=== PATIENT | female | born 1955 | race Caucasian/White ===

== ENCOUNTER 2017-03-23 12:57 | Emergency (ER) | payer OTHER ==
[~2017-03-23] VITALS: Ht 154.9 cm; Wt 50.0 kg
[~2017-03-23 12:57] MED LIST: DNSIS60 SQ; HYDR-3419 PO; ONDA4TAB46 PO; SULI200T4 PO
[2017-03-23 13:01] VITALS: TEMP 36.8; Ht 154.9 cm; Wt 50.0 kg
[2017-03-23] MEDS ORDERED: ACETAMINOPHEN 500 MG TAB PO STA (13:35)
[2017-03-23] MEDS ORDERED: KETOROLAC TROMETHAMINE 30 MG/ML VIAL IV STA (13:35)
[2017-03-23] MEDS ORDERED: HYDROmorphone INJ 2 MG/ML SYR/VIAL IV STA (13:35)
[2017-03-23] MEDS ORDERED: ONDANSETRON INJ 2 MG/ML 2 ML VIAL IV STA (13:35)
[2017-03-23] MEDS ORDERED: DEXAMETHASONE INJ 10 MG in SYRINGE 0 ML IV STA (13:35)
[2017-03-23] MEDS ORDERED: HYDROmorphone INJ 1 MG/ML SYR ONE (13:55)
[2017-03-23] MEDS ORDERED: DEXAMETHASONE **PF** INJ 10 MG/ML VIAL ONE (13:58)
[2017-03-23] MEDS ORDERED: PRED-301 PO (14:09)
[2017-03-23] MEDS ORDERED: NABU500T3 PO (14:09)
[2017-03-23] MEDS ORDERED: TRAM-10 PO (14:10)
[2017-03-23] MEDS ORDERED: OXYCODONE HCL IR 5 MG TAB (IMMEDIATE RELEASE) PO STA (16:15)
[2017-03-23] MEDS ORDERED: OXYC1TAB3 PO (16:38)
[2017-03-23] MEDS ORDERED: METH4PAK PO (16:38)
--- NOTE | 2017-03-23 16:39 | EMERGENCY ROOM VISIT NOTE ---
History Report prepared by Chloé: Ashwin Helm Under the Supervision of: Dr. David Frank M.D. First contact with patient: 13:19 Chief Complaint: LEG PAIN,LEG INJURY Stated Complaint: EXTREME PAIN IN BOTH LEGS History of Present Illness The patient is a 62 year old white female with a past medical history of RA, and osteoporosis who presents to the ED with a cc of constant bilateral leg pain beginning yesterday. Positive leg numbness and tingling. Rates her pain as a 10/10 in severity. She attributes her symptoms to arthritis of her lumbar spine. She chronically has pain, numbness and tingling below the knees for the past month. Nothing has improved her symptoms. She is on Prednisone for her RA. No recent trauma or falls. No IV drug use. Difficulty with urination this morning which she attributes to taking Tramadol. Negative incontinence, other urinary symptoms, or weakness. Source of History: patient Onset: Yesterday Position: leg (bilateral) Symptom Intensity: 10/10 Timing: constant Modifying Factors (Relieving): other (none) Associated Symptoms: + numbness (bilateral leg), No weakness Note: Additional symptoms: bilateral leg tingling. Negative incontinence. Review of Systems See HPI for pertinent positives and negatives. A total of ten systems were reviewed and were otherwise negative. Past Medical & Surgical Medical Problems: (1) Aseptic loosening of prosthetic knee (2) Cervical stenosis of spinal canal (3) Osteoporosis (4) Rheumatoid arthritis Family History No pertinent family history stated. Social History Smoking Status: Never Smoker Drug Use: none Current/Historical Medications Scheduled Denosumab (Prolia), 1 DOSE SQ DIRECTED Methylprednisolone (Medrol Dosepak), 1 PKT PO DAILY Nabumetone (Relafen), 1 DOSE PO BID Prednisone (Prednisone), 5 MG PO BID Scheduled PRN Oxycodone Immediate Rel Tab (Roxicodone Ir), 5 MG PO Q6H PRN for Pain Tramadol (Ultram), 50 MG PO QID PRN for Pain Allergies Coded Allergies: Chlorhexidine (Verified Allergy, Intermediate, REDNESS/ITCHING, 03/23/17) Adhesives (Verified Allergy, Unknown, ALLERGIC TO TAPE, HOWEVER PAPER TAPE IS OK, 03/23/17) Uncoded Allergies: VICRYL (Allergy, Unknown, "SUTURES DON'T DISSOLVE", 07/15/13) Physical Exam Vital Signs Date Time Temp Pulse Resp B/P (MAP) Pulse Ox O2 Delivery O2 Flow Rate FiO2 03/23/17 17:43 106 20 136/74 96 03/23/17 16:21 99 16 97 Room Air 03/23/17 15:22 102 16 131/82 99 Room Air 03/23/17 14:22 111 16 98 Room Air 03/23/17 13:35 115 03/23/17 13:29 111 22 144/88 100 Room Air 03/23/17 13:01 36.8 120 18 99 Room Air Physical Exam GENERAL: Awake, alert, well-appearing, NAD HENT: Normocephalic, atraumatic. EYES: Normal conjunctiva. Sclera non-icteric. NECK: Supple. No nuchal rigidity. FROM. RESPIRATORY: CTAB, no rhonchi, wheezing, crackles CARDIAC: RRR, no MRG ABDOMEN: Soft, NTND, BS+ MSK: No chest wall TTP, no LE edema. Kines-tape in place. No reproducible midline or paraspinal TTP. Negative straight leg raise bilaterally. No pain with internal or external rotation of the hip. Good extension and flexion of the hip, knee, and ankle. No saddle anesthesia. NEURO: GCS 15, CN 2-12 intact, moves all 4s on command SKIN: No rash or jaundice noted. Medical Decision & Procedures Medications Administered Medications (Trade) Dose Ordered Sig/Golden Route Start Time Stop Time Status Last Admin Dose Admin Ondansetron HCl (Zofran Inj) 4 mg NOW STAT IV 03/23/17 13:35 03/23/17 13:40 DC 03/23/17 14:11 4 MG Acetaminophen (Tylenol Tab) 1,000 mg NOW STAT PO 03/23/17 13:35 03/23/17 13:40 DC 03/23/17 14:13 1,000 MG Ketorolac Tromethamine (Toradol Inj) 30 mg NOW STAT IV 03/23/17 13:35 03/23/17 13:40 DC 03/23/17 14:12 30 MG Hydromorphone HCl (Dilaudid Inj) 1 mg STK-MED ONCE .ROUTE 03/23/17 13:55 03/23/17 13:56 DC 03/23/17 14:11 1 MG Dexamethasone Sodium Phosphate (Dexamethasone Inj Pf) 10 mg STK-MED ONCE .ROUTE 03/23/17 13:58 03/23/17 13:59 DC 03/23/17 14:12 10 MG Oxycodone HCl (Roxicodone Immediate Rel Tab) 5 mg NOW STAT PO 03/23/17 16:15 03/23/17 16:16 DC 03/23/17 16:23 5 MG ED Course 1329: The patient was evaluated in room A12B. A complete history and physical exam was performed. 1625: I reevaluated the patient. Discussed results and discharge instructions: she verbalized understanding and agreement. The patient is ready for discharge. Medical Decision The patient is a 62 year old white female with a past medical history of RA, and osteoporosis who presents to the ED with a cc of constant bilateral leg pain beginning yesterday. Differential diagnosis: Etiologies such as musculoskeletal, disc herniation, fracture, aortic disease, metastatic disease, cord compression, discitis, infection, renal colic, gastrointestinal, acute exacerbation of chronic back pain, sciatica, cauda equina, as well as others were entertained. Patient was seen and evaluated at the bedside. Patient does have a prior history of rheumatoid arthritis as well as some spinal degenerative disease. Patient did have a recent MRI was seen by Dr. Valero who is following her. Patient was complaining of some pain. Patient does take DMARDs but no other immunosuppressants. Patient denies any bowel or bladder incontinence, saddle anesthesia, unexplained weight loss, history of cancer, IV drug abuse, or fever. Patient did complain of some bilateral lower extremity numbness in her feet which she said is chronic in nature. Patient does have some difficulty with flexion and extension at the ankle secondary to her RA. On exam the patient is able to flex and extend at the hip the knee and the ankles without issue. Patient does have feeling in her SP, DP, and tibialis sensory areas in her lower extremities. Given that the patient doesn't have any new or red flag type symptoms no imaging was obtained. The patient did receive pain medication. I did discuss case with Dr. Valero was on-call he agreed to have her follow-up. I did talk with case management who arranged for follow-up tomorrow. Patient was given a Medrol Dosepak as well as some narcotic medication. Patient was told that she should take her steroids as well as Tylenol and that if she still had pain she could try the tramadol. If she still continued to have discomfort she could take the narcotic. Patient was advised that narcotic medication can be sedating and cause respiratory depression and that they are habit forming. Patient understood. Patient was deemed suitable for outpatient follow-up and treatment at this time. Patient was given strict follow-up, discharge, and return precautions. All questions were answered. Patient was deemed suitable for outpatient follow-up at this time. Patient agreed with the plan of care and was safely discharged home. The chart was completed utilizing OpenText Speech voice recognition software. Grammatical errors, random word insertions, pronoun errors, and incomplete sentences are an occasional consequence of this system due to software limitations, ambient noise, and hardware issues. Any formal questions or concerns about the content, text, or information contained within the body of this dictation should be directly addressed to the physician for clarification. Medication Reconcilliation Current Medication List: was personally reviewed by me Blood Pressure Screening Patient's blood pressure: Elevated blood pressure Blood pressure disposition: Elevated BP felt to be situational Consults Time Called: 1550 Consulting Physician: Dr. Valero - Orthopedics Returned Call: 1554 Discussed the patient's case. Dr. Valero does not feel that any intervention is warranted, and recommends pain control. Impression Primary Impression: Back pain Scribe Attestation The scribe's documentation has been prepared under my direction and personally reviewed by me in its entirety. I confirm that the note above accurately reflects all work, treatment, procedures, and medical decision making performed by me. Departure Information Dispostion Home / Self-Care Prescriptions Oxycodone Immediate Rel Tab (ROXICODONE IR) 5 Mg Tab 5 MG PO Q6H Y for Pain, #12 TAB Prov: David Frank M.D. 03/23/17 Methylprednisolone (MEDROL DOSEPAK) 4 Mg Dallin 1 PKT PO DAILY, #1 PKT Prov: David Frank M.D. 03/23/17 Referrals Doron Veloz D.OMichelle (PCP) Patient Instructions Back Pain - [facility], Back Pain Relieve, Leg Low Back Pain Poss Causes, My [facility] Additional Instructions Please return to the emergency department if you have worsening or recurrent symptoms not amenable to at-home treatment. Please call for a follow-up appointment with her primary care physician. Please take your medications as prescribed. If you have other concerns and/or complaints please feel free to also call your primary care physician's office or return the ED for further evaluation, management, and treatment. Please take your steroids preferably in the morning with food. Do not take NSAIDs while taking this medication. You may consider taking a Pepcid or Zantac to help with the possible upset stomach. Please keep her follow-up appointment tomorrow in Dr. Valero's office. You received narcotic or benzodiazepene medication while in the emergency room today. This is an addictive medication that may cause drowziness as well as constipation. Do not drive, operate heavy machinery, or drink alcohol under the influence of this medication. You may take tylenol 1000 mg every 6 hours as needed for pain. As we discussed please take your medications in a stepwise fashion. He may take the steroids as well as Tylenol. If he still have discomfort he may take the tramadol. If you are still having discomfort you then may take the narcotic. Please only use the narcotics as needed. They are habit forming and cause sedation and/or a respiratory depression. Take your medications as prescribed. You have been examined and treated today on an emergency basis only. This is not a substitute for, or an effort to provide, complete comprehensive medical care. It is impossible to recognize and treat all injuries or illnesses in a single emergency department visit. It is therefore important that you follow up closely with [facility], your PCP, and/or your specialist(s). Call as soon as possible for an appointment. Thank you for your time and consideration. I look forward to speaking with you again soon. Please don't hesitate to call us if you have any questions. Problem Qualifiers Primary Impression: Back pain Back pain location: low back pain Chronicity: chronic Back pain laterality : unspecified Sciatica presence: unspecified whether sciatica present Qualified Codes: M54.5 - Low back pain; G89.29 - Other chronic pain
[2017-03-23 17:43] VITALS: BP 136/74; PULSE 106; O2SAT 96
== END 2017-03-23 17:43 | disposition home or self-care (01) ==
LOC: C.EDB 12:58 → C.EDA 17:43
DX: M54.5 Low back pain (principal); G89.29 Other chronic pain; R20.0 Anesthesia of skin; R20.2 Paresthesia of skin; M06.9 Rheumatoid arthritis, unspecified; M81.0 Age-related osteoporosis without current pathological fracture; M47.816 Spondylosis without myelopathy or radiculopathy, lumbar region; M48.02 Spinal stenosis, cervical region

== ENCOUNTER 2019-02-05 02:19 | Inpatient (IN) ==
[2019-02-05] MEDS ORDERED: ALUMINUM/MAGNESIUM SUSP 30 ML UDC PO STA (02:43)
[2019-02-05] MEDS ORDERED: FAMOTIDINE 20MG/5ML IV PUSH IV STA (02:43)
[2019-02-05] MEDS ORDERED: fentaNYL citrate 100 MCG/2 ML VIAL IV STA (02:50)
[2019-02-05] MEDS ORDERED: ASPIRIN CHEW 324 MG PO STA (02:50)
[2019-02-05 02:56] LABS: Basophils # (auto) 0.05 K/uL (0-0.2); Basophils % (auto) 0.4 %; Eosinophils # (auto) 0.22 K/uL (0-0.5); Eosinophils % (auto) 1.7 %; Hematocrit (blood only) 43.2 % (37-47); Hemoglobin 15.1 g/dL (12.0-16.0); Immature Granulocytes # (auto) 0.02 K/uL (0.00-0.02); Immature Granulocytes % (auto) 0.2 %; Lymphocytes % (auto) 28.9 %; Mean Corpuscular Hemoglobin 32.5 pg (25-34); Mean Corpuscular Volume 93.1 fL (80-100); Mean Platelet Volume 8.4 fL (7.4-10.4); Monocytes # (auto) 0.96 K/uL (0.11-0.59); Monocytes % (auto) 7.5 %; Neutrophils # (auto) 7.84 K/uL (1.4-6.5); Neutrophils % (auto) 61.3 %; Platelet Count 286 K/uL (130-400); RDW Coefficient of Variation 13.2 % (11.5-14.5); RDW Standard Deviation 44.8 fL (36.4-46.3); Red Blood Count 4.64 M/uL (4.2-5.4); White Blood Count 12.79 K/uL (4.8-10.8)
[2019-02-05] MEDS ORDERED: fentaNYL citrate 100 MCG/2 ML VIAL ONE (03:07)
[2019-02-05] MEDS ORDERED: NiCARDipine HCL INJ 2.5 MG/ML 10 ML AMP ONE (03:07)
[2019-02-05] MEDS: SODIUM CHLORIDE 0.9% 500 ML IV SCH ×3 (03:07→11:27)
[2019-02-05] MEDS ORDERED: HEPARIN (PORCINE) 1000 UNIT/ML 10 ML (CATH LAB USE ONLY) ONE (03:07)
[2019-02-05] MEDS ORDERED: MIDAZOLAM HCL 1 MG/ML 2ML VIAL ONE ×2 (03:08→04:08)
[2019-02-05] MEDS ORDERED: NITROGLYCERIN/D5W 100MCG/ML 20ML SYR ONE (03:08)
[2019-02-05 03:19] LABS: D Dimer 2060 ug/L FEU (0-500)
[2019-02-05 03:22] LABS: Albumin Level 4.3 gm/dl (3.4-5.0); BUN Creatinine Ratio 18.3 (10-20); Calcium 9.4 mg/dl (8.5-10.1); Creatinine Clr Calc Pharmacy 57.9 ml/min; Est GFR (African American) 96.6; Est GFR (Non-African American) 83.3; Potassium 3.2 mmol/L (3.5-5.1)
--- NOTE | 2019-02-05 03:30 | Pre Anesthesia Assessment ---
Date of Service February 05, 2019 Pre Sedation Assessment Vital Signs Temp Pulse Pulse Resp BP Pulse Ox 02/05/19 03:10 92 H 20 148/90 H 97 02/05/19 02:48 84 20 118/70 96 02/05/19 02:22 97.3 F L 81 18 99 Cardiovascular RRR, no murmur, no edema Respiratory normal respiratory effort, lungs clear to auscultation Pre-Sedation Airway Assessment Smoking Status: Never smoker Hx Sleep Apnea: No Hx Difficult Intubation: No Short, Thick Neck: No Thyromental Distance: > or= 3.5 Finger Breadths Oral Cavity: + WNL Mallampati Class: III ASA: ASA3 Procedure Planning Contraindications for Sedation: none Current Medications Reviewed: Yes Notes The planned sedation has been discussed with the patient. Informed Consent was obtained. I have identified the patient, determined the appropriateness of sedation and have assessed the patient immediately prior to the procedure. All medicine(s) and interventions are by my order.
--- NOTE | 2019-02-05 03:34 | Cardiology Consultation ---
Date of Consultation February 05, 2019 Assessment & Plan (1) ACS (acute coronary syndrome): Presentation concerning for acute MO and recommend proceeding with emergent cardiac catheterization and likely primary PCI. No apparent contraindications to procedure. Discussed risks, benefits, alternatives of procedure with patient and they are willing to proceed. Further recommendations pending findings of coronary angiography. History of Present Illness History of Present Illness 63-year-old woman here with acute chest pain and ECG concerning for acute MO. Patient seen emergently in the ED after heart alert activated post ECG on arrival. Reports no significant cardiac history other than a prior echo for murmur and palpitations. Her medical history is remarkable for rheumatoid arthritis, cervical stenosis with chronic pain and lower extremity neuropathy. She also has osteoporosis/osteoarthritis and is post total knee replacement. Reports remote DVT potentially in setting of surgery. Chest pain began approximately 30 minutes after dinner last night. Describes as substernal chest pressure with associated belching. Pain radiating up into the neck. Denies similar symptoms in the past. Pain at its worst 8 out of 10, now 4 out of 10 following pain meds in the ED. Hemodynamically stable. EKG showed subtle inferior ST elevations and lateral ST depressions. Allergies Allergy/AdvReac Type Severity Reaction Status Date / Time chlorhexidine Allergy Intermediate REDNESS/ITC Verified 02/05/19 02:55 ARBEN adhesive Allergy Unknown ALLERGIC Verified 02/05/19 02:55 TO TAPE, HOWEVER PAPER TAPE IS OK VICRYL Allergy Unknown "SUTURES Uncoded 02/05/19 02:55 DON'T DISSOLVE" Home Medications Home Medications Medication Instructions Recorded Confirmed Type adalimumab [Humira Pen] 0 mg SUBCUT .COMPLEX 02/05/19 02/05/19 History denosumab [Prolia] 0 mg SUBCUT USEASDIRECTD 02/05/19 02/05/19 History gabapentin 600 mg PO TID 02/05/19 02/05/19 History nabumetone 500 mg PO BID 02/05/19 02/05/19 History Patient History Medical History (Updated 02/05/19 @ 04:21 by Page Mendoza) Aseptic loosening of prosthetic knee (Resolved 07/19/13) Cervical stenosis of spinal canal (Chronic 04/11/14) Osteoporosis (Chronic) Rheumatoid arthritis (Chronic) Surgical History No pertinent past surgical history Social History Feels Safe at Home: Yes Smoking Status: Never smoker Review of Systems Review of Systems: not obtained in the setting of emergent situation Physical Exam Physical Exam: General: Comfortable, no acute distress HEENT: Sclerae anicteric, mucous membranes moist Lungs: Clear to auscultation bilaterally Cardiac: Regular rate and rhythm, no murmurs. Abdomen: Soft, nontender, nondistended, positive bowel sounds. Extremities: Warm, well perfused, no edema. 2+ radial pulses. Joint deformities consistent with rheumatoid arthritis Skin: No rashes or lesions. Neuro: Nonfocal Psych: Alert orient x3, normal affect and mood Results & Data Vital Signs (Past 12 Hours) Vital Signs Temp Pulse Pulse Resp BP Pulse Ox 02/05/19 03:10 92 H 20 148/90 H 97 02/05/19 02:48 84 20 118/70 96 02/05/19 02:22 97.3 F L 81 18 99 PG Care Time/CCT Total # of Minutes Spent Total Time Spent with Patient: Total time spent is greater than 50% in coordination of care (as documented) at patient's floor/unit and/or counseling patient:
[2019-02-05 03:44] LABS: Albumin Globulin Ratio 0.9 (0.9-2); Bilirubin,Total 0.4 mg/dl (0.2-1); Globulin 4.7 gm/dl (2.5-4.0); Troponin I 0.08 ng/ml (0-0.045)
[2019-02-05] MEDS ORDERED: ATROPINE SULFATE 0.1 MG/ML 10ML SYR IV ONE (04:01)
[2019-02-05] MEDS ORDERED: DOPamine 400MG / 250ML D5W (CATH LAB USE ONLY) ONE (04:02)
[2019-02-05] MEDS ORDERED: TICAGRELOR 90 MG TAB PO ONE (04:28)
[2019-02-05] MEDS ORDERED: ICU PROTOCOL FOR HYPERGLYCEMIA PRN (04:37)
[2019-02-05] MEDS ORDERED: ONDANSETRON INJ 2 MG/ML 2 ML VIAL IV PRN (04:42)
[2019-02-05] MEDS ORDERED: NSS + 20MEQ KCL 20 MEQ/1,000 ML BAG IV SCH (04:45)
--- NOTE | 2019-02-05 04:46 | Post Anesthesia Assessment ---
Date of Service February 05, 2019 Post Sedation Assessment Vital Signs Temp Pulse Pulse Resp BP Pulse Ox 02/05/19 03:10 92 H 20 148/90 H 97 02/05/19 02:48 84 20 118/70 96 02/05/19 02:22 97.3 F L 81 18 99 Recovery Score Activity: Moves 4 extremities Respiration: Deep Breath/Cough Circulation: +/-20% PreAnes Value Consciousness: Fully Awake Oxygen Saturation: O2 needed for >90% Discharge Sedation Level of Care: Fast Track Phase II Post Sedation Plan On clinical assessment, the patient appears to have tolerated the sedation without complications. Patient is recovering as anticipated. Patient will continue to be monitored by nursing and may be discharged when sedation discharge criteria are met per below protocol. Upon Completions of procedure up to 15 minutes continue every 5 minute vital signs and the P.A.R. score; then discharge to a Phase I or Fast Track to Phase II per the following guidelines: * Discharge Patient to appropriate Phase II area if PAR is 8 or greater or return to pre- procedure baseline. The post - procedure orders will be as directed. * If PAR score is less than 8 or not return to pre-procedure baseline then patient will follow Phase I monitoring till PAR is reached for Phase II. The Phase I may be done in procedure room or may call to secure a Phase I area. * If naloxone or flumazenil are used for reversal, hold in Phase I for continued monitoring from when last reversal dose was given for a minimum of 60 minutes or longer pending the nurse and/or physician discretion of patient condition before discharge to Phase II. Please call the Sedation Physician to re-evaluate and complete post-note for discharge to Phase II area. Do NOT discharge from procedure sedation or Phase 1 until post- sedation evaluation note is complete by procedure /sedation MD Sedation Discharge Instructions to be given to the patient at discharge to home.
--- NOTE | 2019-02-05 04:49 | Cardiac Catheterization ---
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 Cardiac Status Clinical evaluation leading to the procedure CAD Presenation: STEMI Anginal Classification: CCS IV Heart Failure: No Cardiogenic Shock within 24 Hours: No Cardiac Arrest within 24 Hours: No Imaging Studies Past 6 Months: No Stress Studies Past 6 Months: No Diagnostic Physicians Name: Erik Wall MD Status: Emergency Closure Device Percutaneous Entry Location: Radial Closure Device: Radial Band Recommendations: PCI without planned CABG PCI Indication: Immediate PCI for STEMI First Noted: First EKG Lesion Segment Name: Mid RCA Culprit Artery: Yes Stenosis Prior to Rx (%): 100 Chronic Total Occlusion: No IVUS: No FFR: No Pre-Procedure BRITTNEY Flow: 0 Previously Treated Lesion: No Lesion Complexity: High/C Lesion Length (mm): 30 Thrombus Present: Yes Bifurcation Lesion: No Guidewire Across Lesion: Stenosis Post-Procedure (%): 0 Post-Procedure BRITTNEY Flow: 3 Devices(s) Deployed: Yes Yes Intraprocedure Events Significant Disection: No Perforation: No Cardiac Cath Procedure Full Procedure Date February 05, 2019 Pre-Procedure Diagnosis Pre-Procedure Diagnosis: STEMI AUC Score AUC Score: 9 Post-Procedure Diagnosis Post-Procedure Diagnosis: Severe CAD, Unsuccessful PCI and Elevated Intracardiac Pressures Procedure(s) Performed Procedure(s) Performed: Coronary Angiography, Left Heart Cath, Drug Eluting Stent and Ultrasound Guided Vascular Access Tin Flipper Erik Wall MD Podiatric Medicine Doctor(s) Sheryl Estimated Blood Loss Estimated Blood Loss: 15 Medication(s) Medication(s): Atropine, Fentanyl, Heparin, Nicardipine, Nitroglycerin and Versed Medication(s): Ticagrelor Summary of Findings Indication: STEMI/Heart Alert Access: 6 Fr right radial artery under ultrasound guidance Catheters: [place], JR4 guide Findings: LM -Short, medium caliber, luminal irregularities LAD -small to medium caliber, calcified, 60 to 70% mid segment disease, 60% latemid diffuse disease. 2 small diagonals with moderate diffuse disease Circumflex -medium caliber, 80% mid stenosis, 40% latemid stenosis, 50% distal stenosis at takeoff of OM 2. 50 to 60% proximal stenosis of medium caliber, terminal, bifurcating left PLB. RCAlarge caliber, dominant, 100% acute mid occlusion LVEDP -15 -- PCI -- Antithrombotic therapy: Heparin, ticagrelor Procedure: RCA cannulated with JR4 guide Bobtailer 50 wire passed across lesion into distal vessel Mid RCA lesion predilated with 2.5 compliant balloon Post balloon dilation bradycardic to 20s and hypotensive requiring atropine and IV fluids. Dilated lesion stented with 3.5 x 28 mm Xience Palmira Stent post-dilated with 3.5 noncompliant balloon IC vasodilators administered for spasm Residual disease just proximal to stent covered with a second overlapping ELSY (4.0 x 8 mm Xience Palmira). Post procedure BRITTNEY 3 flow, stents well expanded with minimal residual stenosis and no apparent cardiac complications. Arterial Closure: TR band Summary: 1. Acute 100% mid RCA occlusion 2. Severe multi--vessel non-culprit coronary artery disease -80% mid circumflex 60 to 70% mid LAD 3. Normal intracardiac filling pressure 4. Transient bradycardia/hypotension with reperfusion which responded to atropine/IV fluids. 5. Successful PCI of mid RCA occlusion with 2 overlapping drug-eluting stents (4.0 x 8, 3.5 x 28 Xience Palmira). 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 Trend troponins until peak, Check Echo Uptitrate beta-kayla/TRIPP as BP allows High-dose statin Consult cardiac Rehab Plan on staged PCI of circumflex possibly later this hospitalization. Hemodynamics Rest Ao:: 208/106/151 Final Ao: 168/92/120 LV: 219/15 Recommendations Recommendations: PCI without planned CABG Specimens Specimens: None Radiation Exposure (mGy) 1419 Contrast (mls) 120 Fluids (cc crystalloids) Fluids (cc crystalloids): 600 Drains Drains: None Anesthesia Moderate Procedural Complication(s) None Disposition ICU I attest to the content of the Intraoperative Record and any orders documented therein. Any exceptions are noted below. [facility] Card Cath Procedure Codes Cardiac Catheterization Procedure 1: Cardiovascular Cath Procedures: 41141 Coronaries Therapeutic Services & Ancillary Proc Procedure 1: Cardiovascular Tx and Anc Procedures: 50848 Ultrasonic Guidance Vascular Access Moderate Sedation Procedure 1: Sedation/Anesthesia: 13933 Mod Sedation by the same physician;Init15 Min Child Age 5 & Up Procedure 2: Sedation/Anesthesia: 50241 Mod Sedation by the same physician; Ea [id number] Minutes Stenting Procedure 1: Cardiovascular Stent Procedures: 77270 Perc transluminal revascularization of acute sub/total occl, aMI PG Care Time/CCT Total # of Minutes Spent Total Time Spent with Patient: Total time spent is greater than 50% in coordination of care (as documented) at patient's floor/unit and/or counseling patient:
[2019-02-05] MEDS: LISINOPRIL 5 MG TAB PO SCH (05:27)
[2019-02-05 05:40] LABS: Chol HDL Ratio 5; Cholesterol 320 mg/dl (0-200); HDL Cholesterol 67 mg/dl; LDL Cholesterol Calculated 223 mg/dl; Triglycerides 152 mg/dl (0-150); VLDL Cholesterol 30 mg/dl
--- NOTE | 2019-02-05 06:13 | Critical Care Consultation ---
Date of Consultation February 05, 2019 Assessment & Plan (1) Admitted to intensive care unit: Reason Critically Ill: 63-year-old female with acute ST segment elevation myocardial infarction status post PTCA with ELSY x2 to the RCA. NEURO - * CAM ICU: NEGATIVE * Pain: Goal to discern between cardiac an non-cardiac causes. * Nitro vs. Morphine PRN. CARDIAC/VASCULAR - * STEMI s/p PTCA w/ DESx2 to the RCA: * Intraprocedural bradycardia w/ ballooning. Monitor closely for any dysrhythmias. * ASCVD per typical. * AM Echo. * Cardiology consultation appreciated. * Plans for reassessing nonculprit Circumflex 80% stenosis in the near future. * EKG (Initial): NSR@80bpm, ST Elevations inferiorly/laterally, QTc 452ms. * EKG (post cath): NSR@99bpm, resolved ST elevations. QTc 495ms. * Monitor on telemetry. RESPIRATORY - * No h/o pulmonary disease. * Saturating well on RA. GI/NUTRITION - * No concerns at this time. * AHA diet. RENAL/LYTES - * Hypokalemia: * Replace as needed. * IVF: NSS@125mL/hr for a total of 500mL. Will be fully PO soon. - * No concerns at this time. ENDO - * No h/o DM or Thyroid Dz * BSGs per unit protocol. ISS --> gtt per unit policy. HEME - * Stable H&H ID - * No concerns for infectious contribution at this time. LINES/IV ACCESS - * PIVs x1 * TR Band to the RIGHT wrist. DVT PROPHYLAXIS - * Hold initally s/p Brilinta/Heparin dosing intraprocedurally. * DAPT to follow. * SCDs I have personally spent 35 minutes of critical care time in the direct management of this patient. This is a life/limb threatening event. This includes time spent evaluating patient, direct bedside care, chart review, placing orders, interpretation of diagnostic studies, discussion with consultants, patient, and family members, as well as other required patient management activities. This time is exclusive of all separately billable procedures, and teaching time and separate from and in addition to any other critical care service time. Thank you for allowing us to participate in the care of this patient. Please refer to my attending physician's documentation for any further recommendations. (2) S/P drug eluting coronary stent placement: (3) S/P PTCA (percutaneous transluminal coronary angioplasty): (4) Chest pain: (5) ST elevation (STEMI) myocardial infarction: (6) ACS (acute coronary syndrome): (7) Rheumatoid arthritis: (8) Osteoporosis: Supervising Physician Co-Signing Physician Notes Patient seen and examined. EMR reviewed. Discussed with ICU nurse and patient at bedside. Discussed with MELVIN extensively. Impression 63-year-old female with severe rheumatoid arthritis admitted with nikolski coronary syndrome status post cardiac catheterization with stent to the RCA. She has multifocal disease and plan is for staged PCI during this hospitalization. She was loaded on dual antiplatelet therapy after her stent was placed and is being monitored in the ICU. She is pain-free. She has been hemodynamically stable. Recommendations: 1. ACS: Continue management per cardiology. Continue dual antiplatelet agent. Beta-kayla and TRIPP inhibitor as tolerated. Follow-up echocardiogram. Serial troponins per cardiology. 2. Rheumatoid arthritis: On Humira and Prolia as an outpatient. Continue her Neurontin and nabumetone. 3. Leukocytosis: Suspect reactive due to acute coronary syndrome. Afebrile. No indication for antibiotics currently. Continue to follow. 4. Mild hyponatremia and hypokalemia. Electrolyte replacement protocols. 5. Hyperlipidemia: Statin therapy. Will observe in the ICU overnight tonight. If she does well she can likely transfer to the floor with the hospitalist tomorrow. She was advised to contact us if she experiences any chest pain or shortness of breath. History of Present Illness Attending Physician: Oz Ruth MD History of Present Illness Patient is a 63-year-old female with a significant past medical history of severe rheumatoid arthritis, osteoporosis, cervical spinal stenosis, and peripheral neuropathy who presented to the emergency department this evening with several hours of central chest pain with radiation to the neck. She initially thought her symptoms were consistent with gastric reflux, however she had continued persistence which prompted concerns. She was brought to the emergency department by private vehicle with her . Upon presentation, the patient was noted to have inferior and lateral ST segment elevation changes. The patient was hypertensive. She received fentanyl, aspirin, Pepcid, and Maalox with complete resolve symptoms. Her alert was called in the patient successfully underwent PTCA with ELSY x2 to the RCA. She was found to have a 90% occlusion in the RCA as well as 80% occlusion of the circumflex and 60% occlusion of the LAD. Per interventionalist, the patient will hopefully be scheduled in the next few days to undergo PTCA with stenting of the circumflex. Upon arrival in the ICU, the patient is awake, alert, and oriented. She reports absolutely no chest pain at this time. She offers no other complaints other than that she suggests that all blood pressures to be performed manually. Allergies Allergy/AdvReac Type Severity Reaction Status Date / Time chlorhexidine Allergy Intermediate REDNESS/ITC Verified 02/05/19 02:55 ARBEN adhesive Allergy Unknown ALLERGIC Verified 02/05/19 02:55 TO TAPE, HOWEVER PAPER TAPE IS OK VICRYL Allergy Unknown "SUTURES Uncoded 02/05/19 02:55 DON'T DISSOLVE" Home Medications Home Medications Medication Instructions Recorded Confirmed Type adalimumab [Humira Pen] 0 mg SUBCUT .COMPLEX 02/05/19 02/05/19 History denosumab [Prolia] 0 mg SUBCUT USEASDIRECTD 02/05/19 02/05/19 History gabapentin 600 mg PO TID 02/05/19 02/05/19 History nabumetone 500 mg PO BID 02/05/19 02/05/19 History Patient History Medical History Aseptic loosening of prosthetic knee (Resolved 07/19/13) Cervical stenosis of spinal canal (Chronic 04/11/14) Osteoporosis (Chronic) Rheumatoid arthritis (Chronic) Surgical History No pertinent past surgical history Social History Communication Ability: Effective Beliefs That Will Affect Care: None Current Living Situation: Spouse Other Information That Helps Us Care for You: No Feels Safe at Home: Yes Safety Concerns: Feels Safe At This Time Smoking Status: Never smoker Hx Alcohol Use: No Hx Substance Use: No Review of Systems Review of Systems: A complete 10 point review of systems was reviewed with the patient with pertinent positives and negatives as per history of present illness. All else were negative. Physical Exam Physical Exam: VITAL SIGNS - Vital signs and nursing notes were reviewed. GENERAL - 63-year-old female appearing her stated age who is in no acute distress. Communicates well with provider and answers questions appropriately. HEAD - NC/AT. EYES - PERRL with EOMI bilaterally. Sclera anicteric. Palpebral conjunctiva pink and moist with no injection noted. EARS - No deformities of external structures noted on gross examination bilaterally. NOSE - Midline and without cyanosis. MOUTH/OROPHARYNX - Without perioral cyanosis. Buccal mucosa pink and moist and without leukoplakia. Tongue midline with equal elevation of palate bilaterally. Good dentition noted. NECK - Neck with FROM. Supple to palpation. LUNGS - Chest wall symmetric without accessory muscle use, intercostals ret ractions, or central cyanosis. Normal vesicular breath sounds CTA B/L. No wheezes, rales, or rhonchi appreciated. CARDIAC - RRR with S1/S2. No murmur, rubs, or gallops appreciated. No reproducible tenderness to palpation appreciated over the anterior chest wall. ABDOMEN - Abdominal contour flat without pulsations or visible masses. BS normoactive all four quadrants. No tenderness, palpable masses, hepatosplenomegaly, or ascites noted. EXTREMITIES - Contractures of the bilateral hands. No clubbing or peripheral cyanosis. No pretibial edema present. +3/5 radial and dorsalis pedis pulses palpated throughout. +5/5 strength noted in UE/LE bilaterally. NEUROLOGIC - Cranial nerves II through XII grossly intact. Sensory intact to light touch throughout. PSYCH - A&Ox3 and cooperates fully with examiner. Pt is very pleasant and interacts well with examiner. Results & Data Vital Signs (Past 12 Hours) Vital Signs Temp Pulse Pulse Resp BP BP Pulse Ox 02/05/19 05:56 36.2 C L 86 20 130/80 96 02/05/19 05:45 88 20 112/80 97 02/05/19 05:30 92 H 18 110/60 98 02/05/19 05:15 94 H 20 102/79 95 02/05/19 05:00 94 H 20 101/80 95 02/05/19 03:10 92 H 20 148/90 H 97 02/05/19 02:48 84 20 118/70 96 02/05/19 02:22 36.3 C L 81 18 99 Coding Level of Care Code 68240 Inpt Consult Level 4 Diagnoses Admitted to intensive care unit Z78.9 S/P drug eluting coronary stent placement Z95.5 S/P PTCA (percutaneous transluminal coronary angioplasty) Z98.61 Chest pain R07.9 Chest pain type: unspecified ST elevation (STEMI) myocardial infarction I21.3 Involved coronary artery: unspecified coronary artery ACS (acute coronary syndrome) I24.9 Rheumatoid arthritis M06.9 Osteoporosis M81.0 (1) ST elevation (STEMI) myocardial infarction Involved coronary artery: unspecified coronary artery Qualified Code(s): I21.3 - ST elevation (STEMI) myocardial infarction of unspecified site (2) Chest pain Chest pain type: unspecified Qualified Code(s): R07.9 - Chest pain, unspecified
--- NOTE | 2019-02-05 06:36 | Emergency Department Note ---
Entered by Page Mendoza acting as a scribe for History of Present Illness General Chief complaint: Arrhythmia/Palpitations Stated complaint: GAS PAIN,SHOULDER ARM PAIN,PAL Time Seen by Provider: 02/05/19 02:27 Source: patient History of Present Illness Onset (ago): day(s) 1 Location: abdomen Radiation: neck Pain Consistency: + constant Maximum Pain Intensity: 7 Current Pain Intensity: 7 Quality: + crushing Relieved By: + none Exacerbated By: + none Associated symptoms: + denies other symptoms (denies recent changes in bowel movements), + diaphoresis, + nausea/vomiting and + other (abdominal pain); no fever/chills and no shortness of breath Treatments prior to arrival: other (Gas X) The patient is a 63 year old female who presents to the Emergency Room with complaints of abdominal pain that started today. She reports gas pain in her upper stomach, as well as under her right chest and arm. The pain also radiates up to her neck and jaw. She notes that she has a history of neck surgery and blood pressure issues. She notes that she had a little more garlic in her dinner which does usually cause her to have heartburn/indigestion, but other than that she has not had any dietary changes. The patient took 4 Gas X pills, which helped her burp and did relieve some of her symptoms, but the burping has since stopped and she still has pain/pressure. She reports that she vomited prior to arrival in an attempt to relieve some of the pressure in her stomach and chest. She complains of diaphoresis, and currently denies shortness of breath. She denies recent changes in bowel movements, recent fever or cold, and history of heart problems. She notes that her father was a smoker and suffered from emphysema and stroke. Her mother from a heart attack. She notes that she has had an echo done before and did have a slight murmur, but other than that nothing is out of the ordinary. Patient does not routinely follow with cardiology. Home Medications Home Medications Medication Instructions Recorded Confirmed Type adalimumab [Humira Pen] 0 mg SUBCUT .COMPLEX 02/05/19 02/05/19 History denosumab [Prolia] 0 mg SUBCUT USEASDIRECTD 02/05/19 02/05/19 History gabapentin 600 mg PO TID 02/05/19 02/05/19 History nabumetone 500 mg PO BID 02/05/19 02/05/19 History Allergies Allergy/AdvReac Type Severity Reaction Status Date / Time chlorhexidine Allergy Intermediate REDNESS/ITC Verified 02/05/19 02:55 ARBEN adhesive Allergy Unknown ALLERGIC Verified 02/05/19 02:55 TO TAPE, HOWEVER PAPER TAPE IS OK VICRYL Allergy Unknown "SUTURES Uncoded 02/05/19 02:55 DON'T DISSOLVE" Past Med/Surg History Medical History 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 and A total of 10 systems reviewed and were otherwise negative Physical Exam Vital Signs Vital Signs - 24 hr 02/05/19 02:22 02/05/19 02:48 02/05/19 03:10 Temperature 36.3 C L Temperature Source Oral Pulse Rate 81 Pulse Rate [Bilateral Apical] 84 92 H Respiratory Rate 18 20 20 Respiratory Effort / Characteristics Non-Labored Spontaneous Respiratory Depth Normal Blood Pressure [Right Arm] 118/70 148/90 H Blood Pressure Mean [Right Arm] 86 109 Pulse Oximetry 99 96 97 Oxygen Delivery Method Room Air Room Air Room Air Sepsis Recent Fever Within 48 Hours No Sepsis Action Taken by Nursing No Action Required GENERAL: alert, well appearing, well nourished, no distress, non-toxic EYE EXAM: normal conjunctiva, PERRL and EOM's grossly intact OROPHARYNX: no exudate, no erythema, lips, buccal mucosa, and tongue normal. Dry mucous membranes. NECK: supple, no nuchal rigidity, no adenopathy, non-tender LUNGS: Clear to auscultation. Normal chest wall mechanics, no w/r/r CHEST: No reproducible chest wall tenderness. HEART: no murmurs, S1 normal and S2 normal ABDOMEN: abdomen soft, non-tender, normo-active bowel sounds, no masses, no rebound or guarding. BACK: Back is symmetrical on inspection and there is no deformity, no midline tenderness, no CVA tenderness. SKIN: no rashes and no bruising UPPER EXTREMITIES: chronic changes noted to hands and wrist inconsistent with RA. FROM, nml pulses b/l. LOWER EXTREMITIES: No pitting edema. FROM, nml pulses b/l. NEURO EXAM: Normal sensorium, cranial nerves II-XII grossly intact, normal speech, no gross weakness of arms, no gross weakness of legs. Course Course 0230: The patient was evaluated in room A10. A complete history and physical exam was performed. 0245: Repeat EKG on the patient was found to be concerning, and a heart alert was announced overhead. 0259: I rechecked on the patient and updated her. I discussed the case with Dr. Ruth, [facility] hospitalist, who agreed to take over care of the patient. She is agreeable and will be further evaluated. 0312: Dr. Wall is at bedside evaluating the patient. Administered Medications Sodium Chloride (Nss) 500 mls @ 125 mls/hr IV .Q4H EL Stop: 03/07/19 02:44 Last Infusion: 02/05/19 06:10 Dose: 0 mls/hr Documented by: [id number] Admin: 02/05/19 05:23 Dose: Not Given Documented by: [id number] Admin: 02/05/19 03:07 Dose: 125 mls/hr Documented by: [id number] Potassium Chloride/Sodium Chloride (Normal Saline W/20 Meq Kcl) 20 meq in 1,000 mls @ 100 mls/hr IV .Q10H EL Stop: 02/05/19 09:44 Last Admin: 02/05/19 05:27 Dose: 100 mls/hr Documented by: [id number] Lisinopril (Zestril) 5 mg PO QAM EL Stop: 03/07/19 04:44 Last Admin: 02/05/19 05:27 Dose: 5 mg Documented by: [id number] Discontinued Medications Al Hydrox/Mg Hydrox/Simethicone (Maalox) 30 ml PO NOW STA Stop: 02/05/19 02:44 Last Admin: 02/05/19 02:55 Dose: 30 ml Documented by: [id number] Aspirin (Aspirin) 324 mg PO NOW STA Stop: 02/05/19 02:51 Last Admin: 02/05/19 02:55 Dose: 324 mg Documented by: [id number] Atropine Sulfate (Atropine Sulfate) Confirm Administered Dose 1 mg IV .STK-MED ONE Stop: 02/05/19 04:02 Last Admin: 02/05/19 04:55 Dose: 1 mg Documented by: [id number] Dopamine HCl/Dextrose (Dopamine / D5w (Beater Engineer Helper Use Only)) Confirm Administered Dose 400 mg .ROUTE .STK-MED ONE Stop: 02/05/19 04:03 Last Admin: 02/05/19 04:55 Dose: Not Given Documented by: [id number] Famotidine (Pepcid 20mg Iv Push) 20 mg IV ONE STA Stop: 02/05/19 02:44 Last Admin: 02/05/19 02:55 Dose: 20 mg Documented by: [id number] Fentanyl Citrate (Fentanyl Citrate) 25 mcg IV NOW STA Stop: 02/05/19 02:51 Last Admin: 02/05/19 02:55 Dose: 25 mcg Documented by: [id number] Fentanyl Citrate (Fentanyl Citrate) Confirm Administered Dose 100 mcg .ROUTE .STK-MED ONE Stop: 02/05/19 03:08 Last Increment: 02/05/19 04:54 Dose: 75 mcg Documented by: [id number] Heparin Sodium (Porcine) (Heparin Iv Bolus (Beater Engineer Helper Use Only)) Confirm Administered Dose 10,000 units .ROUTE .STK-MED ONE Stop: 02/05/19 03:08 Last Admin: 02/05/19 04:54 Dose: 8,000 units Documented by: [id number] Heparin Sodium/Sodium Chloride (Heparin/Nss 1000 Unit/500ml Flush Bag) Confirm A dministered Dose 3,000 units IV .STK-MED ONE Stop: 02/05/19 03:09 Last Admin: 02/05/19 04:54 Dose: 3,000 units Documented by: [id number] Midazolam HCl (Versed) Confirm Administered Dose 2 mg .ROUTE .STK-MED ONE Stop: 02/05/19 03:09 Last Admin: 02/05/19 04:55 Dose: 2 mg Documented by: [id number] Midazolam HCl (Versed) Confirm Administered Dose 2 mg .ROUTE .STK-MED ONE Stop: 02/05/19 04:09 Last Increment: 02/05/19 04:55 Dose: 1 mg Documented by: [id number] Nicardipine HCl (Cardene) Confirm Administered Dose 25 mg .ROUTE .STK-MED ONE Stop: 02/05/19 03:08 Last Admin: 02/05/19 04:54 Dose: 25 mg Documented by: [id number] Nitroglycerin/Dextrose (Nitroglycerin/D5w 100 Mcg/Ml 20ml Syringe) Confirm Administered Dose 2,000 mcg .ROUTE .STK-MED ONE Stop: 02/05/19 03:09 Last Admin: 02/05/19 04:54 Dose: 2,000 mcg Documented by: [id number] Ticagrelor (Brilinta) Confirm Administered Dose 180 mg PO .STK-MED ONE Stop: 02/05/19 04:29 Last Admin: 02/05/19 04:55 Dose: 180 mg Documented by: [id number] Medical Decision Making Differential Diagnosis Differential diagnosis includes: cardiac ischemia, aortic dissection, pulmonary embolism, pneumonia, pneumothorax, musculoskeletal, infections, pericarditis, myocarditis, esophageal rupture, gastrointestinal, as well as others were entertained. Medical Records Attestation: I reviewed the patient's medical records. Home Medications Current Medication List: was personally reviewed by me Laboratory Data Attestation: I reviewed the patient's lab results. Result diagrams: 02/05/19 02:44 02/05/19 02:44 Lab Results 02/05/19 02/05/19 02/05/19 Range/Units 02:44 02:44 02:44 WBC 12.79 H (4.8-10.8) K/uL RBC 4.64 (4.2-5.4) M/uL Hgb 15.1 (12.0-16.0) g/dL Hct 43.2 (37-47) % MCV 93.1 (80-100) fL MCH 32.5 (25-34) pg MCHC 35.0 (32-36) g/dL RDW Std Deviation 44.8 (36.4-46.3) fL RDW Coeff of Jo 13.2 (11.5-14.5) % Plt Count 286 (130-400) K/uL MPV 8.4 (7.4-10.4) fL Immature Gran % (Auto) 0.2 % Neut % (Auto) 61.3 % Lymph % (Auto) 28.9 % [place] % (Auto) 7.5 % Eos % (Auto) 1.7 % Baso % (Auto) 0.4 % Immature Gran # (Auto) 0.02 (0.00-0.02) K/uL Neut # (Auto) 7.84 H (1.4-6.5) K/uL Lymph # (Auto) 3.70 H (1.2-3.4) K/uL [place] # (Auto) 0.96 H (0.11-0.59) K/uL Eos # (Auto) 0.22 (0-0.5) K/uL Baso # (Auto) 0.05 (0-0.2) K/uL D-Dimer 2060 H* (0-500) ug/L FEU Sodium 135 L (136-145) mmol/L Potassium 3.2 L (3.5-5.1) mmol/L Chloride 101 (98-107) mmol/L Carbon Dioxide 25 (21-32) mmol/L Anion Gap 9.0 (3-11) BUN 14 (7-18) mg/dl Creatinine 0.77 (0.6-1.2) mg/dl Est Cr Clr Drug Dosing 57.9 ml/min Est GFR ( Amer) 96.6 Est GFR (Non-Af Amer) 83.3 BUN/Creatinine Ratio 18.3 (10-20) Glucose 145 H (70-99) mg/dl Calcium 9.4 (8.5-10.1) mg/dl Total Bilirubin 0.4 (0.2-1) mg/dl AST 21 (15-37) U/L ALT 26 (12-78) U/L Alkaline Phosphatase 153 H (45-117) U/L Troponin I 0.080 H* (0-0.045) ng/ml NT-Pro-B Natriuret Pep 269 (0-900) pg/ml Total Protein 9.0 H (6.4-8.2) gm/dl Albumin 4.3 (3.4-5.0) gm/dl Globulin 4.7 H (2.5-4.0) gm/dl Albumin/Globulin Ratio 0.9 (0.9-2) Triglycerides (0-150) mg/dl Cholesterol (0-200) mg/dl LDL Cholesterol, Calc mg/dl VLDL Cholesterol, Calc mg/dl HDL Cholesterol mg/dl Cholesterol/HDL Ratio Lipase 84 (73-393) U/L Ethyl Alcohol mg/dL (0-3) mg/dl 02/05/19 02/05/19 Range/Units 02:44 02:57 WBC (4.8-10.8) K/uL RBC (4.2-5.4) M/uL Hgb (12.0-16.0) g/dL Hct (37-47) % MCV (80-100) fL MCH (25-34) pg MCHC (32-36) g/dL RDW Std Deviation (36.4-46.3) fL RDW Coeff of Jo (11.5-14.5) % Plt Count (130-400) K/uL MPV (7.4-10.4) fL Immature Gran % (Auto) % Neut % (Auto) % Lymph % (Auto) % [place] % (Auto) % Eos % (Auto) % Baso % (Auto) % Immature Gran # (Auto) (0.00-0.02) K/uL Neut # (Auto) (1.4-6.5) K/uL Lymph # (Auto) (1.2-3.4) K/uL [place] # (Auto) (0.11-0.59) K/uL Eos # (Auto) (0-0.5) K/uL Baso # (Auto) (0-0.2) K/uL D-Dimer (0-500) ug/L FEU Sodium (136-145) mmol/L Potassium (3.5-5.1) mmol/L Chloride (98-107) mmol/L Carbon Dioxide (21-32) mmol/L Anion Gap (3-11) BUN (7-18) mg/dl Creatinine (0.6-1.2) mg/dl Est Cr Clr Drug Dosing ml/min Est GFR ( Amer) Est GFR (Non-Af Amer) BUN/Creatinine Ratio (10-20) Glucose (70-99) mg/dl Calcium (8.5-10.1) mg/dl Total Bilirubin (0.2-1) mg/dl AST (15-37) U/L ALT (12-78) U/L Alkaline Phosphatase (45-117) U/L Troponin I (0-0.045) ng/ml NT-Pro-B Natriuret Pep (0-900) pg/ml Total Protein (6.4-8.2) gm/dl Albumin (3.4-5.0) gm/dl Globulin (2.5-4.0) gm/dl Albumin/Globulin Ratio (0.9-2) Triglycerides 152 H (0-150) mg/dl Cholesterol 320 H (0-200) mg/dl LDL Cholesterol, Calc 223 mg/dl VLDL Cholesterol, Calc 30 mg/dl HDL Cholesterol 67 mg/dl Cholesterol/HDL Ratio 5 Lipase (73-393) U/L Ethyl Alcohol mg/dL < 3.0 (0-3) mg/dl Imaging Data Attestation: I personally reviewed and interpreted this imaging study as follows: My Impression: 1V CHEST X-ray - read by me No cardiomegaly. No effusions. No wide mediastinum. No focal consolidation. Chronic deformity noted to left shoulder. Hardware noted at right shoulder. read at 03:15 on 02/05/19 ECG Data Attestation: I personally reviewed and interpreted this ECG as follows: Indication: + palpitations Rate (beats per minute): 80 Rhythm: + sinus rhythm ECG Intervals/blocks: + Normal QRS and + Normal QT ECG [place]: + Normal ECG ST segments: + ST depression (in lead 1 and AVL) and + ST elevation (in leads 3, AVF, V3-V6 ) Blood Pressure Blood Pressure Findings: Elevated blood pressure Blood Pressure Disposition: further management by hospitalist REAL Narrative Patient here initially well-appearing and in no acute distress. Initial EKG had baseline artifact, and I finished my interview with the patient and asked staff to get a repeat to better clarify possible changes I was seeing. An IV had been established, labs drawn, and orders placed prior to the second EKG. Second EKG very clearly showed an ST elevation [place] with reciprocal changes. A heart alert was called immediately. Patient was given aspirin. Patient was also given fentanyl which she stated took her pain from a 4 out of 10 down to a 1 out of 10. This was done to help preserve her blood pressure without any significant drop. Nitro was avoided due to concern for a right sided infarct. Patient was made aware of all results and was in agreement with plan. Dr. Wall, interventional cardiology came to bedside to evaluate the patient and she was promptly taken for cardiac catheterization. Patient remained hemodynamically stable while in the emergency room. Chest x-ray was reviewed prior to evaluation by cardiology and was not concerning for acute dissection or pulmonary edema. Impression & Plan ST elevation (STEMI) myocardial infarction, Chest pain Discharge Plan Visit Data *Final* Discharge Date/Time: 02/05/19 03:27 Chief Complaint: Arrhythmia/Palpitations Stated Complaint: GAS PAIN,SHOULDER ARM PAIN,PAL ED Provider: Helena Truong Discharge Problem: ST elevation (STEMI) myocardial infarction, Chest pain Patient Disposition: Admitted As Inpatient Discharge Instructions Interventions: ED Discharge Assessment Last Done: 02/05/19 03:27 Discharge Problem: ST elevation (STEMI) myocardial infarction Qualifiers: Involved coronary artery: unspecified coronary artery Qualified Code(s): I21.3 - ST elevation (STEMI) myocardial infarction of unspecified site Chest pain Qualifiers: Chest pain type: unspecified Qualified Code(s): R07.9 - Chest pain, unspecified The scribe's documentation has been prepared under my direction and personally reviewed by me in its entirety. I confirm that the note above accurately reflects all work, treatment, procedures, and medical decision making performed by me.
--- NOTE | 2019-02-05 06:40 | XRay Report ---
XR chest 1V portable CLINICAL HISTORY: chest pain dyspnea COMPARISON STUDY: 07/15/2013 FINDINGS: Mild bronchovascular prominence both lung bases. Prior total right shoulder arthroplasty. S evere degenerative change left shoulder. IMPRESSION: Bilateral bronchovascular prominence. The above report was generated using voice recognition software. It may contain grammatical, syntax or spelling errors. Electronically signed by: Iban Tafoya M.D. 02/05/2019 6:39 AM
[2019-02-05 07:19] LABS: Estimated Average Glucose 108 mg/dl; Hemoglobin A1C 5.4 % (4.5-5.6)
[2019-02-05] MEDS ORDERED: ICU ELECTROLYTE REPLACEMENT PROTOCOL PRN (07:46)
[2019-02-05] MEDS: ASPIRIN 81 MG ECTAB PO SCH (08:16)
[2019-02-05] MEDS: GABAPENTIN 600 MG TAB PO SCH ×3 (08:16→21:07)
[2019-02-05] MEDS: ATORVASTATIN 40 MG TAB PO SCH ×2 (08:17→14:13)
[2019-02-05] MEDS: METOPROLOL TARTRATE 25 MG TAB PO SCH ×2 (08:17→21:07)
[2019-02-05] MEDS ORDERED: POTASSIUM CHLORIDE 20 MEQ TABCR PO SCH (08:40)
[2019-02-05] MEDS: POTASSIUM CHLORIDE 20 MEQ TABCR PO SCH ×3 (08:58→17:41)
--- NOTE | 2019-02-05 09:20 | History and Physical Report ---
DATE OF ADMISSION: 02/05/2019 CHIEF COMPLAINT: Chest pain, ST elevated FL. HISTORY OF PRESENT ILLNESS: This is a 63-year-old female with past medical history significant for rheumatoid arthritis, history of cervical disk disease, osteoporosis, osteoarthritis, iron deficiency anemia,presented with indigestion, chest discomfort and found to have inferior ST elevated [place]. The patient states after supper, she noticed indigestion and discomfort in the diaphragm region and epigastric region, severe in nature, radiating to the chest. Also there is some nausea and sweating. It was not getting better and she decided to come to the hospital. In the ER, she was found to have ST elevated [place] in inferior leads. Heart alert was called. She is s/p emergent cardiac cath and found to have occluded mid RCA,and , status post two drug-eluting stents and she also found to have 80% mid circumflex disease and also 60%-70% mid LAD. Currently, after the procedure, the patient is chest pain free and she is feeling fine, asymptomatic and hemodynamically stable. Denies any headaches, no blurred vision, no earache, no runny nose, no sore throat. She has some cough though she is just having it at night times. Appetite is okay. No difficulty swallowing. She felt some shortness of breath when she had severe pain, but currently she is doing okay. Currently no nausea, no abdominal pain. Normal bowel and bladder movements. No hematuria or burning micturition. No blood in the stools or black stools. No swelling in the legs. No rash. Otherwise, she is active. She ambulates okay. ALLERGIES: TO CHLORHEXIDINE, ADHESIVES, VICRYL. PAST MEDICAL HISTORY: As mentioned above. PAST SURGICAL HISTORY: Bilateral knee arthroplasty, , colonoscopy, cervical spinal fusion surgery, right shoulder joint reconstruction surgery, tonsillectomy and adenoidectomy, small bowel endoscopy with biopsy, total abdominal hysterectomy with removal of tubes, left total hip replacement, total hysterectomy. MEDICATIONS: The patient is on ketorolac tromethamine instill 1 drop in both eyes 2 times a day for 14 days, nabumetone 500 mg p.o. b.i.d., gabapentin 600 mg p.o. t.i.d., tramadol 50 mg p.o. q. 8 hours p.r.n., Humira every 14 days, Zofran 4 mg q. 6 hours p.r.n., calcium 600 mg p.o. b.i.d., Prolia subcutaneous. FAMILY HISTORY: Significant for mother had diabetes, of heart attack. Father had lung disorder. Maternal aunt has cancer. SOCIAL HISTORY: , lives with her . No smoking, no alcohol, no drug use. REVIEW OF SYMPTOMS: As per HPI. Rest of the symptoms negative. PHYSICAL EXAMINATION: GENERAL: The patient is of moderate build, not in acute distress. VITAL SIGNS: Temperature 36.3, pulse 94, respiratory rate 20, blood pressure 102/79, oxygen 95% room air. HEENT: No pallor, no icterus. Pupils equal, round, reactive to light. NECK: No JVD, no neck masses, no carotid bruit. CARDIOVASCULAR: S1, S2 heard. Regular rate and rhythm. No murmur, no gallop. RESPIRATORY SYSTEM: Normal AP diameter. No accessory muscle use. No wheezing, no crackles. ABDOMEN: Soft, bowel sounds present, nontender. No distention. CENTRAL NERVOUS SYSTEM: Cranial nerves II-XII grossly intact. Nonfocal. EXTREMITIES: Right wrist cardiac cath site clean and no drainage seen. Lower extremity has no edema, no erythema seen. LABORATORIES DATA: WBC 12.7, hemoglobin 15.1, hematocrit 43.2, platelets 286. D-dimer 2060. Sodium 135, potassium 3.2, chloride 101, bicarb 25, BUN 14, creatinine 0.7, serum glucose 145, calcium 9.4, total bilirubin 0.4, AST 21, ALT 26, alkaline phosphatase 153. Troponin 0.08, lipase 84. Ethyl alcohol less than 3. Chest x-ray: No acute findings. EKG: Normal sinus rhythm, rate of 81, ST elevation in the inferior leads. ASSESSMENT AND PLAN: This is a 63-year-old female who presents with indigestion and chest discomfort and found to have acute ST elevation myocardial infarction in inferior leads. 1. Acute ST elevation myocardial infarction in inferior leads: Heart alert was called and the patient is status post emergent cardiac cath, found to have 100% occlusion of mid RCA, status post two drug-eluting stents. She also has 80% circumflex disease and 60%-70% mid LAD. Plan for stenting of circumflex during this hospitalization as per Cardiology. The patient was loaded with Brilinta. Currently started on aspirin, statin, lisinopril, Lopressor and Brilinta by Cardiology.Post cardiac cath, management as per Cardiology. Follow up echocardiogram, follow up of troponin. Currently chest pain free. 2. History of rheumatoid arthritis: On gabapentin, on Humira. 3. History of osteoarthritis: On nabumetone which we will hold In the setting of acute FL, maybe need to stop the medication. 4. Deep venous thrombosis prophylaxis. SCDs. DISPOSITION: Monitor in ICU. Level 1 full code. MTDD
--- NOTE | 2019-02-05 12:32 | Cardiology Consultation ---
Date of Consultation February 05, 2019 Assessment & Plan (1) ST elevation (STEMI) myocardial infarction: Patient's repeat troponin I level has trended up to 66ng/ml , not surprising given cardiac catheterization findings. Continue to trend troponin at a every 6 hours basis. EKG findings are favorable. She does not have recurrent ST elevation on most recent EKG. Likely has some mild residual angina from peripheral embolic phenomenon complex PCI of thrombotic occlusion of the mid RCA. He does have residual disease as noted. Interventional cardiology note describes plan for staged PCI to the circumflex, perhaps 2 days. Continue aspirin, clopidogrel, low-dose metoprolol. Blood pressure is little bit on the low side, but I think this just reflects her chronic low blood pressure. Potassium has been supplemented. Continue lisinopril. Echocardiogram report by Dr Begum describes LVEF in the range of 50%. Heart failure images independently for purpose of continuity of care. Patient had previously declined to take her atorvastatin due to concerns of potential toxicity. I had a long discussion with her about the rationale for this medication and she is agreeable to starting it. (2) Dyslipidemia: Total cholesterol 320, LDL cholesterol 223. HDL cholesterol 67. Rationale statin therapy discussed with patient. She is agreeable. (3) Rheumatoid arthritis: Nabumetone on hold for now given acute OH. History of Present Illness Attending Physician: Carlos Poole MD History of Present Illness Laisha Galvez is a 63 year old female seen in general cardiology consultation per the request of Dr Poole in follow up of the patinet's presentation with an inferior STEMI. The patient's primary care provider is Dr Veloz. She follows with [facility] as an outpatient and has not followed with cardiology previously. The patient states that she was in her normal state of health until approximately 830 last night. She started having symptoms that she describes as being a gas attack, that progressed to chest discomfort. She ultimately had her bring her to the emergency department and initial EKG having been performed on 02/05/2019 at 2:43 AM revealed normal sinus rhythm at [address] segment elevation in the inferior leads III and aVF with reciprocal ST segment depression in the high lateral leads I and aVL. The "Heart Alert" protocol was activated and the patient underwent emergent cardiac catheterization by Dr. Wall of interventional cardiology feeling multivessel coronary heart disease including culprit acute thrombotic occlusion of the mid right coronary artery, 60 to 70% stenosis of the LAD at its midportion and 60% late mid diffuse LAD disease, 2 small diagonals with moderate diffuse disease. The left circumflex was a medium caliber vessel with an 80% mid stenosis 40% late mid stenosis, 50% distal stenosis at the takeoff of OM 2. 50-60% left PLB branch. Cardiac catheterization took place via the right radial artery approach. Post procedure the patient was transferred to intensive care unit room 103 where she was seen by the undersigned. At that time, the patient did have 3/10 intensity residual chest discomfort, that she overall states is much improved compared to her presenting symptoms. She was comfortable. She notes her typical arthritis pain in her joints and neck, but she states this is bearable. Serial EKG findings as noted below. Allergies Allergy/AdvReac Type Severity Reaction Status Date / Time chlorhexidine Allergy Intermediate REDNESS/ITC Verified 02/05/19 02:55 ARBEN adhesive Allergy Unknown ALLERGIC Verified 02/05/19 02:55 TO TAPE, HOWEVER PAPER TAPE IS OK VICRYL Allergy Unknown "SUTURES Uncoded 02/05/19 02:55 DON'T DISSOLVE" Home Medications Home Medications Medication Instructions Recorded Confirmed Type adalimumab [Humira Pen] 0 mg SUBCUT .COMPLEX 02/05/19 02/05/19 History denosumab [Prolia] 0 mg SUBCUT USEASDIRECTD 02/05/19 02/05/19 History gabapentin 600 mg PO TID 02/05/19 02/05/19 History nabumetone 500 mg PO BID 02/05/19 02/05/19 History Patient History Medical History Aseptic loosening of prosthetic knee (Resolved 07/19/13) Cervical stenosis of spinal canal (Chronic 04/11/14) Osteoporosis (Chronic) Rheumatoid arthritis (Chronic) Surgical History No pertinent past surgical history Social History Communication Ability: Effective Beliefs That Will Affect Care: None marital status: Current Living Situation: Spouse Other Information That Helps Us Care for You: No Feels Safe at Home: Yes Safety Concerns: Feels Safe At This Time Smoking Status: Never smoker Hx Alcohol Use: No Hx Substance Use: No Review of Systems Review of Systems: All systems reviewed & are unremarkable except as noted in HPI & below Physical Exam Physical Exam: Temp Pulse Resp BP Pulse Ox 36.4 C L 79 22 98/68 L 97 02/05/19 07:30 02/05/19 11:00 02/05/19 11:00 02/05/19 11:00 02/05/19 11:00 Constitutional: WD/WN, vitals as above Respiratory: normal respiratory effort, lungs clear to auscultation Cardiovascular: RRR, no murmur, no edema Vessels: no JVD Extremities: no edema Right radial access point with mild ecchymosis, no hematoma, hand warm no stigmata of peripheral embolic phenomenon. Gastrointestinal (Abdomen): normal bowel sounds, soft, nontender, no hepatosplenomegaly Skin: no rashes, warm and dry Neurologic: PERRL, EOMI, accommodation nl, no face palsy, no dysarthria Results & Data Vital Signs (Past 12 Hours) Vital Signs Temp Pulse Pulse Resp BP BP BP 02/05/19 11:00 79 22 98/68 L 02/05/19 10:00 83 21 100/62 02/05/19 09:00 87 16 98/75 L 02/05/19 08:00 88 15 118/72 02/05/19 07:30 36.4 C L 92 H 20 115/72 02/05/19 06:26 90 18 118/82 02/05/19 05:56 36.2 C L 86 20 130/80 02/05/19 05:45 88 20 112/80 02/05/19 05:30 92 H 18 110/60 02/05/19 05:15 94 H 20 102/79 02/05/19 05:00 94 H 20 101/80 02/05/19 03:10 92 H 20 148/90 H 02/05/19 02:48 84 20 118/70 02/05/19 02:22 36.3 C L 81 18 Pulse Ox 02/05/19 11:00 97 02/05/19 10:00 96 02/05/19 09:00 95 02/05/19 08:00 96 02/05/19 07:30 96 02/05/19 06:26 96 02/05/19 05:56 96 02/05/19 05:45 97 02/05/19 05:30 98 02/05/19 05:15 95 02/05/19 05:00 95 02/05/19 03:10 97 02/05/19 02:48 96 02/05/19 02:22 99 Laboratory Results Cardiac Enzymes 02/05/19 02/05/19 Range/Units 02:44 10:43 AST 21 (15-37) U/L Troponin I 0.080 H* 66.000 H* (0-0.045) ng/ml Lipids 02/05/19 Range/Units 02:44 Triglycerides 152 H (0-150) mg/dl Cholesterol 320 H (0-200) mg/dl HDL Cholesterol 67 mg/dl Cholesterol/HDL Ratio 5 CBC 02/05/19 Range/Units 02:44 WBC 12.79 H (4.8-10.8) K/uL RBC 4.64 (4.2-5.4) M/uL Hgb 15.1 (12.0-16.0) g/dL Hct 43.2 (37-47) % Plt Count 286 (130-400) K/uL Neut # (Auto) 7.84 H (1.4-6.5) K/uL Lymph # (Auto) 3.70 H (1.2-3.4) K/uL [place] # (Auto) 0.96 H (0.11-0.59) K/uL Eos # (Auto) 0.22 (0-0.5) K/uL Baso # (Auto) 0.05 (0-0.2) K/uL Comprehensive Metabolic Panel 02/05/19 Range/Units 02:44 Sodium 135 L (136-145) mmol/L Potassium 3.2 L (3.5-5.1) mmol/L Chloride 101 (98-107) mmol/L Carbon Dioxide 25 (21-32) mmol/L BUN 14 (7-18) mg/dl Creatinine 0.77 (0.6-1.2) mg/dl Glucose 145 H (70-99) mg/dl Calcium 9.4 (8.5-10.1) mg/dl AST 21 (15-37) U/L ALT 26 (12-78) U/L Alkaline Phosphatase 153 H (45-117) U/L Total Protein 9.0 H (6.4-8.2) gm/dl Albumin 4.3 (3.4-5.0) gm/dl Intake and Output 02/04/19 02/05/19 02/05/19 22:59 06:59 14:59 Intake Total 500 / 500 300 / 300 Output Total 400 / 400 400 / 400 Balance 100 / 100 -100 / -100 Intake: IV 500 / 500 Nss 500 ml @ 125 mls/hr IV .Q4H 500 / 500 [facility] Rx#:[id number] Oral 300 / 300 Output: Urine 400 / 400 400 / 400 Other: Weight 53.9 kg Diagnostic Findings Post PCI EKG performed at 4:55 AM revealed sinus rhythm at 99 bpm, mild residual ST elevation noted limited to lead III, with new deep T wave inversions in lead III and aVF consistent with evolution of inferior OH. Repeat EKG 10:40 AM revealed evolution of inferior OH with inferior T wave inversions resolution of ST elevation. Medications Administered Current Inpatient Medications Aspirin (Ecotrin Ectab) 81 mg PO QAM [facility] Stop: 03/07/19 08:59 Last Admin: 02/05/19 08:16 Dose: 81 mg Documented by: Atorvastatin Calcium (Lipitor) 40 mg PO QAM [facility] Stop: 03/07/19 08:59 Last Admin: 02/05/19 08:17 Dose: Not Given Documented by: Gabapentin (Neurontin) 600 mg PO TID [facility] Stop: 03/07/19 08:59 Last Admin: 02/05/19 08:16 Dose: 600 mg Documented by: Sodium Chloride (Nss) 500 mls @ 125 mls/hr IV .Q4H [facility] Stop: 03/07/19 02:44 Last Admin: 02/05/19 11:27 Dose: Not Given Documented by: Lisinopril (Zestril) 5 mg PO QAM [facility] Stop: 03/07/19 04:44 Last Admin: 02/05/19 05:27 Dose: 5 mg Documented by: Metoprolol Tartrate (Lopressor) 25 mg PO BID [facility] Stop: 03/07/19 08:59 Last Admin: 02/05/19 08:17 Dose: 25 mg Documented by: Miscellaneous ([facility] Protocol For Hyperglycemia) 1 ea N/A PRN PRN; Protocol PRN Reason: Hyperglycemia Protocol Stop: 02/07/19 04:36 Miscellaneous ([facility] Electrolyte Replacement Protocol) 1 ea N/A UD PRN PRN Reason: for e-lyte repletion Stop: 02/12/19 07:45 Ondansetron HCl (Zofran) 4 mg IV Q6H PRN PRN Reason: Nausea And Vomiting Stop: 03/07/19 04:41 Last Admin: 02/05/19 07:19 Dose: 4 mg Documented by: Potassium Chloride (Klor-Con M20) 20 meq PO Q4H [facility] Stop: 02/05/19 17:01 Last Admin: 02/05/19 08:58 Dose: 20 meq Documented by: Ticagrelor (Brilinta) 90 mg PO BID [facility] Stop: 03/07/19 20:59 (1) ST elevation (STEMI) myocardial infarction Involved coronary artery: unspecified coronary artery Qualified Code(s): I21.3 - ST elevation (STEMI) myocardial infarction of unspecified site
--- NOTE | 2019-02-05 14:20 | Hospitalist Progress Note ---
Date of Service February 05, 2019 Assessment & Plan (1) ST elevation (STEMI) myocardial infarction: This is a 63-year-old female who presents with indigestion and chest discomfort and found to have acute ST elevation myocardial infarction in inferior leads. -cardiac cath summary 02/05/19 1. Acute 100% mid RCA occlusion 2. Severe multi--vessel non-culprit coronary artery disease; 80% mid circumflex; 60 to 70% mid LAD 3. Normal intracardiac filling pressure 4. Transient bradycardia/hypotension with reperfusion which responded to atropine/IV fluids. 5. Successful PCI of mid RCA occlusion with 2 overlapping drug-eluting stents (4.0 x 8, 3.5 x 28 Xience Palmira). -post cardiac cath troponin level of 66, no chest pain, elevated troponins expected after carduac cath, trend troponins as per cardiology service -Echocardiogram report by Dr Begum describes LVEF in the range of 50% -patient remains being monitored in the the Intensive Care Unit -continue aspirin, Brillinta, metoprolol, atorvastatin, lisinopril Dyslipidemia: -Total cholesterol 320, LDL cholesterol 223. HDL cholesterol 67. -started on statin on this hospital stay Osteoarthritis Rheumatoid arthritis: -hold Nabumetone, hold humira DVT prophylaxis: SCDs Subjective Patient being monitored in the intensive care unit. No chest pain. currently breathing on room air. answers questions appropriately. denies nausea. Review of Systems Review of Systems: All systems reviewed & are unremarkable except as noted in HPI & below Physical Exam Constitutional: comfortable Eyes: PERRL, conjunctivae normal, anicteric sclerae EOM intact bilaterally ENMT: external ear and nose normal, oropharynx normal Neck: normal visual inspection Respiratory: normal respiratory effort, lungs clear to auscultation Cardiovascular: Rate/Rhythm: regular rate Gastrointestinal (Abdomen): normal bowel sounds, soft, nontender, no hepatosplenomegaly Musculoskeletal: Head/Neck/Chest: normocephalic and head atraumatic Neurologic: PERRL, EOMI, accommodation nl, no face palsy, no dysarthria CN's II-XI intact bilaterally Psychiatric: A+Ox3, euthymic affect Results & Data Vital Signs (Past 12 Hours) Vital Signs Temp Pulse Pulse Resp BP BP BP 02/05/19 14:00 77 28 H 99/68 L 02/05/19 13:00 78 18 105/64 02/05/19 12:00 36.7 C 82 13 107/64 02/05/19 11:00 79 22 98/68 L 02/05/19 10:00 83 21 100/62 02/05/19 09:00 87 16 98/75 L 02/05/19 08:00 88 15 118/72 02/05/19 07:30 36.4 C L 92 H 20 115/72 02/05/19 06:26 90 18 118/82 02/05/19 05:56 36.2 C L 86 20 130/80 02/05/19 05:45 88 20 112/80 02/05/19 05:30 92 H 18 110/60 02/05/19 05:15 94 H 20 102/79 02/05/19 05:00 94 H 20 101/80 02/05/19 03:10 92 H 20 148/90 H 02/05/19 02:48 84 20 118/70 02/05/19 02:22 36.3 C L 81 18 Pulse Ox 02/05/19 14:00 95 02/05/19 13:00 96 02/05/19 12:00 97 02/05/19 11:00 97 02/05/19 10:00 96 02/05/19 09:00 95 02/05/19 08:00 96 02/05/19 07:30 96 02/05/19 06:26 96 02/05/19 05:56 96 02/05/19 05:45 97 02/05/19 05:30 98 02/05/19 05:15 95 02/05/19 05:00 95 02/05/19 03:10 97 02/05/19 02:48 96 02/05/19 02:22 99 (1) ST elevation (STEMI) myocardial infarction Involved coronary artery: unspecified coronary artery Qualified Code(s): I21.3 - ST elevation (STEMI) myocardial infarction of unspecified site
[2019-02-05] MEDS: ACETAMINOPHEN 325 MG TAB PO PRN (14:46)
[2019-02-05 17:21] LABS: Albumin Level 3.6 gm/dl (3.4-5.0); BUN Creatinine Ratio 17.1 (10-20); Calcium 9.5 mg/dl (8.5-10.1); Creatinine Clr Calc Pharmacy 77.9 ml/min; Est GFR (Non-African American) 98.4; Potassium 4.4 mmol/L (3.5-5.1)
[2019-02-05 17:47] LABS: Albumin Globulin Ratio 0.9 (0.9-2); Bilirubin,Total 0.5 mg/dl (0.2-1); Total Protein 7.6 gm/dl (6.4-8.2); Troponin I 68.5 ng/ml (0-0.045)
[2019-02-05] MEDS: TICAGRELOR 90 MG TAB PO SCH (21:07)
[2019-02-06] MEDS: ACETAMINOPHEN 325 MG TAB PO PRN ×3 (02:17→11:03)
[2019-02-06 05:01] LABS: Basophils # (auto) 0.02 K/uL (0-0.2); Basophils % (auto) 0.2 %; Eosinophils # (auto) 0.25 K/uL (0-0.5); Eosinophils % (auto) 2.5 %; Hematocrit (blood only) 38.7 % (37-47); Hemoglobin 13.1 g/dL (12.0-16.0); Immature Granulocytes # (auto) 0.01 K/uL (0.00-0.02); Immature Granulocytes % (auto) 0.1 %; Lymphocytes # (auto) 2.46 K/uL (1.2-3.4); Lymphocytes % (auto) 24.2 %; Mean Corpuscular Hemoglobin 31.9 pg (25-34); Mean Corpuscular Hgb Conc 33.9 g/dL (32-36); Mean Corpuscular Volume 94.2 fL (80-100); Mean Platelet Volume 8.6 fL (7.4-10.4); Monocytes # (auto) 1.09 K/uL (0.11-0.59); Monocytes % (auto) 10.7 %; Neutrophils # (auto) 6.32 K/uL (1.4-6.5); Neutrophils % (auto) 62.3 %; Platelet Count 223 K/uL (130-400); RDW Coefficient of Variation 13.5 % (11.5-14.5); RDW Standard Deviation 46.3 fL (36.4-46.3); Red Blood Count 4.11 M/uL (4.2-5.4); White Blood Count 10.15 K/uL (4.8-10.8)
[2019-02-06 05:21] LABS: BUN Creatinine Ratio 21.3 (10-20); Calcium 9.2 mg/dl (8.5-10.1); Creatinine Clr Calc Pharmacy 80.6 ml/min; Est GFR (African American) 115.3; Est GFR (Non-African American) 99.5; Potassium 4.6 mmol/L (3.5-5.1)
[2019-02-06 05:37] LABS: Phosphorus 3.2 mg/dl (2.5-4.9); Troponin I 35.5 ng/ml (0-0.045)
--- NOTE | 2019-02-06 07:25 | Critical Care Progress Note ---
Date of Service February 06, 2019 Assessment & Plan (1) Admitted to intensive care unit: Impression 63-year-old female with severe rheumatoid arthritis admitted with acute coronary syndrome status post cardiac catheterization with stent to the RCA. She has multifocal disease and plan is for staged PCI during this hospitalization. She was loaded on dual antiplatelet therapy after her stent was placed and is being monitored in the ICU. She is pain-free. She has been hemodynamically stable. No events overnight. Remains pain free. Recommendations: 1. ACS: Continue management per cardiology. Continue dual antiplatelet agent. Beta-kayla and TRIPP inhibitor as tolerated. Troponin is peaked and is downtrending. Echo with EF 50 to 55% with concentric LVH and no definitive wall motion abnormality. Hemostasis from cardiac catheterization site confirmed 2. Rheumatoid arthritis: On Humira and Prolia as an outpatient. Continue her Neurontin and nabumetone. 3. Leukocytosis: Now resolved.. 4. Mild hyponatremia and hypokalemia. Electrolyte replacement protocols. Defer work-up of hyponatremia to the hospitalist service when she reaches the floor. 5. Hyperlipidemia: Statin therapy. Patient is stable to transfer out of the intensive care unit. Will sign off when she leaves the ICU. Feel free to contact us with additional pulmonary critical care issues. (2) S/P PTCA (percutaneous transluminal coronary angioplasty): (3) ACS (acute coronary syndrome): Review of Systems Review of Systems: Unchanged from prior Physical Exam Constitutional: comfortable Eyes: PERRL, conjunctivae normal, anicteric sclerae EOM intact bilaterally ENMT: external ear and nose normal, oropharynx normal Neck: normal visual inspection Respiratory: normal respiratory effort, lungs clear to auscultation Cardiovascular: Rate/Rhythm: regular rate Gastrointestinal (Abdomen): normal bowel sounds, soft, nontender, no hepatosplenomegaly Musculoskeletal: Head/Neck/Chest: normocephalic and head atraumatic Neurologic: PERRL, EOMI, accommodation nl, no face palsy, no dysarthria CN's II-XI intact bilaterally Psychiatric: A+Ox3, euthymic affect Results & Data Vital Signs (Past 12 Hours) Vital Signs Temp Pulse Pulse Resp BP Pulse Ox 02/06/19 06:00 68 18 102/70 93 02/06/19 05:00 66 16 95 02/06/19 04:00 36.8 C 63 18 101/63 94 02/06/19 03:00 70 14 94 02/06/19 02:00 68 18 90/60 L 95 02/06/19 01:00 69 20 94 02/06/19 00:34 68 02/06/19 00:00 36.9 C 65 14 100/60 94 02/05/19 23:00 68 20 94 02/05/19 22:00 78 24 110/78 97 02/05/19 21:00 36.5 C 78 18 112/70 96 Laboratory Results 02/06/19 04:39 02/06/19 04:39 Diagnostic Findings No new films Coding Level of Care Code 34228 Subseq Hosp Care Lvl 3 Diagnoses Admitted to intensive care unit Z78.9 S/P PTCA (percutaneous transluminal coronary angioplasty) Z98.61 ACS (acute coronary syndrome) I24.9 Time Spent (min) 35
[2019-02-06] MEDS: LISINOPRIL 5 MG TAB PO SCH (07:40)
[2019-02-06] MEDS: TICAGRELOR 90 MG TAB PO SCH ×2 (07:40→19:30)
[2019-02-06] MEDS: ASPIRIN 81 MG ECTAB PO SCH (07:40)
[2019-02-06] MEDS: METOPROLOL TARTRATE 25 MG TAB PO SCH ×2 (07:41→19:28)
[2019-02-06] MEDS: ATORVASTATIN 40 MG TAB PO SCH (07:41)
--- NOTE | 2019-02-06 10:17 | Cardiology Progress Note ---
Date of Service February 06, 2019 Assessment & Plan (1) ST elevation (STEMI) myocardial infarction: Presented with inferior wall STEMI. Somewhat later presentation, onset of symptoms 8:30 pm on 02/05, first medical contact 2:48 am. Had acute occlusion of the mid RCA. PCI, 2 overlapping Deepa placed. Excellent angiographic results, however RV marginal branch was lost. Delay of presentation and loss of RV marginal branch likely account for the troponin elevation that is trending down. Has residual CX disease (80%) stenosis, and intermediate LAD lesion. Tentative plan is to return for staged PCI of the CX, perhaps tomorrow, 02/07 and will therefor make NPO after MN. Echo images from 02/05 were reviewed independently. The images were technically limited, however there is an inferior wall motion abnormality with hypokinesis of the inferior wall, low normal LVEF 50%. Continue ASA, Tacagrelor, metoprolol, lisinopril. Shortness of breath suggestive of mild volume overload, will order lasix 20 mg IV x 1 now. (2) Dyslipidemia: Significant dyslipidemia. LDL 223. Continue atorvastatin. Was not on statin therapy [employer]. (3) High transaminase levels: AST 334 at 1650 yesterday. Likely due to SD. Continue statin. Repeat LFTs in am 02/07. (4) Rheumatoid arthritis: NSAIDs on hold. May need PPI and cautious prednisone if arthritis worsens. However will try to avoid this if possible. Will need to monitor for CHF symptoms with Humira treatment. Subjective CC: follow up chest pain, epigastric discomfort Subjective: Patient denies chest pain. Has R shoulder pain and feels breathing is worse than her baseline. Review of Systems Review of Systems: All systems reviewed & are unremarkable except as noted in HPI & below Physical Exam Physical Exam: Temp Pulse Resp BP Pulse Ox 37.2 C 77 19 112/72 96 02/06/19 08:37 02/06/19 08:37 02/06/19 08:37 02/06/19 08:37 02/06/19 08:37 Respiratory: normal respiratory effort, lungs clear to auscultation Cardiovascular: RRR, no murmur, no edema Gastrointestinal (Abdomen): normal bowel sounds, soft, nontender, no hepatosplenomegaly Neurologic: PERRL, EOMI, accommodation nl, no face palsy, no dysarthria Results & Data Vital Signs (Past 12 Hours) Vital Signs Temp Pulse Pulse Pulse Resp BP Pulse Ox 02/06/19 08:37 37.2 C 77 19 112/72 96 02/06/19 07:53 36.4 C L 71 21 110/72 94 02/06/19 06:00 68 18 102/70 93 02/06/19 05:00 66 16 95 02/06/19 04:00 36.8 C 63 18 101/63 94 02/06/19 03:00 70 14 94 02/06/19 02:00 68 18 90/60 L 95 02/06/19 01:00 69 20 94 02/06/19 00:34 68 02/06/19 00:00 36.9 C 65 14 100/60 94 02/05/19 23:00 68 20 94 Laboratory Results Troponin I: 0.08, 66, 68.5, 35.5 ng /ml Creatininie 0.58 Diagnostic Findings EKG this am: SR at 69, Deep T wave inversions in leads III and aVF consistent with evolution of inferior SD. ST segment elevation noted on presentation to the ED has resolved. QTc of 499, likely overestimated due to the deep broad T wave inversions. (1) ST elevation (STEMI) myocardial infarction Involved coronary artery: unspecified coronary artery Qualified Code(s): I21.3 - ST elevation (STEMI) myocardial infarction of unspecified site
[2019-02-06] MEDS ORDERED: FUROSEMIDE 20 MG in SYRINGE 0 ML IV ONE (11:00)
--- NOTE | 2019-02-06 11:05 | Hospitalist Progress Note ---
Date of Service February 06, 2019 Assessment & Plan (1) ST elevation (STEMI) myocardial infarction: This is a 63-year-old female who presents with indigestion and chest discomfort and found to have acute ST elevation myocardial infarction in inferior leads. -cardiac cath summary 02/05/19 1. Acute 100% mid RCA occlusion 2. Severe multi--vessel non-culprit coronary artery disease; 80% mid circumflex; 60 to 70% mid LAD 3. Normal intracardiac filling pressure 4. Transient bradycardia/hypotension with reperfusion which responded to atropine/IV fluids. 5. Successful PCI of mid RCA occlusion with 2 overlapping drug-eluting stents (4.0 x 8, 3.5 x 28 Xience Palmira). -post cardiac cath troponin level of 66, no chest pain, elevated troponins expected after carduac cath, trend troponins as per cardiology service -patient was transferred out of ICU to telemetry bed on 02/06/19 -continue aspirin, Brillinta, metoprolol, atorvastatin, lisinopril -post cardiac cath Echocardiogram report describes LVEF in the range of 50%. However after discussing further with cardiology service there is still concern for suboptimal inferior wall motion -cardiology service gave Lasix 20 mg IV x 1 on 02/06/19 in case any concern of subjective shortness of breath from fluid overload -cardiology will place patient diet NPO after midnight in case of any need for repeat cardiac cath on 02/07/19 Dyslipidemia: -Total cholesterol 320, LDL cholesterol 223. HDL cholesterol 67. -started on statin on this hospital stay Osteoarthritis -hold NSAIDs -because patient may get again cardiac cath and because cardiac medications may affect blood pressure, will avoid home dose 600 mg TID gabapentin to prevent hypotension Rheumatoid arthritis: -hold Nabumetone, hold Humira DVT prophylaxis: SCDs Subjective Patient seen and examined after being transferred out of ICU to telemetry almeida. Patient on room air. appears to be breathing comfortable one the bed. no acute chest discomforts currently. no dizziness. no headache. She is aware that perhaps cardiology is considering repeat cardiac cath Review of Systems Review of Systems: All systems reviewed & are unremarkable except as noted in HPI & below Physical Exam Constitutional: comfortable Eyes: PERRL, conjunctivae normal, anicteric sclerae EOM intact bilaterally ENMT: external ear and nose normal, oropharynx normal Neck: normal visual inspection Respiratory: normal respiratory effort, lungs clear to auscultation Cardiovascular: Rate/Rhythm: regular rate Gastrointestinal (Abdomen): normal bowel sounds, soft, nontender, no hepatosplenomegaly Musculoskeletal: Head/Neck/Chest: normocephalic and head atraumatic Neurologic: PERRL, EOMI, accommodation nl, no face palsy, no dysarthria CN's II-XI intact bilaterally Psychiatric: A+Ox3, euthymic affect Results & Data Vital Signs (Past 12 Hours) Vital Signs Temp Pulse Pulse Pulse Resp BP Pulse Ox 02/06/19 08:37 37.2 C 77 19 112/72 96 02/06/19 07:53 36.4 C L 71 21 110/72 94 02/06/19 06:00 68 18 102/70 93 02/06/19 05:00 66 16 95 02/06/19 04:00 36.8 C 63 18 101/63 94 02/06/19 03:00 70 14 94 02/06/19 02:00 68 18 90/60 L 95 02/06/19 01:00 69 20 94 02/06/19 00:34 68 02/06/19 00:00 36.9 C 65 14 100/60 94 (1) ST elevation (STEMI) myocardial infarction Involved coronary artery: unspecified coronary artery Qualified Code(s): I21.3 - ST elevation (STEMI) myocardial infarction of unspecified site
[2019-02-07 08:08] LABS: Albumin Level 3.5 gm/dl (3.4-5.0); BUN Creatinine Ratio 21.2 (10-20); Calcium 9.4 mg/dl (8.5-10.1); Creatinine Clr Calc Pharmacy 89.9 ml/min; Est GFR (African American) 119.5; Est GFR (Non-African American) 103.1; Potassium 3.9 mmol/L (3.5-5.1)
[2019-02-07 08:18] LABS: Albumin Globulin Ratio 0.8 (0.9-2); Bilirubin,Total 0.7 mg/dl (0.2-1); Globulin 4.3 gm/dl (2.5-4.0); Total Protein 7.8 gm/dl (6.4-8.2)
[2019-02-07] MEDS: ACETAMINOPHEN 325 MG TAB PO PRN ×2 (08:19→19:30)
--- NOTE | 2019-02-07 08:22 | Hospitalist Progress Note ---
Date of Service February 07, 2019 Assessment & Plan (1) ST elevation (STEMI) myocardial infarction: This is a 63-year-old female who presents with indigestion and chest discomfort and found to have acute ST elevation myocardial infarction in inferior leads. -cardiac cath summary 02/05/19 1. Acute 100% mid RCA occlusion 2. Severe multi--vessel non-culprit coronary artery disease; 80% mid circumflex; 60 to 70% mid LAD 3. Normal intracardiac filling pressure 4. Transient bradycardia/hypotension with reperfusion which responded to atropine/IV fluids. 5. Successful PCI of mid RCA occlusion with 2 overlapping drug-eluting stents (4.0 x 8, 3.5 x 28 Xience Palmira). -post cardiac cath troponin level of 66, no chest pain, elevated troponins expected after carduac cath, trend troponins as per cardiology service -patient was transferred out of ICU to telemetry bed on 02/06/19 -continue aspirin, Brillinta, metoprolol, atorvastatin, lisinopril -post cardiac cath Echocardiogram report describes LVEF in the range of 50%. However after discussing further with cardiology service there is still concern for suboptimal inferior wall motion -cardiology service gave Lasix 20 mg IV x 1 on 02/06/19 in case any concern of subjective shortness of breath from fluid overload -patient is currently NPO while awaiting cardiology re-evaluation whether any role for repeat cardiac cath on 02/07/19 Dyslipidemia: -Total cholesterol 320, LDL cholesterol 223. HDL cholesterol 67. -started on statin on this hospital stay Osteoarthritis -hold NSAIDs -because patient may get again cardiac cath and because cardiac medications may affect blood pressure, will avoid home dose 600 mg TID gabapentin to prevent hypotension. discussed with patient that perhaps gabapentin can be restarted at lower doses once cardiac medications are more finalized and based on trend of blood pressure Rheumatoid arthritis: -hold Nabumetone, hold Humira DVT prophylaxis: SCDs Subjective Patient seen and examined this AM. currently remains NPO while awaiting cardiology decision whether any further cardiac cath is needed. No chest pain. no shortness of breath. Patient reports left ear pain over night. The outer left ear appears mildly redder than opposite ear but no drainage from the left ear. No fevers overnight no nausea. no vomiting. no dizziness. no vertigo. no headache. Review of Systems Review of Systems: All systems reviewed & are unremarkable except as noted in HPI & below Physical Exam Constitutional: comfortable Eyes: PERRL, conjunctivae normal, anicteric sclerae EOM intact bilaterally ENMT: external ear and nose normal, oropharynx normal Neck: normal visual inspection Respiratory: normal respiratory effort, lungs clear to auscultation Cardiovascular: Rate/Rhythm: regular rate Gastrointestinal (Abdomen): normal bowel sounds, soft, nontender, no hepatosplenomegaly Musculoskeletal: Head/Neck/Chest: normocephalic and head atraumatic Neurologic: PERRL, EOMI, accommodation nl, no face palsy, no dysarthria CN's II-XI intact bilaterally Psychiatric: A+Ox3, euthymic affect Results & Data Vital Signs (Past 12 Hours) Vital Signs Temp Pulse Pulse Resp BP Pulse Ox 02/07/19 07:04 36.8 C 98 H 17 138/82 96 02/07/19 03:18 36.7 C 81 20 121/76 96 02/06/19 23:08 37.2 C 70 19 110/68 96 02/06/19 22:53 74 (1) ST elevation (STEMI) myocardial infarction Involved coronary artery: unspecified coronary artery Qualified Code(s): I21.3 - ST elevation (STEMI) myocardial infarction of unspecified site
[2019-02-07] MEDS ORDERED: SODIUM CHLORIDE 0.9% 1000ML 1,000 ML IV SCH ×2 (08:30→13:30)
[2019-02-07] MEDS: TICAGRELOR 90 MG TAB PO SCH ×2 (09:00→21:57)
--- NOTE | 2019-02-07 09:43 | Cardiology Progress Note ---
Date of Service February 07, 2019 Assessment & Plan (1) ST elevation (STEMI) myocardial infarction: S/p PCI drug 2 overlapping Deepa to the culprit mid RCA occlusion. Has residula Cx stenosis, for which staged PCI planned, likely today. Continue ASA, Brilinta, metoprolol, lisinopril, and atorvastatin. Sodium trended down to 129 today. No volume overloaded on exam, continue with NS IVF pre cath. (2) Dyslipidemia: Continue atorvastatin. (3) High transaminase levels: Trending toward improvement. Likely due to SC. Continue atorvastatin. (4) Rheumatoid arthritis: Holding NSAIDS. Subjective CC: follow up chest pain Subjective: Patient without symptoms of angina. Received furosemide yesterday for shortness of breath, but did not seem to make a difference and in the meantime this has resolved. Telemetry reveals stable SR without arrhythmia. Review of Systems Review of Systems: All systems reviewed & are unremarkable except as noted in HPI & below Physical Exam Physical Exam: Temp Pulse Resp BP Pulse Ox 36.8 C 98 H 17 138/82 96 02/07/19 07:04 02/07/19 07:04 02/07/19 07:04 02/07/19 07:04 02/07/19 07:04 Constitutional: WD/WN, vitals as above Respiratory: normal respiratory effort, lungs clear to auscultation Cardiovascular: RRR, no murmur, no edema Gastrointestinal (Abdomen): normal bowel sounds, soft, nontender, no hepatosplenomegaly Skin: no rashes, warm and dry Neurologic: PERRL, EOMI, accommodation nl, no face palsy, no dysarthria Results & Data Vital Signs (Past 12 Hours) Vital Signs Temp Pulse Pulse Resp BP Pulse Ox 02/07/19 07:04 36.8 C 98 H 17 138/82 96 02/07/19 03:18 36.7 C 81 20 121/76 96 02/06/19 23:08 37.2 C 70 19 110/68 96 02/06/19 22:53 74 (1) ST elevation (STEMI) myocardial infarction Involved coronary artery: unspecified coronary artery Qualified Code(s): I21.3 - ST elevation (STEMI) myocardial infarction of unspecified site
[2019-02-07] MEDS ORDERED: HEPARIN (PORCINE) 1000 UNIT/ML 10 ML (CATH LAB USE ONLY) ONE (11:09)
[2019-02-07] MEDS ORDERED: NiCARDipine HCL INJ 2.5 MG/ML 10 ML AMP ONE (11:09)
[2019-02-07] MEDS ORDERED: fentaNYL citrate 100 MCG/2 ML VIAL ONE (11:10)
[2019-02-07] MEDS ORDERED: MIDAZOLAM HCL 1 MG/ML 2ML VIAL ONE ×2 (11:10→11:57)
[2019-02-07] MEDS ORDERED: NITROGLYCERIN/D5W 100MCG/ML 20ML SYR ONE (11:11)
--- NOTE | 2019-02-07 12:24 | Pre Anesthesia Assessment ---
Date of Service February 07, 2019 Pre Sedation Assessment Vital Signs Temp Pulse Pulse Resp BP Pulse Ox 02/07/19 07:04 98.2 F 98 H 17 138/82 96 02/07/19 03:18 98.1 F 81 20 121/76 96 02/06/19 23:08 99.0 F 70 19 110/68 96 02/06/19 22:53 74 02/06/19 19:28 122/78 02/06/19 18:41 98.2 F 74 16 122/82 90 02/06/19 15:53 97.9 F 68 18 118/70 96 Cardiovascular RRR, no murmur, no edema Respiratory normal respiratory effort, lungs clear to auscultation Pre-Sedation Airway Assessment Smoking Status: Never smoker Hx Sleep Apnea: No Hx Difficult Intubation: No Short, Thick Neck: No Thyromental Distance: > or= 3.5 Finger Breadths Oral Cavity: + Dentures Mallampati Class: III ASA: ASA3 NPO Status Date of Last Intake of Fluids: 02/06/19 Time of Last Intake of Fluids: 17:00 Date of Last Intake of Solid Food: 02/06/19 Time of Last Intake of Solid Foods: 17:00 Procedure Planning Contraindications for Sedation: none Current Medications Reviewed: Yes Notes The planned sedation has been discussed with the patient. Informed Consent was obtained. I have identified the patient, determined the appropriateness of sedation and have assessed the patient immediately prior to the procedure. All medicine(s) and interventions are by my order.
--- NOTE | 2019-02-07 12:24 | Post Anesthesia Assessment ---
Date of Service February 07, 2019 Post Sedation Assessment Vital Signs Temp Pulse Pulse Resp BP Pulse Ox 02/07/19 07:04 98.2 F 98 H 17 138/82 96 02/07/19 03:18 98.1 F 81 20 121/76 96 02/06/19 23:08 99.0 F 70 19 110/68 96 02/06/19 22:53 74 02/06/19 19:28 122/78 02/06/19 18:41 98.2 F 74 16 122/82 90 02/06/19 15:53 97.9 F 68 18 118/70 96 Recovery Score Activity: Moves 4 extremities Respiration: Deep Breath/Cough Circulation: +/-20% PreAnes Value Consciousness: Fully Awake Oxygen Saturation: O2 needed for >90% Discharge Sedation Level of Care: Fast Track Phase II Post Sedation Plan On clinical assessment, the patient appears to have tolerated the sedation without complications. Patient is recovering as anticipated. Patient will continue to be monitored by nursing and may be discharged when sedation discharge criteria are met per below protocol. Upon Completions of procedure up to 15 minutes continue every 5 minute vital signs and the P.A.R. score; then discharge to a Phase I or Fast Track to Phase II per the following guidelines: * Discharge Patient to appropriate Phase II area if PAR is 8 or greater or return to pre- procedure baseline. The post - procedure orders will be as directed. * If PAR score is less than 8 or not return to pre-procedure baseline then patient will follow Phase I monitoring till PAR is reached for Phase II. The Phase I may be done in procedure room or may call to secure a Phase I area. * If naloxone or flumazenil are used for reversal, hold in Phase I for continued monitoring from when last reversal dose was given for a minimum of 60 minutes or longer pending the nurse and/or physician discretion of patient condition before discharge to Phase II. Please call the Sedation Physician to re-evaluate and complete post-note for discharge to Phase II area. Do NOT discharge from procedure sedation or Phase 1 until post- sedation evaluation note is complete by procedure /sedation MD Sedation Discharge Instructions to be given to the patient at discharge to home.
--- NOTE | 2019-02-07 12:33 | Cardiac Catheterization ---
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 Cardiac Status Clinical evaluation leading to the procedure CAD Presenation: STEMI Anginal Classification: CCS IV Heart Failure: No Cardiogenic Shock within 24 Hours: No Cardiac Arrest within 24 Hours: No Imaging Studies Past 6 Months: Yes Stress Studies Past 6 Months: No Diagnostic Physicians Name: Erik Wall MD Status: Elective Closure Device Percutaneous Entry Location: Radial Closure Device: Radial Band Recommendations: PCI without planned CABG PCI Indication: Staged PCI Lesion Segment Name: Proximal circumflex Culprit Artery: No Stenosis Prior to Rx (%): 90 Chronic Total Occlusion: No IVUS: No FFR: No Pre-Procedure BRITTNEY Flow: 3 Previously Treated Lesion: No Lesion Complexity: Non-High/Non-C Lesion Length (mm): 12 Thrombus Present: No Bifurcation Lesion: No Guidewire Across Lesion: Stenosis Post-Procedure (%): 0 Post-Procedure BRITTNEY Flow: 3 Devices(s) Deployed: Yes Yes Intraprocedure Events Significant Disection: No Perforation: No Cardiac Cath Procedure Full Procedure Date February 07, 2019 Pre-Procedure Diagnosis Pre-Procedure Diagnosis: Acute Coronary Syndrome AUC Score AUC Score: 7 Post-Procedure Diagnosis Post-Procedure Diagnosis: Severe CAD, Successful PCI and Normal Intracardiac Pressures Procedure(s) Performed Procedure(s) Performed: Coronary Angiography, Left Heart Cath, Drug Eluting Stent and Ultrasound Guided Vascular Access General Expeditor Erik Wall MD Criminal Analyst(s) Marlon Estimated Blood Loss Estimated Blood Loss: 15 Medication(s) Medication(s): Atropine, Fentanyl, Heparin, Lidocaine 1%, Nicardipine, Nitrog lycerin and Versed Medication(s): Ticagrelor Summary of Findings Indication: Staged PCI of circumflex. Post primary PCI of RCA for inferior STEMI 02/05/2019 Access: 6 Fr right radial artery under ultrasound guidance Catheters: EBU 3.5 guide Findings: For full details of patient's coronary angiography please cath report from 02/05/2019. At that time patient found to have an occluded RCA in the setting of inferior STEMI. This was treated with PCI with 2 ELSY. Noted to have severe non-culprit proximal circumflex disease. Brought back today for staged PCI. LVEDP -0 -- PCI -- Antithrombotic therapy: Heparin, ticagrelor Procedure: Left main cannulated with EBU 3.5 guide BMW wire passed across lesion into distal vessel Proximal to mid circumflex lesion predilated with 2.5 compliant balloon Dilated lesion stented with 3.0 x 15 mm Xience Palmira Stent post-dilated with 3.25 noncompliant balloon IC vasodilators administered for spasm Post procedure BRITTNEY 3 flow, stent well expanded with minimal residual stenosis and no apparent cardiac complications. Arterial Closure: TR band Summary: 1. Successful PCI of proximal to mid circumflex with single drug-eluting stent (3.0 x 15 mm [place]; postdilated with 3.25 NC). Recommendations: To PCU for continued monitoring On aspirin, ticagrelor, continue dual-antiplatelet therapy for at least one year Continue statin, and ASCVD risk factor modification Hemodynamics Rest Ao:: 90/58/71 Final Ao: 120/62/86 LV: 112/0 Recommendations Recommendations: PCI without planned CABG Specimens Specimens: None Radiation Exposure (mGy) 519 Contrast (mls) 45 Fluids (cc crystalloids) Fluids (cc crystalloids): 63 Drains Drains: None Anesthesia Moderate Procedural Complication(s) None Disposition PCU I attest to the content of the Intraoperative Record and any orders documented therein. Any exceptions are noted below. [facility] Card Cath Procedure Codes Cardiac Catheterization Procedure 1: Cardiovascular Cath Procedures: 42995 Left Heart Cath (+/-LV) Therapeutic Services & Ancillary Proc Procedure 1: Cardiovascular Tx and Anc Procedures: 84845 Ultrasonic Guidance Vascular Access Moderate Sedation Procedure 1: Sedation/Anesthesia: 89990 Mod Sedation by the same physician;Init15 Min Child Age 5 & Up Procedure 2: Sedation/Anesthesia: 81433 Mod Sedation by the same physician; Ea [id number] Minutes Stenting Procedure 1: Cardiovascular Stent Procedures: 98935 Perc transcatheter placement of intracoronary stent(s), with ang PG Care Time/CCT Total # of Minutes Spent Total Time Spent with Patient: Total time spent is greater than 50% in coordination of care (as documented) at patient's floor/unit and/or counseling patient:
[2019-02-07] MEDS: METOPROLOL TARTRATE 25 MG TAB PO SCH ×2 (13:52→21:57)
[2019-02-07] MEDS: LISINOPRIL 5 MG TAB PO SCH (13:52)
[2019-02-07] MEDS ORDERED: HYDROmorphone INJ 0.5 MG/0.5 ML SYR IV PRN (13:59)
[2019-02-07] MEDS ORDERED: OXYCODONE HCL IR 5 MG TAB (IMMEDIATE RELEASE) PO PRN (13:59)
[2019-02-07] MEDS ORDERED: POLYETHYLENE (MIRALAX) 17 GM PACK PO PRN (14:00)
[2019-02-07] MEDS: ATORVASTATIN 40 MG TAB PO SCH (15:25)
[2019-02-07] MEDS: ASPIRIN 81 MG ECTAB PO SCH (15:25)
[2019-02-07 17:42] LABS: Basophils # (auto) 0.02 K/uL (0-0.2); Basophils % (auto) 0.1 %; Eosinophils # (auto) 0.04 K/uL (0-0.5); Eosinophils % (auto) 0.3 %; Hemoglobin 12.3 g/dL (12.0-16.0); Immature Granulocytes # (auto) 0.04 K/uL (0.00-0.02); Immature Granulocytes % (auto) 0.3 %; Lymphocytes # (auto) 1.45 K/uL (1.2-3.4); Lymphocytes % (auto) 10.4 %; Mean Corpuscular Hemoglobin 31.5 pg (25-34); Mean Corpuscular Volume 92.3 fL (80-100); Mean Platelet Volume 8.5 fL (7.4-10.4); Monocytes % (auto) 13.6 %; Neutrophils # (auto) 10.55 K/uL (1.4-6.5); Neutrophils % (auto) 75.3 %; Platelet Count 239 K/uL (130-400); RDW Coefficient of Variation 13.4 % (11.5-14.5); RDW Standard Deviation 45.4 fL (36.4-46.3)
[2019-02-07 17:46] LABS: Mean Corpuscular Hgb Conc 34.2 g/dL (32-36)
[2019-02-07 18:00] LABS: Albumin Level 3.1 gm/dl (3.4-5.0); BUN Creatinine Ratio 20.5 (10-20); Calcium 8.9 mg/dl (8.5-10.1); Creatinine Clr Calc Pharmacy 95.4 ml/min; Est GFR (African American) 121.9; Est GFR (Non-African American) 105.2; Potassium 3.7 mmol/L (3.5-5.1)
[2019-02-07 18:03] LABS: Albumin Globulin Ratio 0.8 (0.9-2); Bilirubin,Total 0.7 mg/dl (0.2-1); Globulin 3.7 gm/dl (2.5-4.0); Total Protein 6.8 gm/dl (6.4-8.2)
[2019-02-08 05:43] LABS: Basophils # (auto) 0.02 K/uL (0-0.2); Basophils % (auto) 0.2 %; Eosinophils # (auto) 0.05 K/uL (0-0.5); Eosinophils % (auto) 0.4 %; Hematocrit (blood only) 36.2 % (37-47); Hemoglobin 12.4 g/dL (12.0-16.0); Immature Granulocytes # (auto) 0.03 K/uL (0.00-0.02); Immature Granulocytes % (auto) 0.3 %; Lymphocytes # (auto) 1.56 K/uL (1.2-3.4); Lymphocytes % (auto) 13.5 %; Mean Corpuscular Hemoglobin 31.6 pg (25-34); Mean Corpuscular Hgb Conc 34.3 g/dL (32-36); Mean Corpuscular Volume 92.3 fL (80-100); Mean Platelet Volume 8.9 fL (7.4-10.4); Monocytes # (auto) 1.55 K/uL (0.11-0.59); Monocytes % (auto) 13.4 %; Neutrophils # (auto) 8.38 K/uL (1.4-6.5); Neutrophils % (auto) 72.2 %; Platelet Count 201 K/uL (130-400); RDW Coefficient of Variation 13.6 % (11.5-14.5); RDW Standard Deviation 45.3 fL (36.4-46.3); Red Blood Count 3.92 M/uL (4.2-5.4); White Blood Count 11.59 K/uL (4.8-10.8)
[2019-02-08 06:12] LABS: Albumin Level 3.1 gm/dl (3.4-5.0); BUN Creatinine Ratio 18.8 (10-20); Calcium 8.7 mg/dl (8.5-10.1); Creatinine Clr Calc Pharmacy 108.7 ml/min; Est GFR (African American) 127.2; Est GFR (Non-African American) 109.8; Potassium 3.8 mmol/L (3.5-5.1)
[2019-02-08 06:15] LABS: Albumin Globulin Ratio 0.8 (0.9-2); Globulin 3.9 gm/dl (2.5-4.0)
[2019-02-08] MEDS ORDERED: ACETAMINOPHEN 325 MG TAB PO PRN (07:08)
[2019-02-08] MEDS: TICAGRELOR 90 MG TAB PO SCH (07:46)
[2019-02-08] MEDS: LISINOPRIL 5 MG TAB PO SCH (07:46)
[2019-02-08] MEDS: METOPROLOL TARTRATE 25 MG TAB PO SCH (07:47)
[2019-02-08] MEDS: ATORVASTATIN 40 MG TAB PO SCH (07:47)
[2019-02-08] MEDS: ASPIRIN 81 MG ECTAB PO SCH (08:02)
--- NOTE | 2019-02-08 12:22 | Cardiology Progress Note ---
Date of Service February 08, 2019 Assessment & Plan (1) ST elevation (STEMI) myocardial infarction: Patient presented with an inferior wall ST segment elevation myocardial infarction, underwent emergent cardiac catheterization with 2 drug-eluting stents placed in the culprit occlusion of the mid right coronary artery. 2 days later she returned for PCI, drug-eluting stent placement in the circumflex coronary artery yesterday 02/07/2019. Her presentation in the hospital several hours after the onset of her symptoms, and on the post PCI angiogram films, it was noted that the RV marginal branch was lost, and this likely accounts for her peak troponin of 68 ng/ml, and inferior Q waves. Post procedure after staged circumflex coronary intervention she did have a right wrist hematoma at her access site, this resolved with compression and close observation. Her hemoglobin is stable, anterior wrist has minimal residual swelling, with no stigmata of peripheral embolic phenomenon. She is stable from a cardiac perspective for discharge to home on aspirin 81 mg daily (lifelong therapy). Ticagrelor 90 mg twice daily, ideally for 1 year. -My office called the patient's outpatient pharmacy and her [id number] cost for a month of Brilinta will be $47. -Recommend at least 1 month of treatment of Brilinta after which we can consider transitioning her to clopidogrel. Metoprolol tartrate 25 mg twice daily, lisinopril 5 mg daily, atorvastatin 40 mg daily. I have requested a follow-up visit with me within 1 to 4 weeks. (2) High transaminase levels: This was felt to be elevated due to her myocardial infarction. Her AST peaked at 334, and is trended down to 79 units/L as of today. (3) Dyslipidemia: Significant dyslipidemia noted at baseline. Patient was hesitant to go on statin therapy, but after I discussed the rationale for her she was agreeable to atorvastatin. (4) Rheumatoid arthritis: NSAIDS on hold. Patient with low normal LVEF, inferior wall hypokinesis, perhaps will improve on follow-up. Will need to monitor her for symptoms of volume overload on Humira. Subjective Chief complaint: Follow-up chest discomfort Subjective: Patient feeling well. Her procedure site at the right wrist feels much better, having had some postprocedure discomfort there yesterday and a mild postoperative hematoma which has since resolved. Telemetry reveals stable sinus rhythm at around 80 bpm. She denies chest discomfort or shortness of breath. Review of Systems Review of Systems: All systems reviewed & are unremarkable except as noted in HPI & below Physical Exam Physical Exam: Temp Pulse Resp BP Pulse Ox 36.8 C 88 16 112/74 96 02/08/19 11:50 02/08/19 11:50 02/08/19 11:50 02/08/19 11:50 02/08/19 11:50 Constitutional: WD/WN, vitals as above Respiratory: normal respiratory effort, lungs clear to auscultation Cardiovascular: RRR, no murmur, no edema Gastrointestinal (Abdomen): normal bowel sounds, soft, nontender, no hepatosplenomegaly Musculoskeletal: Degenerative joint changes noted in her fingers consistent with her history of rheumatoid arthritis. Neurologic: PERRL, EOMI, accommodation nl, no face palsy, no dysarthria Results & Data Vital Signs (Past 12 Hours) Vital Signs Temp Pulse Resp BP Pulse Ox 02/08/19 11:50 36.8 C 88 16 112/74 96 02/08/19 07:03 37.1 C 90 18 110/80 97 02/08/19 03:09 36.6 C 80 20 118/78 96 Laboratory Results Cardiac Enzymes 02/07/19 02/08/19 Range/Units 17:18 05:13 AST 88 H 79 H (15-37) U/L CBC 02/07/19 02/08/19 Range/Units 17:18 05:13 WBC 14.00 H 11.59 H (4.8-10.8) K/uL RBC 3.90 L 3.92 L (4.2-5.4) M/uL Hgb 12.3 12.4 (12.0-16.0) g/dL Hct 36.0 L 36.2 L (37-47) % Plt Count 239 201 (130-400) K/uL Neut # (Auto) 10.55 H 8.38 H (1.4-6.5) K/uL Lymph # (Auto) 1.45 1.56 (1.2-3.4) K/uL Davis # (Auto) 1.90 H 1.55 H (0.11-0.59) K/uL Eos # (Auto) 0.04 0.05 (0-0.5) K/uL Baso # (Auto) 0.02 0.02 (0-0.2) K/uL Comprehensive Metabolic Panel 02/07/19 02/08/19 Range/Units 17:18 05:13 Sodium 130 L 132 L (136-145) mmol/L Potassium 3.7 3.8 (3.5-5.1) mmol/L Chloride 100 102 (98-107) mmol/L Carbon Dioxide 22 22 (21-32) mmol/L BUN 10 8 (7-18) mg/dl Creatinine 0.49 L 0.43 L (0.6-1.2) mg/dl Glucose 120 H 98 (70-99) mg/dl Calcium 8.9 8.7 (8.5-10.1) mg/dl AST 88 H 79 H (15-37) U/L ALT 30 26 (12-78) U/L Alkaline Phosphatase 103 102 (45-117) U/L Total Protein 6.8 7.0 (6.4-8.2) gm/dl Albumin 3.1 L 3.1 L (3.4-5.0) gm/dl Intake and Output 02/07/19 02/08/19 02/08/19 22:59 06:59 14:59 Intake Total 300 / 2470 1120 / 2470 Output Total 475 / 1625 1150 / 1625 Balance -175 / 845 -30 / 845 Intake: IV 1000 / 2000 Nss 1000ML 1,000 ml @ 100 mls/ 1000 / 1000 hr IV .Q10H [facility] Rx#:[id number] Oral 300 / 470 120 / 470 Output: Urine 475 / 475 Urine Amount (Catheter) 1150 / 1150 Brown/Indwelling 1150 / 1150 Other: Weight 52.6 kg Diagnostic Findings EKG performed today 02/08/2019 reveals normal sinus rhythm with involved inferior AR pattern, Q waves noted in leads III and aVF, with associated deep T wave inversions in II, III, aVF. She now has developed T wave inversions in the lateral precordial leads status post circumflex intervention. Medications Administered Current Inpatient Medications Acetaminophen (Tylenol) 325 mg PO Q6H PRN PRN Reason: Pain or Fever Stop: 03/07/19 14:26 Aspirin ([facility]cotrin [facility]ab) [facility] [place]: 03/07/19 08:59 Last Admin: 02/08/19 08:02 Dose: 81 mg Documented by: Atorvastatin Calcium (Lipitor) 40 mg PO QAM [facility] Stop: 03/07/19 08:59 Last Admin: 02/08/19 07:47 Dose: 40 mg Documented by: Hydromorphone HCl (Dilaudid) 0.5 mg IV Q6H PRN PRN Reason: Severe Pain Stop: 02/21/19 13:58 Last Admin: 02/07/19 14:09 Dose: 0.5 mg Documented by: Lisinopril (Zestril) 5 mg PO QAM [facility] Stop: 03/07/19 04:44 Last Admin: 02/08/19 07:46 Dose: 5 mg Documented by: Metoprolol Tartrate (Lopressor) 25 mg PO BID [facility] Stop: 03/07/19 08:59 Last Admin: 02/08/19 07:47 Dose: 25 mg Documented by: Ondansetron HCl (Zofran) 4 mg IV Q6H PRN PRN Reason: Nausea And Vomiting Stop: 03/07/19 04:41 Last Admin: 02/05/19 07:19 Dose: 4 mg Documented by: Oxycodone HCl (Roxicodone Immediate Rel) 5 mg PO Q8H PRN PRN Reason: Moderate Pain Stop: 02/21/19 13:58 Polyethylene Glycol (Miralax Powder Packet) 17 gm PO DAILY PRN PRN Reason: Constipation Stop: 03/09/19 13:59 Ticagrelor (Brilinta) 90 mg PO BID [facility] Stop: 03/07/19 20:59 Last Admin: 02/08/19 07:46 Dose: 90 mg Documented by: (1) ST elevation (STEMI) myocardial infarction Involved coronary artery: unspecified coronary artery Qualified Code(s): I21.3 - ST elevation (STEMI) myocardial infarction of unspecified site
--- NOTE | 2019-02-08 13:16 | Hospitalist Progress Note ---
Date of Service February 08, 2019 Assessment & Plan (1) ST elevation (STEMI) myocardial infarction: This is a 63-year-old female who presents with indigestion and chest discomfort and found to have acute ST elevation myocardial infarction in inferior leads. -cardiac cath summary 02/05/19 1. Acute 100% mid RCA occlusion 2. Severe multi--vessel non-culprit coronary artery disease; 80% mid circumflex; 60 to 70% mid LAD 3. Normal intracardiac filling pressure 4. Transient bradycardia/hypotension with reperfusion which responded to atropine/IV fluids. 5. Successful PCI of mid RCA occlusion with 2 overlapping drug-eluting stents (4.0 x 8, 3.5 x 28 Xience Palmira). -post cardiac cath troponin level of 66, no chest pain, elevated troponins expected after carduac cath, trend troponins as per cardiology service -patient was transferred out of ICU to telemetry bed on 02/06/19 -continue aspirin, Brillinta, metoprolol, atorvastatin, lisinopril -post cardiac cath Echocardiogram report describes LVEF in the range of 50%. However after discussing further with cardiology service there is still concern for suboptimal inferior wall motion - she returned for PCI, drug-eluting stent placement in the circumflex coronary artery yesterday 02/07/2019. -discharge medications sent electronically to [facility] [address] [place] [id number] Metoprolol tartrate 25 mg twice daily, lisinopril 5 mg daily, atorvastatin 40 mg daily. aspirin 81 mg daily (life long duration as per cardiology Dr. Quiroz), Ticagrelor (also called Brillinta) 90 mg twice daily, ideally for 1 year but currently to be on Ticagelor for 1 month before considering transition of Ticagelor to clopidogrel Right Wrist hematoma -Patient has right right wrist hematoma from the second cardiac cath. Patient may take acetaminophen every 6 hours as needed for pain. Ice can applied to right wrist area Dyslipidemia: -Total cholesterol 320, LDL cholesterol 223. HDL cholesterol 67. -started on statin on this hospital stay Hyponatremia -discharge day serum sodium is 133. Patient should have follow up labs with [facility] medical doctor Osteoarthritis Rheumatoid arthritis -Hospitalist discussed with patient to avoid rheumatoid and osteoarthritis home medications until follow up with family medical doctor or outpatient bridge builder to avoid potential drug interactions with new cardiac medications. also should avoid NSAID medications (ibuprofen, Advil, Aleve, Motrin) to avoid bleeding risks Scheduled appointments 02/09/2019 1:00 PM Provider Lani Baer MD Department Rheumatology [facility] 02/11/2019 11:20 AM Provider Doron Veloz DO Department General Internal Medicine [facility] 03/04/2019 11:00 AM Provider Josesito Quiroz DO Department Cardiology, [facility] 04/04/2019 10:30 AM Provider Starla Echevarria PA-C Department Rheumatology [facility] Discharge Diagnosis: ST elevation (STEMI) myocardial infarction,s/p drug eluting coronary artery stent placement, Hyponatremia, right wrist hematoma, rheumatoid arthritis Subjective right wrist hematoma improved. no chest pain. no shortness of breath. no headache. no lightheadedness. no dizziness. no headache. discharge plans discussed at length Review of Systems Review of Systems: All systems reviewed & are unremarkable except as noted in HPI & below Physical Exam Constitutional: comfortable Eyes: PERRL, conjunctivae normal, anicteric sclerae EOM intact bilaterally ENMT: external ear and nose normal, oropharynx normal Neck: normal visual inspection Respiratory: normal respiratory effort, lungs clear to auscultation Cardiovascular: Rate/Rhythm: regular rate Gastrointestinal (Abdomen): normal bowel sounds, soft, nontender, no hepatosplenomegaly Musculoskeletal: Head/Neck/Chest: normocephalic and head atraumatic Extremities: extremities normal to inspection (mild right wrist hematoma) Neurologic: PERRL, EOMI, accommodation nl, no face palsy, no dysarthria CN's II-XI intact bilaterally Psychiatric: A+Ox3, euthymic affect Results & Data Vital Signs (Past 12 Hours) Vital Signs Temp Pulse Pulse Resp BP BP Pulse Ox 02/08/19 12:20 36.8 C 71 88 16 112/74 148/90 H 96 02/08/19 11:50 36.8 C 88 16 112/74 96 02/08/19 07:03 37.1 C 90 18 110/80 97 02/08/19 03:09 36.6 C 80 20 118/78 96 (1) ST elevation (STEMI) myocardial infarction Involved coronary artery: unspecified coronary artery Qualified Code(s): I21.3 - ST elevation (STEMI) myocardial infarction of unspecified site
--- NOTE | 2019-02-08 13:24 | Discharge Summary ---
Date of Service February 08, 2019 Admission HPI Per Admitting Provider CHIEF COMPLAINT: Chest pain, ST elevated NE. HISTORY OF PRESENT ILLNESS: This is a 63-year-old female with past medical history significant for rheumatoid arthritis, history of cervical disk disease, osteoporosis, osteoarthritis, iron deficiency anemia,presented with indigestion, chest discomfort and found to have inferior ST elevated NE. The patient states after supper, she noticed indigestion and discomfort in the diaphragm region and epigastric region, severe in nature, radiating to the chest. Also there is some nausea and sweating. It was not getting better and she decided to come to the hospital. In the ER, she was found to have ST elevated NE in inferior leads. Heart alert was called. She is s/p emergent cardiac cath and found to have occluded mid RCA,and , status post two drug-eluting johnie nts and she also found to have 80% mid circumflex disease and also 60%-70% mid LAD. Currently, after the procedure, the patient is chest pain free and she is feeling fine, asymptomatic and hemodynamically stable. Denies any headaches, no blurred vision, no earache, no runny nose, no sore throat. She has some cough though she is just having it at night times. Appetite is okay. No difficulty swallowing. She felt some shortness of breath when she had severe pain, but currently she is doing okay. Currently no nausea, no abdominal pain. Normal bowel and bladder movements. No hematuria or burning micturition. No blood in the stools or black stools. No swelling in the legs. No rash. Otherwise, she is active. She ambulates okay. Admission Exam Per Admitting Provider PHYSICAL EXAMINATION: GENERAL: The patient is of moderate build, not in acute distress. VITAL SIGNS: Temperature 36.3, pulse 94, respiratory rate 20, blood pressure 102/79, oxygen 95% room air. HEENT: No pallor, no icterus. Pupils equal, round, reactive to light. NECK: No JVD, no neck masses, no carotid bruit. CARDIOVASCULAR: S1, S2 heard. Regular rate and rhythm. No murmur, no gallop. RESPIRATORY SYSTEM: Normal AP diameter. No accessory muscle use. No wheezing, no crackles. ABDOMEN: Soft, bowel sounds present, nontender. No distention. CENTRAL NERVOUS SYSTEM: Cranial nerves II-XII grossly intact. Nonfocal. EXTREMITIES: Right wrist cardiac cath site clean and no drainage seen. Lower extremity has no edema, no erythema seen. Principal Diagnosis ST elevation (STEMI) myocardial infarction,s/p drug eluting coronary artery stent placement, Hyponatremia, right wrist hematoma, rheumatoid arthritis Discharge Exam Constitutional comfortable Eyes PERRL, conjunctivae normal, anicteric sclerae EOM intact bilaterally ENMT external ear and nose normal, oropharynx normal Neck normal visual inspection Respiratory normal respiratory effort, lungs clear to auscultation Cardiovascular Rate/Rhythm: regular rate Gastrointestinal (Abdomen) normal bowel sounds, soft, nontender, no hepatosplenomegaly Musculoskeletal Head/Neck/Chest: normocephalic and head atraumatic Extremities: extremities normal to inspection (mild right wrist hematoma) Neurologic PERRL, EOMI, accommodation nl, no face palsy, no dysarthria CN's II-XI intact bilaterally Psychiatric A+Ox3, euthymic affect Discharge Data Allergies Allergy/AdvReac Type Severity Reaction Status Date / Time chlorhexidine Allergy Intermediate REDNESS/ITC Verified 02/05/19 02:55 ARBEN adhesive Allergy Unknown ALLERGIC Verified 02/05/19 02:55 TO TAPE, HOWEVER PAPER TAPE IS OK VICRYL Allergy Unknown "SUTURES Uncoded 02/05/19 02:55 DON'T DISSOLVE" Consultations 02/05/19 04:37 Consult Case Management - Discharge Planning Routine Consult Seam Feller Routine 02/05/19 04:43 Consult Cardiac Rehabilitation Routine 02/05/19 05:19 Consult Seam Feller Routine 02/05/19 10:58 Consult Cardiology Routine Procedures Performed Operation Date: 02/05/19 03:05 Actual Procedures p Aspiration/PCI w/ELSY for Stemi - Edd Wall MD s Cath, Left with Cors and Vent - Edd Wall MD s Cineradiography w/Routine Exam - Edd Wall MD s Ultrasound Vascular Access - Edd Wall MD Operation Date: 02/07/19 10:30 Actual Procedures p Drug Eluting Stent SGl Vessel - Edd Wall MD s Cineradiography w/Routine Exam - Edd Wall MD s Ultrasound Vascular Access - Edd Wall MD Ordered Studies 02/05/19 03:07 CL Cath Imgs for PACS use only Stat 02/07/19 08:34 CL Cath Imgs for PACS use only Routine Hospital Course (1) ST elevation (STEMI) myocardial infarction: This is a 63-year-old female who presents with indigestion and chest discomfort and found to have acute ST elevation myocardial infarction in inferior leads. -cardiac cath summary 02/05/19 1. Acute 100% mid RCA occlusion 2. Severe multi--vessel non-culprit coronary artery disease; 80% mid circumflex; 60 to 70% mid LAD 3. Normal intracardiac filling pressure 4. Transient bradycardia/hypotension with reperfusion which responded to atropine/IV fluids. 5. Successful PCI of mid RCA occlusion with 2 overlapping drug-eluting stents (4.0 x 8, 3.5 x 28 Xience Palmira). -post cardiac cath troponin level of 66, no chest pain, elevated troponins expected after carduac cath, trend troponins as per cardiology service -patient was transferred out of ICU to telemetry bed on 02/06/19 -continue aspirin, Brillinta, metoprolol, atorvastatin, lisinopril -post cardiac cath Echocardiogram report describes LVEF in the range of 50%. However after discussing further with cardiology service there is still concern for suboptimal inferior wall motion - she returned for PCI, drug-eluting stent placement in the circumflex coronary artery yesterday 02/07/2019. -discharge medications sent electronically to [facility] [address] [place] [id number] Metoprolol tartrate 25 mg twice daily, lisinopril 5 mg daily, atorvastatin 40 mg daily. aspirin 81 mg daily (life long duration as per cardiology Dr. Quiroz), Ticagrelor (also called Brillinta) 90 mg twice daily, ideally for 1 year but currently to be on Ticagelor for 1 month before considering transition of Ticagelor to clopidogrel Right Wrist hematoma -Patient has right right wrist hematoma from the second cardiac cath. Patient may take acetaminophen every 6 hours as needed for pain. Ice can applied to right wrist area Dyslipidemia: -Total cholesterol 320, LDL cholesterol 223. HDL cholesterol 67. -started on statin on this hospital stay Hyponatremia -discharge day serum sodium is 133. Patient should have follow up labs with primary medical doctor Osteoarthritis Rheumatoid arthritis -Hospitalist discussed with patient to avoid rheumatoid and osteoarthritis home medications until follow up with family medical doctor or outpatient knife changer to avoid potential drug interactions with new cardiac medications. also should avoid NSAID medications (ibuprofen, Advil, Aleve, Motrin) to avoid bleeding risks Scheduled appointments 02/09/2019 1:00 PM Provider Lani Baer MD Department Rheumatology [facility] 02/11/2019 11:20 AM Provider Doron Veloz DO Department General Internal Medicine [facility] 03/04/2019 11:00 AM Provider Josesito Quiroz DO Department Cardiology, [facility] 04/04/2019 10:30 AM Provider Starla Echevarria PA-C Department R heumatology [facility] Discharge Diagnosis: ST elevation (STEMI) myocardial infarction,s/p drug eluting coronary artery stent placement, Hyponatremia, right wrist hematoma, rheumatoid arthritis Total Time Total Time Spent Total Time Spent (In Minutes): 40 minutes Total Time Includes: Examination of the Patient, Discharge Planning, Medication Reconciliation and Communication With Other Providers Discharge Plan Discharge Items Patient Disposition: Home - Self-Care Reason For Visit: ACUTE NE Discharge Diagnosis: ST elevation (STEMI) myocardial infarction,s/p drug eluting coronary artery stent placement, Hyponatremia, right wrist hematoma, rheumatoid arthritis Condition on Discharge: Good Activity: Per Instructions section Non-emergency contact: Primary Care Provider and Mixing Tank Operator Call non-emergency contact if: you have any medication questions Follow-up/Referrals: Doron Veloz DO [Primary Care Provider] - Diet: Heart Healthy Addtl Attending Provider Instructions: discharge medications sent electronically to [facility] [address] [place] [id number] Metoprolol tartrate 25 mg twice daily, lisinopril 5 mg daily, atorvastatin 40 mg daily. aspirin 81 mg daily (life long duration as per cardiology Dr. Quiroz), Ti cagrelor (also called Brillinta) 90 mg twice daily, ideally for 1 year but currently to be on Ticagelor for 1 month before considering transition of Ticagelor to clopidogrel Hospitalist discussed with patient to avoid rheumatoid and osteoarthritis home medications until follow up with family medical doctor or outpatient knife changer to avoid potential drug interactions with new cardiac medicati ons. also should avoid NSAID medications (ibuprofen, Advil, Aleve, Motrin) to avoid bleeding risks Patient has right right wrist hematoma from the second cardiac cath. Patient may take acetaminophen every 6 hours as needed for pain. Ice can applied to right wrist area discharge day serum sodium is 133. Patient should have follow up labs with primary medical doctor Scheduled appointments 02/09/2019 1:00 PM Provider Lani Baer MD Department Rheumatology [facility] 02/11/2019 11:20 AM Provider Doron Veloz DO Department General Internal Medicine [facility] 03/04/2019 11:00 AM Provider Josesito Quiroz DO Department Cardiology, [facility] 04/04/2019 10:30 AM Provider Starla Echevarria PA-C Department Rheumatol [facility] Cardiac Nurse Provider Instructions: . Who to Call and When: Medical Emergencies: If at any time you feel your situation is an emergency, please call 911 immediately. Call 911 immediately or go to your nearest Emergency Room if you experience any of the following: Warning Signs and Symptoms of a Heart Attack * Chest pain that is not relieved by medication * Shortness of breath Pending Studies at Discharge: No Studies:: Patient presented with an inferior wall ST segment elevation myocardial infarction, underwent emergent cardiac catheterization with 2 drug- eluting stents placed in the culprit occlusion of the mid right coronary artery. 2 days later she returned for PCI, drug-eluting stent placement in the circumflex coronary artery yesterday 02/07/2019. Stand-Alone Forms: My [facility] GetMaid, Smoking Cessation Medications and DC Order Prescriptions: New atorvastatin 40 mg Tablet 40 mg PO QAM 30 Days Qty: 30 RF: 0 aspirin [Ecotrin Low Strength] 81 mg Tablet,Delayed Release (Dr/Ec) 81 mg PO QAM 30 Days Qty: 30 RF: 0 lisinopril [Zestril] 5 mg Tablet 5 mg PO QAM 30 Days Qty: 30 RF: 0 gabapentin 100 mg Capsule 100 mg PO BID 30 Days Qty: 60 RF: 0 metoprolol tartrate 25 mg Tablet 25 mg PO BID 30 Days Qty: 60 RF: 0 Brilinta 90 mg Tablet 90 mg PO BID 30 Days Qty: 60 RF: 0 Discontinued gabapentin 600 mg tablet 600 mg PO TID RF: 0 nabumetone 500 mg tablet 500 mg PO BID RF: 0 Humira Pen 40 mg/0.8 mL Pen Injector Kit 0 mg SUBCUT .COMPLEX RF: 0 Prolia 60 mg/mL Syringe 0 mg SUBCUT USEASDIRECTD RF: 0 Discharge Orders: Discharge Order (Routine); Ordered 02/08/19 Ordered By: Carlos Poole Admission Data Admit Date/Time: 02/05/19 04:37 Attending Provider: Carlos Poole Admit Provider: Edd Wall Primary Care Provider: Doron Veloz Other Providers: David Orona ; Ramón Zuluaga ; Josesito Quiroz Other Interventions: Discharge Summary Assessment (RN) Last Done: 02/08/19 12:20
[2019-02-08] MEDS ORDERED: GABAPENTIN 100 MG CAP PO SCH (21:00)
== END 2019-02-08 13:51 | disposition home or self-care (01) | DRG 246 ==
LOC: ED 02:19 → CC 03:27 → 1E 04:37 → SUATTDRO 04:37 → 2S 02-06 08:05

== ENCOUNTER 2019-05-25 15:30 | Observation (INO) ==
[2019-05-25] MEDS ORDERED: SODIUM CHLORIDE 0.9% 500 ML IV ONE (15:48)
--- NOTE | 2019-05-25 15:54 | Emergency Department Note ---
ED Provider Note NAME: YEHUDA PATEL AGE: 64 SEX: F ARRIVES VIA: Walk-In INFORMANT: [Patient] ED PROVIDER(S): Farrukh Mccann MD CHIEF COMPLAINT: Chest pain MEDICAL DECISION MAKING: The patient is a pleasant 64-year-old woman with a past medical history of r heumatoid arthritis, cervical disc disease osteoporosis, iron deficiency anemia who is status post STEMI on 02/07/2019 status post PCI who presents emergency department with chest pressure that began around noon today in the setting of feeling sinus congestion and fatigue today which has subsequently improved. The patient reports a chronic cough related to her lisinopril that is unchanged. She denies any fevers, nausea, vomiting, diarrhea. She denies any recent travel. She denies any sick contacts. In particular she denies any sick contact with confirmed novel coronavirus. On arrival the patient is in no acute distress, afebrile with heart rate in the 80s but elevated blood pressures 19 0s/120s. She reports that she usually has "low blood pressure". She has not missed any of her medications. She does note that she typically cannot have her pressure measured with an automatic cuff as it usually compresses too tightly and causes her to tense up resulting in an abnormal reading. Review of the patient's previous admission and her cardiac cath she had 100% mid RCA occlusion. There was severe multivessel non-culprit CAD with 80% mid circumflex, 60 to 70% mid LAD. Patient had successful PCI of the right mid RCA occlusion with 2 overlapping drug-eluting stents. EKG without overt acute ischemia. Chest x-ray negative for acute process. WBC, H/H and platelets within normal limits. Chemistry without acidosis. Electrolytes and LFTs unremarkable. Troponin negative/undetectable. TSH within normal limits. UA negative for infection. Flu negative. Given the patient's elevated blood pressures in the setting of report of chest pain with radiation a CTA of the chest with dissection protocol was performed and was negative for for aneurysm or dissection of the thoracic thoracic aorta. Note is made of moderate atherosclerotic calcifications of the thoracic aorta with short segment ulcerative plaque of the proximal left subclavian artery and also mixed plaque of the proximal right subclavian artery with 50% narrowing. Bibasilar opacities are noted, suggestive of atelectasis particularly given the patient's report of no new symptoms of lower respiratory congestion or cough. Upon re-evaluation the patient's blood pressure was unchanged. Further, she reports return of her previous frontal headache and pressure as well as intermittent return of her chest pressure. Given patient's fluctuating symptoms, unclear if BP is cause or effect of symptoms. Given her pressure does appear acutely worse from her baseline reasonable to admit for hypertensive urgency. Patient is agreeable with this. CT head ordered to further exclude intracranial etiology (though patient is neurologically intact). CT head negative for acute process. Patient was feeling improved/with resolution of BUSTAMANTE after initial treatment with 'migraine cocktail' with Apap, Compazine, and diphenhydramine in addition to Labetalol for BP control. [facility] working with Dr. Miryam Patricio [facility] hospitalist who will evaluate the patient for admission. Triage Nursing notes reviewed and agree them. [Prior medical records reviewed] Vital Signs: reviewed and remarkable for hypertension. Differential diagnosis: Cardiac ischemia, aortic dissection, pulmonary embolism, pneumothorax, pn eumonia, pericarditis, myocarditis, esophageal rupture, GERD, cholecystitis, pancreatitis, musculoskeletal, as well as other pathologies. ER treatment provided: See below. Diagnostics interpreted by me: ECG: NSR 85 bpm, normal axis, no ectopy, no ST elevation or depression Cardiac Monitoring: NSR, 85 bpm, no ectopy. Laboratory studies: [See below] [] Imaging studies: XR chest 1V portable HISTORY: 64 years-old Female Chest Pain acute atypical chest pain COMPARISON: Chest radiograph 02/05/2019 TECHNIQUE: Portable AP view of the chest FINDINGS: Cardiomediastinal and hilar silhouettes are within normal limits. Calcified plaque of the thoracic aortic arch. No pneumothorax, pleural effusion, overt pulmonary edema or airspace consolidation typical for pneumonia. Minimal linear bibasilar densities suggest atelectasis/scarring. Severe osteoarthritis of the left glenohumeral joint. Right shoulder arthroplasty. Partially imaged cervical spinal fusion hardware. Multilevel degenerative changes of the spine. IMPRESSION: No acute process. --- CT angio chest dissec wo/w con HISTORY: 64 years-old Female chest pain to back/jaw, hypertensive acute chest pain with hypertension COMPARISON: Chest radiograph of same day TECHNIQUE: CTA of the chest was obtained both with and without the use of 120 mL Optiray 320 IV contrast. 3-D coronal and sagittal MIPS were obtained from the axial data set and submitted for review. A dose lowering technique was used consistent with the principals of ALARA. FINDINGS: CTA: Moderate cardiomegaly. No pericardial effusion. Coronary artery calcifications. No thoracic aortic aneurysm or dissection. No intramural hematoma. Moderate calcified plaque the thoracic aorta. There is a short segment ulcerative plaque involving the proximal aspect of the left subclavian artery on image 61 series 7. Moderate mixed plaque involves the proximal aspect of the right subclavian artery resulting in 50% luminal narrowing, image 67 series 7. Medial course of the bilateral proximal aspects of the common carotid arteries. The opacified pulmonary artery is unremarkable. No filling defects identified to suggest pulmonary thromboembolic disease. CT CHEST: No large thyroid nodule or adenopathy. No pneumothorax or pleural effusion. Mild dependent subsegmental bibasilar atelectasis. Linear right lung base opacities also suggest atelectasis. No suspicious pulmonary nodules or masses. No airspace consolidation typical for pneumonia. There is mild bronchial wall thickening. Study is mildly limited secondary to respiratory motion artifact. Secretions are noted within the mid esophagus. No acute process of the imaged upper abdomen. Soft tissues are unremarkable. Right shoulder arthroplasty. Severe osteoarthritis of the left shoulder. Multilevel degenerative changes of the spine. Partially imaged cervical spine fusion hardware. No suspicious osseous lesions. IMPRESSION: 1. Cardiomegaly without thoracic aortic aneurysm or dissection. 2. Moderate atherosclerotic calcifications of the thoracic aorta with short segment ulcerative plaque of the proximal left subclavian artery. 3. Mixed plaque of the proximal right subclavian artery results in 50% luminal narrowing. 4. Bibasilar opacities, right greater than left suggest atelectasis. ---- CT head/brain wo con CLINICAL HISTORY: 64 years-old Female with headache. Acute headache TECHNIQUE: Multiple axial CT images of the head were obtained without contrast. A dose lowering technique was utilized adhering to the principles of ALARA. CT DOSE: 537.48 mGy.cm COMPARISON: None. FINDINGS: No acute intracranial hemorrhage, midline shift, intracranial mass, hydrocephalus, territorial ischemia or abnormal extra-axial collection. Calcifications of the bilateral basal ganglia. Opacified vascular structures secondary to recent CTA of the chest of same day. The calvarium is intact. Moderate left mastoid effusion. Right mastoid air cells are clear. The imaged paranasal sinuses also appear clear. Soft tissues and orbits are unremarkable. IMPRESSION: No acute intracranial abnormality. Consultation(s): Sayra Peterson with Sayra Dumont hospitalist. HPI: The patient is a pleasant 64-year-old woman with a past medical history of rheumatoid arthritis, cervical disc disease osteoporosis, iron deficiency anemia who is status post STEMI on 02/07/2019 status post PCI who presents emergency department with chest pressure that began around noon today in the setting of feeling nasal congestion and fatigue today which has subsequently improved. The patient reports a chronic cough related to her lisinopril that is unchanged. She denies any fevers, nausea, vomiting, diarrhea. She denies any recent travel. She denies any sick contacts. In particular she denies any sick contact with confirmed novel coronavirus. ROS: See above HPI for pertinent positives & negatives. A total of [10] systems reviewed and were otherwise negative. PAST MEDICAL HISTORY:[See Below] PAST SURGICAL HISTORY:[See Below] FAMILY HISTORY:[See Below] SOCIAL HISTORY:[See Below] HOME MEDICATIONS:[See Below] ALLERGIES:[See Below] VITALS:[See Below] PHYSICAL EXAMINATION: GENERAL: Awake, alert, well-appearing, in no distress HENT: Normocephalic, atraumatic. Oropharynx with dry mucous membranes and otherwise unremarkable. . EYES: Normal conjunctiva. Sclera non-icteric. EOMI. No nystamgus. PEARRL. NECK: Supple. No nuchal rigidity. FROM. No JVD. RESPIRATORY: Clear to auscultation. CARDIAC: Regular rate, normal rhythm. Extremities warm and well perfused. Pulses equal. ABDOMEN: Soft, non-distended. No tenderness to palpation. No rebound or guarding. No masses. RECTAL: Deferred. MUSCULOSKELETAL: Chest examination reveals no tenderness. The back is symmetrical on inspection without obvious abnormality. There is no CVA tenderness to palpation. No joint edema. Chronic hand deformity 2/2 RA. LOWER EXTREMITIES: Calves are equal size bilaterally and non-tender. No edema. No discoloration. NEURO: Normal sensorium. No sensory or motor deficits noted. SKIN: No rash or jaundice noted. Farrukh Mccann MD Impression & Plan Hypertensive urgency, S/P drug eluting coronary stent placement, Atypical chest pain, Headache Past Med/Surg History Medical History CAD (coronary artery disease) Dyslipidemia (Acute) Osteoporosis (Chronic) Rheumatoid arthritis (Chronic) STEMI (ST elevation myocardial infarction) (Acute) 02/05/19- 2 ELSY mid RCA. 02/07/19 1 ELSY to proximal Circumflex Surgical History History of hysterectomy History of right shoulder replacement History of total bilateral knee replacement History of total left hip replacement S/P cervical spinal fusion Family History Mother Diabetes Heart disease Social History Preferred Language: Ethiopian Communication Ability: Effective Soccer Player Required: No Beliefs That Will Affect Care: None marital status: Current Living Situation: Spouse Feels Safe at Home: Yes Safety Concerns: Feels Safe At This Time Smoking Status: Never smoker Hx Alcohol Use: No Hx Substance Use: No Results & Data Vital Signs Vital Signs - 24 hr 05/25/19 15:32 05/25/19 16:55 05/25/19 17:46 Temperature 37.2 C Temperature Source Oral Pulse Rate 82 Pulse Rate [Right Finger] 91 H 87 Pulse Rhythm [Right Finger] Pulse Strength [Right Finger] Respiratory Rate 18 24 20 Respiratory Effort / Characteristics Non-Labored Respiratory Depth Normal Respiratory Pattern Blood Pressure 198/122 H Blood Pressure [Right Arm] 190/100 H 186/115 H Blood Pressure Mean 147 Blood Pressure Mean [Right Arm] 130 138 Blood Pressure Position [Right Arm] Lying Lying Pulse Oximetry 95 98 98 Oxygen Delivery Method Room Air Sepsis Recent Fever Within 48 Hours No Sepsis Action Taken by Nursing No Action Required 05/25/19 18:29 05/25/19 19:17 Temperature 36.6 C Temperature Source Oral Pulse Rate Pulse Rate [Right Finger] 80 79 Pulse Rhythm [Right Finger] Regular Pulse Strength [Right Finger] Normal Respiratory Rate 22 17 Respiratory Effort / Characteristics Non-Labored Spontaneous Respiratory Depth Normal Respiratory Pattern Regular Blood Pressure Blood Pressure [Right Arm] 153/90 H 142/72 H Blood Pressure Mean Blood Pressure Mean [Right Arm] 111 95 Blood Pressure Position [Right Arm] Lying Sitting Pulse Oximetry 98 96 Oxygen Delivery Method Room Air Sepsis Recent Fever Within 48 Hours Sepsis Action Taken by Nursing Laboratory Data Result diagrams: 05/25/19 15:46 05/25/19 15:46 Lab Results 05/25/19 05/25/19 05/25/19 Range/Units 15:46 15:46 15:46 WBC 9.79 (4.8-10.8) K/uL RBC 4.25 (4.2-5.4) M/uL Hgb 13.8 (12.0-16.0) g/dL Hct 40.2 (37-47) % MCV 94.6 (80-100) fL MCH 32.5 (25-34) pg MCHC 34.3 (32-36) g/dL RDW Std Deviation 46.9 H (36.4-46.3) fL RDW Coeff of Jo 13.6 (11.5-14.5) % Plt Count 233 (130-400) K/uL MPV 8.4 (7.4-10.4) fL Immature Gran % (Auto) 0.3 % Neut % (Auto) 75.2 % Lymph % (Auto) 11.7 % Mcpherson % (Auto) 11.3 % Eos % (Auto) 1.2 % Baso % (Auto) 0.3 % Immature Gran # (Auto) 0.03 H (0.00-0.02) K/uL Neut # (Auto) 7.35 H (1.4-6.5) K/uL Lymph # (Auto) 1.15 L (1.2-3.4) K/uL Mcpherson # (Auto) 1.11 H (0.11-0.59) K/uL Eos # (Auto) 0.12 (0-0.5) K/uL Baso # (Auto) 0.03 (0-0.2) K/uL PT 11.3 (9.0-12.0) Seconds INR 1.1 (0.9-1.1) APTT 25.5 (21.0-31.0) Seconds PTT Ratio 0.9 Sodium 131 L (136-145) mmol/L Potassium 3.8 (3.5-5.1) mmol/L Chloride 101 (98-107) mmol/L Carbon Dioxide 24 (21-32) mmol/L Anion Gap 6.0 (3-11) BUN 7 (7-18) mg/dl Creatinine 0.52 L (0.6-1.2) mg/dl Est Cr Clr Drug Dosing 84.6 ml/min Est GFR ( Amer) 118.7 Est GFR (Non-Af Amer) 102.4 BUN/Creatinine Ratio 13.2 (10-20) Glucose 114 H (70-99) mg/dl Calcium 8.7 (8.5-10.1) mg/dl Phosphorus 2.9 (2.5-4.9) mg/dl Magnesium 1.9 (1.8-2.4) mg/dl Total Bilirubin 0.6 (0.2-1) mg/dl AST 20 (15-37) U/L ALT 33 (12-78) U/L Alkaline Phosphatase 113 (45-117) U/L Troponin I < 0.015 (0-0.045) ng/ml Total Protein 7.8 (6.4-8.2) gm/dl Albumin 3.5 (3.4-5.0) gm/dl Globulin 4.3 H (2.5-4.0) gm/dl Albumin/Globulin Ratio 0.8 L (0.9-2) Lipase 69 L (73-393) U/L TSH 0.545 (0.300-4.500) uIu/ml Urine Color Urine Appearance (Clear) Urine pH (4.5-7.5) Ur Specific Bly (1.000-1.030) Urine Protein (Negative) Urine Glucose (UA) (Negative) Urine Ketones (Negative) Urine Blood (Negative) Urine Nitrite (Negative) Urine Bilirubin (Negative) Urine Urobilinogen (Negative) Ur Leukocyte Esterase (Negative) Influenza Type A (PCR) (Neg) Influenza Type B (PCR) (Neg) 05/25/19 05/25/19 Range/Units 16:40 17:00 WBC (4.8-10.8) K/uL RBC (4.2-5.4) M/uL Hgb (12.0-16.0) g/dL Hct (37-47) % MCV (80-100) fL MCH (25-34) pg MCHC (32-36) g/dL RDW Std Deviation (36.4-46.3) fL RDW Coeff of Jo (11.5-14.5) % Plt Count (130-400) K/uL MPV (7.4-10.4) fL Immature Gran % (Auto) % Neut % (Auto) % Lymph % (Auto) % Mcpherson % (Auto) % Eos % (Auto) % Baso % (Auto) % Immature Gran # (Auto) (0.00-0.02) K/uL Neut # (Auto) (1.4-6.5) K/uL Lymph # (Auto) (1.2-3.4) K/uL Mcpherson # (Auto) (0.11-0.59) K/uL Eos # (Auto) (0-0.5) K/uL Baso # (Auto) (0-0.2) K/uL PT (9.0-12.0) Seconds INR (0.9-1.1) APTT (21.0-31.0) Seconds PTT Ratio Sodium (136-145) mmol/L Potassium (3.5-5.1) mmol/L Chloride (98-107) mmol/L Carbon Dioxide (21-32) mmol/L Anion Gap (3-11) BUN (7-18) mg/dl Creatinine (0.6-1.2) mg/dl Est Cr Clr Drug Dosing ml/min Est GFR ( Amer) Est GFR (Non-Af Amer) BUN/Creatinine Ratio (10-20) Glucose (70-99) mg/dl Calcium (8.5-10.1) mg/dl Phosphorus (2.5-4.9) mg/dl Magnesium (1.8-2.4) mg/dl Total Bilirubin (0.2-1) mg/dl AST (15-37) U/L ALT (12-78) U/L Alkaline Phosphatase (45-117) U/L Troponin I (0-0.045) ng/ml Total Protein (6.4-8.2) gm/dl Albumin (3.4-5.0) gm/dl Globulin (2.5-4.0) gm/dl Albumin/Globulin Ratio (0.9-2) Lipase (73-393) U/L TSH (0.300-4.500) uIu/ml Urine Color Yellow Urine Appearance Clear (Clear) Urine pH 8.5 H (4.5-7.5) Ur Specific Bly 1.028 (1.000-1.030) Urine Protein Negative (Negative) Urine Glucose (UA) Negative (Negative) Urine Ketones Negative (Negative) Urine Blood Negative (Negative) Urine Nitrite Negative (Negative) Urine Bilirubin Negative (Negative) Urine Urobilinogen Negative (Negative) Ur Leukocyte Esterase Negative (Negative) Influenza Type A (PCR) Neg for Influ A (Neg) Influenza Type B (PCR) Neg for Influ B (Neg) Administered Medications Enoxaparin Sodium (Lovenox) 40 mg SQ Q24H EL Stop: 06/24/19 19:59 Last Admin: 05/25/19 20:23 Dose: Not Given Documented by: [id number] Losartan Potassium (Cozaar) 25 mg PO QAM EL Stop: 06/24/19 19:16 Last Admin: 05/25/19 20:21 Dose: 25 mg Documented by: [id number] Metoprolol Tartrate (Lopressor) 25 mg PO BID EL Stop: 06/24/19 20:59 Last Admin: 05/25/19 20:21 Dose: 25 mg Documented by: [id number] Ticagrelor (Brilinta) 90 mg PO BID EL Stop: 06/24/19 20:59 Last Admin: 05/25/19 20:21 Dose: 90 mg Documented by: [id number] Discontinued Medications Diphenhydramine HCl (Benadryl) 12.5 mg IV NOW STA Stop: 05/25/19 17:39 Last Admin: 05/25/19 17:49 Dose: 12.5 mg Documented by: [id number] Sodium Chloride (Nss) 500 mls @ 999 mls/hr IV .Q31M ONE Stop: 05/25/19 16:18 Last Infusion: 05/25/19 16:24 Dose: 0 mls/hr Documented by: [id number] Admin: 05/25/19 15:53 Dose: 999 mls/hr Documented by: [id number] Prochlorperazine (Compazine) 1 mls @ 1 mls/min IV ONE ONE Stop: 05/25/19 17:39 Last Admin: 05/25/19 17:49 Dose: 1 mls/min Documented by: [id number] Acetaminophen (Ofirmev) 1,000 mg in 100 mls @ 400 mls/hr IV NOW STA Stop: 05/25/19 17:52 Last Infusion: 05/25/19 18:10 Dose: 0 mls/hr Documented by: [id number] Admin: 03/18/20 17:50 Dose: 400 mls/hr Documented by: [id number] Ioversol (Optiray 320 125ml) 120 ml IV ONCE PRN PRN Reason: Interaction Checking Stop: 05/29/19 16:42 Last Admin: 05/25/19 16:43 Dose: 120 ml Documented by: [id number] Labetalol HCl (Normodyne) 10 mg IV NOW STA Stop: 05/25/19 17:39 Last Admin: 05/25/19 17:50 Dose: 10 mg Documented by: [id number] Cosigned by: [id number] Blood Pressure Blood Pressure Findings: Elevated blood pressure Blood Pressure Disposition: further management by hospitalist Discharge Plan Visit Data *Final* Discharge Date/Time: 05/25/19 18:57 Chief Complaint: Chest Pain Stated Complaint: CHEST TIGHTNESS, HX OF HEART ATTACK 01/2019 ED Provider: Farrukh Mccann Discharge Problem: Hypertensive urgency, S/P drug eluting coronary stent placement, Atypical chest pain, Headache Patient Disposition: Admitted As Inpatient Discharge Instructions Interventions: ED Discharge Assessment Last Done: 05/25/19 18:57 Meds Home Medications and Allergies Home Medications Medication Instructions Recorded Confirmed Type adalimumab [Humira] 0 mg SUBCUT UD 05/25/19 05/25/19 History aspirin [Ecotrin Low Strength] 81 mg PO DAILY 05/25/19 05/25/19 History atorvastatin 40 mg PO DAILY 05/25/19 05/25/19 History denosumab [Prolia] 0 mg SUBCUT UD 05/25/19 05/25/19 History lisinopril 5 mg PO DAILY 05/25/19 05/25/19 History metoprolol tartrate 25 mg PO BID 05/25/19 05/25/19 History ticagrelor [Brilinta] 90 mg PO BID 05/25/19 05/25/19 History Allergies Allergy/AdvReac Type Severity Reaction Status Date / Time chlorhexidine Allergy Intermediate REDNESS/ITC Verified 05/25/19 16:21 ARBEN adhesive Allergy Unknown ALLERGIC Verified 05/25/19 16:21 TO TAPE, HOWEVER PAPER TAPE IS OK VICRYL Allergy Unknown "SUTURES Uncoded 05/25/19 16:21 DON'T DISSOLVE"
[2019-05-25 15:57] LABS: Basophils # (auto) 0.03 K/uL (0-0.2); Basophils % (auto) 0.3 %; Eosinophils # (auto) 0.12 K/uL (0-0.5); Eosinophils % (auto) 1.2 %; Hematocrit (blood only) 40.2 % (37-47); Hemoglobin 13.8 g/dL (12.0-16.0); Immature Granulocytes # (auto) 0.03 K/uL (0.00-0.02); Immature Granulocytes % (auto) 0.3 %; Lymphocytes # (auto) 1.15 K/uL (1.2-3.4); Lymphocytes % (auto) 11.7 %; Mean Corpuscular Hemoglobin 32.5 pg (25-34); Mean Corpuscular Hgb Conc 34.3 g/dL (32-36); Mean Corpuscular Volume 94.6 fL (80-100); Mean Platelet Volume 8.4 fL (7.4-10.4); Monocytes # (auto) 1.11 K/uL (0.11-0.59); Monocytes % (auto) 11.3 %; Neutrophils # (auto) 7.35 K/uL (1.4-6.5); Neutrophils % (auto) 75.2 %; Platelet Count 233 K/uL (130-400); RDW Coefficient of Variation 13.6 % (11.5-14.5); RDW Standard Deviation 46.9 fL (36.4-46.3); Red Blood Count 4.25 M/uL (4.2-5.4); White Blood Count 9.79 K/uL (4.8-10.8)
--- NOTE | 2019-05-25 16:04 | XRay Report ---
XR chest 1V portable HISTORY: 64 years-old Female Chest Pain acute atypical chest pain COMPARISON: Chest radiograph 02/05/2019 TECHNIQUE: Portable AP view of the chest FINDINGS: Cardiomediastinal and hilar silhouettes are within normal limits. Calcified plaque of the thoracic ao rtic arch. No pneumothorax, pleural effusion, overt pulmonary edema or airspace consolidation typical for pneumonia. Minimal linear bibasilar densities suggest atelectasis/scarring. Severe osteoarthriti s of the left glenohumeral joint. Right shoulder arthroplasty. Partially imaged cervical spinal fusio n hardware. Multilevel degenerative changes of the spine. IMPRESSION: No acute process. ACT 112: Negative or not required by law. The above report was generated using voice recognition software. It may contain grammatical, syntax o r spelling errors. Electronically signed by: Luis Alberto Gates M.D. 05/25/2019 4:03 PM
[2019-05-25 16:11] LABS: INR 1.1 (0.9-1.1); Partial Thromboplastin Ratio 0.9; Partial Thromboplastin Time 25.5 Seconds (21.0-31.0); Prothrombin Time 11.3 Seconds (9.0-12.0)
[2019-05-25 16:15] LABS: Alanine Aminotransferase 33 U/L (12-78); Albumin Level 3.5 gm/dl (3.4-5.0); Aspartate Aminotransferase 20 U/L (15-37); BUN Creatinine Ratio 13.2 (10-20); Blood Urea Nitrogen 7 mg/dl (7-18); Calcium 8.7 mg/dl (8.5-10.1); Carbon Dioxide 24 mmol/L (21-32); Chloride 101 mmol/L (98-107); Creatinine Clr Calc Pharmacy 84.6 ml/min; Est GFR (African American) 118.7; Est GFR (Non-African American) 102.4; Glucose 114 mg/dl (70-99); Lipase 69 U/L (73-393); Magnesium 1.9 mg/dl (1.8-2.4); Potassium 3.8 mmol/L (3.5-5.1); Sodium 131 mmol/L (136-145)
--- NOTE | 2019-05-25 16:21 | Electrocardiogram Report ---
Test Reason : Blood Pressure : / mmHG Vent. Rate : 085 BPM Atrial Rate : 085 BPM P-R Int : 142 ms QRS Dur : 088 ms QT Int : 404 ms P-R-T Axes : 045 045 066 degrees QTc Int : 480 ms Normal sinus rhythm Normal ECG When compared with ECG of 08-FEB-2019 06:22, Criteria for Inferior infarct are no longer Present T wave inversion no longer evident in Inferior leads T wave inversion no longer evident in Anterolateral leads Confirmed by Morgan Marley ([id number]) on 05/25/2019 4:21:08 PM Referred By: Confirmed By:Morgan Marley
[2019-05-25 16:26] LABS: Albumin Globulin Ratio 0.8 (0.9-2); Alkaline Phosphatase 113 U/L (45-117); Bilirubin,Total 0.6 mg/dl (0.2-1); Globulin 4.3 gm/dl (2.5-4.0); Phosphorus 2.9 mg/dl (2.5-4.9); Thyroid Stimulating Hormone 0.545 uIu/ml (0.300-4.500); Total Protein 7.8 gm/dl (6.4-8.2); Troponin I < 0.015 ng/ml (0-0.045)
[2019-05-25] MEDS ORDERED: OPTIRAY 320 125ml IV PRN (16:43)
[2019-05-25 17:08] LABS: Appearance Urine Clear (Clear); Bilirubin Urine Negative (Negative); Blood Urine Negative (Negative); Color Urine Yellow; Glucose Urine UA Negative (Negative); Ketones Urine Negative (Negative); Leukocyte Esterase Urine Negative (Negative); Nitrite Urine Negative (Negative); Protein Urine Negative (Negative); Specific Gravity Urine 1.028 (1.000-1.030); Urobilinogen Urine Negative (Negative); pH Urine 8.5 (4.5-7.5)
--- NOTE | 2019-05-25 17:16 | CT Scan Report ---
CT angio chest dissec wo/w con HISTORY: 64 years-old Female chest pain to back/jaw, hypertensive acute chest pain with hypertension COMPARISON: Chest radiograph of same day TECHNIQUE: CTA of the chest was obtained both with and without the use of 120 mL Optiray 320 IV contr ast. 3-D coronal and sagittal MIPS were obtained from the axial data set and submitted for review. A dose lowering technique was used consistent with the principals of JUNG. FINDINGS: CTA: Moderate cardiomegaly. No pericardial effusion. Coronary artery calcifications. No thoracic aortic an eurysm or dissection. No intramural hematoma. Moderate calcified plaque the thoracic aorta. There is a short segment ulcerative plaque involving the proximal aspect of the left subclavian artery on imag e 61 series 7. Moderate mixed plaque involves the proximal aspect of the right subclavian artery resu lting in 50% luminal narrowing, image 67 series 7. Medial course of the bilateral proximal aspects of the common carotid arteries. The opacified pulmonary artery is unremarkable. No filling defects iden tified to suggest pulmonary thromboembolic disease. CT CHEST: No large thyroid nodule or adenopathy. No pneumothorax or pleural effusion. Mild dependent subsegment al bibasilar atelectasis. Linear right lung base opacities also suggest atelectasis. No suspicious pu lmonary nodules or masses. No airspace consolidation typical for pneumonia. There is mild bronchial w all thickening. Study is mildly limited secondary to respiratory motion artifact. Secretions are noted within the mid esophagus. No acute process of the imaged upper abdomen. Soft tis sues are unremarkable. Right shoulder arthroplasty. Severe osteoarthritis of the left shoulder. Multi level degenerative changes of the spine. Partially imaged cervical spine fusion hardware. No suspicio us osseous lesions. IMPRESSION: 1. Cardiomegaly without thoracic aortic aneurysm or dissection. 2. Moderate atherosclerotic calcifications of the thoracic aorta with short segment ulcerative plaque of the proximal left subclavian artery. 3. Mixed plaque of the proximal right subclavian artery results in 50% luminal narrowing. 4. Bibasilar opacities, right greater than left suggest atelectasis. ACT 112: Negative or not required by law. The above report was generated using voice recognition software. It may contain grammatical, syntax o r spelling errors. Electronically signed by: Luis Alberto Gates M.D. 05/25/2019 5:15 PM
[2019-05-25 17:18] LABS: Influenza A virus by PCR Neg for Influ A (Neg); Influenza B virus by PCR Neg for Influ B (Neg)
[2019-05-25] MEDS ORDERED: ACETAMINOPHEN 1,000 MG/100 ML VIAL IV STA (17:38)
[2019-05-25] MEDS ORDERED: LABETALOL HCL IV 5 MG/ML 20ML IV STA (17:38)
[2019-05-25] MEDS ORDERED: PROCHLORPERAZINE 1 ML IV ONE (17:38)
[2019-05-25] MEDS ORDERED: DiphenhydrAMINE HCL 50 MG/ML VIAL IV STA (17:38)
--- NOTE | 2019-05-25 18:17 | CT Scan Report ---
CT head/brain wo con CLINICAL HISTORY: 64 years-old Female with headache. Acute headache TECHNIQUE: Multiple axial CT images of the head were obtained without contrast. A dose lowering tech nique was utilized adhering to the principles of ALARA. CT DOSE: 537.48 mGy.cm COMPARISON: None. FINDINGS: No acute intracranial hemorrhage, midline shift, intracranial mass, hydrocephalus, territorial ischem ia or abnormal extra-axial collection. Calcifications of the bilateral basal ganglia. Opacified vascu lar structures secondary to recent CTA of the chest of same day. The calvarium is intact. Moderate left mastoid effusion. Right mastoid air cells are clear. The imag ed paranasal sinuses also appear clear. Soft tissues and orbits are unremarkable. IMPRESSION: No acute intracranial abnormality. ACT 112: Negative or not required by law. The above report was generated using voice recognition software. It may contain grammatical, syntax o r spelling errors. Electronically signed by: Luis Alberto Gates M.D. 05/25/2019 6:16 PM
[2019-05-25] MEDS ORDERED: ACETAMINOPHEN 325 MG TAB PO PRN (19:17)
[2019-05-25] MEDS ORDERED: LABETALOL HCL IV 5 MG/ML 20ML IV PRN (19:17)
--- NOTE | 2019-05-25 19:17 | History & Physical Report ---
Date of Service May 25, 2019 Assessment & Plan (1) Hypertensive urgency: (2) Chest pain: (3) CAD (coronary artery disease): -admit to tele -patient presenting from home with reports of chest pain -hx acute [place] 01/2019 s/p 2 ELSY to mid RCA followed by staged PCI of 1 ELSY to proximal Circumflex -BP on presentation 198/122 -Suspect symptoms are due to hypertensive urgency -Initial troponin negative, EKG without acute ST changes -Patient evaluated in the cardiology clinic yesterday and lisinopril was changed to losartan 25 mg daily due to cough. BP at that visit was controlled. Patient has not made this adjustment yet -Received labetalol 10 mg IV in the ED with much improvement in BP, 153/90 -Continue home dose of metoprolol, discontinue lisinopril in favor of losartan 25 mg daily, starting tomorrow -Continue dual antiplatelet therapy with aspirin and Brilinta, continue statin -PRN labetalol -Continue serial cardiac enzymes -Cardiology consult, input appreciated (4) Subclavian artery disease: -CTA chest showing short segment ulcerative plaque of the proximal left subclavian artery and mixed plaque of the proximal right subclavian artery results in 50% luminal narrowing -? incidental finding -appreciate cardio input (5) Rheumatoid arthritis: -On Humira (6) DVT prophylaxis: -SQ Lovenox History of Present Illness Chief Complaint: Chest Pain Primary Care Provider: Doron Veloz, 64 year old female who presents to the ED for evaluation of chest pain. Patient reports her symptoms began "sometime this morning." She reports the pain is located midsternally. She describes the pain as pressure. There was some radiation of the pain into her left shoulder blade and neck. She rates the pain #4/10. Describes the tilley as similar to what she experienced when she had acute [place] 01/2019 however discomfort is not as severe. She reports associated nausea. No shortness of breath, diaphoresis, lightheadedness, syncopal event. She has some mild headache and denies visual changes. Reports she otherwise been feeling well recently. Denies abdominal pain, vomiting, diarrhea. No other recent illness, fevers, chills. Denies cough and sputum production. No urinary symptoms. Patient reports compliance with medications. Was seen by cardiology provider yesterday and lisinopril was changed to losartan due to reports of cough. Patient has not made that medication change yet. In the ED, BP on presentation was 198/122. Patient received labetalol 10 mg IV with improvement in BP to 153/90. Labs are unremarkable. Patient was given IV Tylenol, IV diphenhydramine, IV prochlorperazine, IVF. Allergies Allergy/AdvReac Type Severity Reaction Status Date / Time chlorhexidine Allergy Intermediate REDNESS/ITC Verified 05/25/19 16:21 ARBEN adhesive Allergy Unknown ALLERGIC Verified 05/25/19 16:21 TO TAPE, HOWEVER PAPER TAPE IS OK VICRYL Allergy Unknown "SUTURES Uncoded 05/25/19 16:21 DON'T DISSOLVE" Home Medications Home Medications Medication Instructions Recorded Confirmed Type adalimumab [Humira] 0 mg SUBCUT UD 05/25/19 05/25/19 History aspirin [Ecotrin Low Strength] 81 mg PO DAILY 05/25/19 05/25/19 History atorvastatin 40 mg PO DAILY 05/25/19 05/25/19 History denosumab [Prolia] 0 mg SUBCUT UD 05/25/19 05/25/19 History lisinopril 5 mg PO DAILY 05/25/19 05/25/19 History metoprolol tartrate 25 mg PO BID 05/25/19 05/25/19 History ticagrelor [Brilinta] 90 mg PO BID 05/25/19 05/25/19 History Past Med/Surg History Medical History CAD (coronary artery disease) Dyslipidemia (Acute) Osteoporosis (Chronic) Rheumatoid arthritis (Chronic) STEMI (ST elevation myocardial infarction) (Acute) 02/05/19- 2 ELSY mid RCA. 02/07/19 1 ELSY to proximal Circumflex Surgical History History of hysterectomy History of right shoulder replacement History of total bilateral knee replacement History of total left hip replacement S/P cervical spinal fusion Family History Mother Diabetes Heart disease Social History Preferred Language: Yemeni Communication Ability: Effective Staple Side Laster Required: No Beliefs That Will Affect Care: None marital status: Current Living Situation: Spouse Feels Safe at Home: Yes Safety Concerns: Feels Safe At This Time Smoking Status: Never smoker Hx Alcohol Use: No Hx Substance Use: No Review of Systems Review of Systems: ROS per HPI, all other systems reviewed and negative Physical Exam Constitutional: WD/WN, vitals as above Eyes: PERRL, conjunctivae normal, anicteric sclerae ENMT: external ear and nose normal, oropharynx normal Respiratory: normal respiratory effort, lungs clear to auscultation Cardiovascular: Rate/Rhythm: regular rate and regular rhythm Vessels: normal peripheral pulses Extremities: no edema Gastrointestinal (Abdomen): normal bowel sounds, soft, nontender, no hepatosplenomegaly Musculoskeletal: no cyanosis or clubbing, extremities motor strength 5/5 Skin: no rashes, warm and dry Neurologic: PERRL, EOMI, accommodation nl, no face palsy, no dysarthria Psychiatric: Orientation: alert and oriented x 3 Affect: + flat affect Results & Data Vital Signs (Past 12 Hours) Vital Signs Temp Pulse Pulse Resp BP BP Pulse Ox 05/25/19 18:29 80 22 153/90 H 98 05/25/19 17:46 87 20 186/115 H 98 05/25/19 16:55 91 H 24 190/100 H 98 05/25/19 15:32 37.2 C 82 18 198/122 H 95 Laboratory Results Short CBC 05/25/19 Range/Units 15:46 WBC 9.79 (4.8-10.8) K/uL Hgb 13.8 (12.0-16.0) g/dL Hct 40.2 (37-47) % Plt Count 233 (130-400) K/uL BMP 05/25/19 15:46 Sodium 131 L Potassium 3.8 Chloride 101 Carbon Dioxide 24 BUN 7 Creatinine 0.52 L Glucose 114 H Calcium 8.7 Cardiac Enzymes 05/25/19 Range/Units 15:46 Troponin I < 0.015 (0-0.045) ng/ml Liver Function 05/25/19 Range/Units 15:46 Total Bilirubin 0.6 (0.2-1) mg/dl AST 20 (15-37) U/L ALT 33 (12-78) U/L Alkaline Phosphatase 113 (45-117) U/L Albumin 3.5 (3.4-5.0) gm/dl Urine 05/25/19 Range/Units 17:00 Urine Color Yellow Urine Appearance Clear (Clear) Urine pH 8.5 H (4.5-7.5) Ur Specific [place] 1.028 (1.000-1.030) Urine Protein Negative (Negative) Urine Glucose (UA) Negative (Negative) Diagnostic Findings HEAD CT IMPRESSION: No acute intracranial abnormality. CHEST CTA IMPRESSION: 1. Cardiomegaly without thoracic aortic aneurysm or dissection. 2. Moderate atherosclerotic calcifications of the thoracic aorta with short segment ulcerative plaque of the proximal left subclavian artery. 3. Mixed plaque of the proximal right subclavian artery results in 50% luminal narrowing. 4. Bibasilar opacities, right greater than left suggest atelectasis. CXR IMPRESSION: No acute process. Code Status & VTE Plan Code Status Patient is a full code as per my discussion with her. VTE Prophylaxis Plan VTE Prophylaxis will be ordered: Yes Supervising Physician Co-Signing Physician Notes I have seen and examined the patient and have discussed the case with the provider above. I agree with the assessment and plan as stated. 64 yo F with h/o CAD and HTN presented with symptomatic hypertension. She was mentating clearly and CT head is negative. Physical exam was normal. There is no evidence of acute ischemia and symptoms resolved with improvement in BP after administration of labetalol. Trend cardiac enzymes overnight and appreciate additional cardiology recommendations. Low salt diet. DO Sheng
[2019-05-25] MEDS ORDERED: ENOXAPARIN INJ 40 MG/0.4 ML SYR SQ SCH (20:00)
[2019-05-25] MEDS: LOSARTAN POTASSIUM 25 MG TAB PO SCH (20:21)
[2019-05-25] MEDS: METOPROLOL TARTRATE 25 MG TAB PO SCH (20:21)
[2019-05-25] MEDS: TICAGRELOR 90 MG TAB PO SCH (20:21)
[2019-05-26 05:37] LABS: Hematocrit (blood only) 37.7 % (37-47); Hemoglobin 12.7 g/dL (12.0-16.0); Mean Corpuscular Hemoglobin 31.6 pg (25-34); Mean Corpuscular Hgb Conc 33.7 g/dL (32-36); Mean Corpuscular Volume 93.8 fL (80-100); Mean Platelet Volume 8.8 fL (7.4-10.4); Platelet Count 218 K/uL (130-400); RDW Coefficient of Variation 13.7 % (11.5-14.5); RDW Standard Deviation 47.4 fL (36.4-46.3); Red Blood Count 4.02 M/uL (4.2-5.4); White Blood Count 7.72 K/uL (4.8-10.8)
[2019-05-26 06:13] LABS: BUN Creatinine Ratio 12.1 (10-20); Calcium 7.9 mg/dl (8.5-10.1); Creatinine Clr Calc Pharmacy 34.1 ml/min; Est GFR (African American) 51.4; Est GFR (Non-African American) 44.3; Potassium 3.5 mmol/L (3.5-5.1)
[2019-05-26] MEDS: METOPROLOL TARTRATE 25 MG TAB PO SCH (07:46)
[2019-05-26] MEDS: TICAGRELOR 90 MG TAB PO SCH (07:46)
[2019-05-26] MEDS: LOSARTAN POTASSIUM 25 MG TAB PO SCH (07:47)
[2019-05-26] MEDS ORDERED: ATORVASTATIN 40 MG TAB PO SCH (09:00)
[2019-05-26] MEDS ORDERED: ASPIRIN 81 MG ECTAB PO SCH (09:00)
--- NOTE | 2019-05-26 09:47 | Electrocardiogram Report ---
Test Reason : Blood Pressure : / mmHG Vent. Rate : 064 BPM Atrial Rate : 064 BPM P-R Int : 162 ms QRS Dur : 084 ms QT Int : 474 ms P-R-T Axes : 061 020 037 degrees QTc Int : 489 ms Normal sinus rhythm Minimal voltage criteria for LVH, may be normal variant Inferior infarct Prolonged QT Borderline ECG When compared with ECG of 25-MAY-2019 15:39, Criteria for Inferior infarct is now Present Confirmed by Morgan Marley ([id number]) on 05/26/2019 9:47:15 AM Referred By: REFERRED SELF Confirmed By:Morgan Marley
[2019-05-26] MEDS ORDERED: ENOXAPARIN INJ 30 MG/0.3 ML SYR SQ SCH (10:00)
[2019-05-26] MEDS ORDERED: NSS + 20MEQ KCL 20 MEQ/1,000 ML BAG IV SCH (10:00)
[2019-05-26] MEDS ORDERED: ISOSORBIDE MONO EXTENDED REL 30 MG TABCR PO SCH (10:30)
--- NOTE | 2019-05-26 10:30 | Cardiology Consultation ---
Date of Consultation May 26, 2019 Assessment & Plan (1) Hypertensive urgency: Blood pressure much improved. Continue prior to hospital doses of metoprolol and losartan. (2) Chest pain: EKG 05/25/2019 revealed normal sinus rhythm at 85 bpm, compared to 02/08/2019, the T wave inversions previously noted in the inferior and anterior leads had resolved. EKG 05/26/2019, normal sinus rhythm 64 bpm, mild voltage criteria for LVH, age- indeterminate inferior infarction pattern with Q waves noted in inferior leads. Patient's chest discomfort did not occur with exertion, lasted several hours, and she has had 2- troponins, EKG performed x2 actually looks improved compared to those performed during her admission in February 2019. She is due for a third troponin which I have requested. She has not missed any doses of her aspirin and Brilinta, and I think if she was to have an acute stent thrombosis, she would have more prominent symptoms, definite EKG changes, and elevation in her cardiac enzymes. She does however have residual disease including diffuse disease of a small caliber LAD, and diagonal branches. I am not certain that the yield of stress testing would be helpful, as I would anticipate that she would have ischemia in this territory, and based on her previous angiogram findings, I think this vessel is best treated medically based on the prior findings. We will continue her aspirin, Brilinta, metoprolol, losartan, atorvastatin. Update resting echocardiogram. (3) CAD (coronary artery disease): As noted above. (4) Subclavian artery disease: CT of the chest was performed due to chest pain and presentation with hypertension thoracic aortic aneurysm was noted, no acute dissection. Moderate atherosclerotic plaque noted in the bilateral subclavian arteries. Is felt that the right subclavian artery has a 50% luminal narrowing. This is to be further assessed with an arterial duplex. I am hesitant to increase her atorvastatin dose, as she has underlying rheumatoid arthritis, and history of longstanding musculoskeletal complaints. Will add and LDL level to her am labs. If LDL > 70 , will likely add ezetimibe. (5) ELVIN (acute kidney injury): 0.5 to yesterday afternoon, and 1.29 today having received iodinated contrast for the CTA. She is on resuscitative IV fluids. History of Present Illness Attending Physician: Julito Del Valle MD History of Present Illness Laisha Galvez is a 64 year old female seen in cardiology consultation per the request of PAULINE Diamond for the evaluation of chest pain. Patient is well-known to the undersigned as I had followed her during her recent hospital stay that took place in late January, early February, and I have since seen her as an outpatient. She notes that since her inferior wall myocardial infarction event that took place at that time, she has been doing very well from an angina standpoint since discharge with no recurrence of her chest pain. She however has had a dry tickly cough that had been attributed to lisinopril. She is actually been seen in our office by Iban Everett PA-C 2 days ago, due to recent cough, it was advised that she discontinue lisinopril in favor of losartan. She has yet to pickler helper the new medication yet however ended yesterday, she had had on and off again sinus congestion, she felt poorly throughout the day and rested in a recliner. Later in the day she developed mild substernal chest tightness that she felt was somewhat reminiscent of her myocardial infarction pain, but to a lesser degree. She therefore presented to the emergency room for further assessment. Thus far troponin has been negative on a serial basis and she has had 2 EKGs without ischemic changes. She is comfortable in room 204 at present. Telemetry reveals sinus rhythm in the mid 60 bpm range. Her blood pressure had been elevated upon presentation at 198/122 and is trended toward her typical normal, this morning 106/60. She has not missed any recent doses of her aspirin or Brilinta. Past Medical History: Rheumatoid Arthritis Inferior wall ST segment elevation myocardial infarction, 02/05/2019, with emergent cardiac catheterization revealing acute thrombotic occlusion of the mid right coronary artery for which patient underwent PCI and 2 overlapping drug- eluting stents with excellent angiographic results. Residual multivessel non-culprit CAD noted at that time including 80% mid circumflex, 60 to 70% mid LAD, 60% late mid diffuse disease of the LAD, 2 diagonal vessels with moderate diffuse disease, the LAD is a small vessel. The patient returned to the cardiac catheterization laboratory on 02/07/2019 and received PCI, single drug-eluting stent to the mid circumflex coronary artery Dyslipidemia Allergies Allergy/AdvReac Type Severity Reaction Status Date / Time chlorhexidine Allergy Intermediate REDNESS/ITC Verified 05/25/19 16:21 ARBEN adhesive Allergy Unknown ALLERGIC Verified 05/25/19 16:21 TO TAPE, HOWEVER PAPER TAPE IS OK VICRYL Allergy Unknown "SUTURES Uncoded 05/25/19 16:21 DON'T DISSOLVE" Home Medications Home Medications Medication Instructions Recorded Confirmed Type adalimumab [Humira] 0 mg SUBCUT UD 05/25/19 05/25/19 History aspirin [Ecotrin Low Strength] 81 mg PO DAILY 05/25/19 05/25/19 History atorvastatin 40 mg PO DAILY 05/25/19 05/25/19 History denosumab [Prolia] 0 mg SUBCUT UD 05/25/19 05/25/19 History lisinopril 5 mg PO DAILY 05/25/19 05/25/19 History metoprolol tartrate 25 mg PO BID 05/25/19 05/25/19 History ticagrelor [Brilinta] 90 mg PO BID 05/25/19 05/25/19 History Patient History Medical History CAD (coronary artery disease) Dyslipidemia (Acute) Osteoporosis (Chronic) Rheumatoid arthritis (Chronic) STEMI (ST elevation myocardial infarction) (Acute) 02/05/19- 2 ELSY mid RCA. 02/07/19 1 ELSY to proximal Circumflex Surgical History History of hysterectomy History of right shoulder replacement History of total bilateral knee replacement History of total left hip replacement S/P cervical spinal fusion Family History Mother Diabetes Heart disease Social History Preferred Language: Iranian Communication Ability: Effective Barker Operator Required: No Beliefs That Will Affect Care: None marital status: Current Living Situation: Spouse Feels Safe at Home: Yes Safety Concerns: Feels Safe At This Time Smoking Status: Never smoker Hx Alcohol Use: No Hx Substance Use: No Review of Systems Review of Systems: All systems reviewed & are unremarkable except as noted in HPI & below Physical Exam Physical Exam: Temp Pulse Resp BP Pulse Ox 36.9 C 64 16 106/60 97 05/26/19 07:00 05/26/19 08:00 05/26/19 07:00 05/26/19 07:00 05/26/19 07:00 Constitutional: WD/WN, vitals as above Respiratory: normal respiratory effort, lungs clear to auscultation Cardiovascular: RRR, no murmur, no edema Chest (Breasts): normal inspection/palpation of breasts Gastrointestinal (Abdomen): normal bowel sounds, soft, nontender, no hepatosplenomegaly Neurologic: PERRL, EOMI, accommodation nl, no face palsy, no dysarthria Results & Data ([place]) Vital Signs (Past 12 Hours) Vital Signs Temp Pulse Pulse Resp BP Pulse Ox 05/26/19 08:00 64 05/26/19 07:00 36.9 C 70 16 106/60 97 05/26/19 04:00 36.4 C L 70 18 110/75 96 05/26/19 00:42 73 05/25/19 23:45 36.7 C 66 16 94/72 L 94 Laboratory Results Cardiac Enzymes 05/25/19 05/25/19 Range/Units 15:46 21:00 AST 20 (15-37) U/L Troponin I < 0.015 < 0.015 (0-0.045) ng/ml Coagulation 05/25/19 Range/Units 15:46 PT 11.3 (9.0-12.0) Seconds APTT 25.5 (21.0-31.0) Seconds CBC 05/25/19 05/26/19 Range/Units 15:46 04:58 WBC 9.79 7.72 (4.8-10.8) K/uL RBC 4.25 4.02 L (4.2-5.4) M/uL Hgb 13.8 12.7 (12.0-16.0) g/dL Hct 40.2 37.7 (37-47) % Plt Count 233 218 (130-400) K/uL Neut # (Auto) 7.35 H (1.4-6.5) K/uL Lymph # (Auto) 1.15 L (1.2-3.4) K/uL [place] # (Auto) 1.11 H (0.11-0.59) K/uL Eos # (Auto) 0.12 (0-0.5) K/uL Baso # (Auto) 0.03 (0-0.2) K/uL Comprehensive Metabolic Panel 05/25/19 05/26/19 Range/Units 15:46 04:58 Sodium 131 L 131 L (136-145) mmol/L Potassium 3.8 3.5 (3.5-5.1) mmol/L Chloride 101 100 (98-107) mmol/L Carbon Dioxide 24 24 (21-32) mmol/L BUN 7 16 D (7-18) mg/dl Creatinine 0.52 L 1.29 H D (0.6-1.2) mg/dl Glucose 114 H 97 (70-99) mg/dl Calcium 8.7 7.9 L (8.5-10.1) mg/dl AST 20 (15-37) U/L ALT 33 (12-78) U/L Alkaline Phosphatase 113 (45-117) U/L Total Protein 7.8 (6.4-8.2) gm/dl Albumin 3.5 (3.4-5.0) gm/dl Intake and Output 05/25/19 05/26/19 05/26/19 22:59 06:59 14:59 Intake Total 650 / 700 50 / 700 Balance 650 / 700 50 / 700 Intake: IV 600 / 600 OFIRMEV 1,000 mg In 100 ml @ 100 / 100 400 mls/hr IV NOW STA Rx#: [id number] Nss 500 ml @ 999 mls/hr IV . 500 / 500 Q31M ONE Rx#:[id number] Oral 50 / 100 50 / 100 Other: Weight 51.[address] angiogram revealed cardiomegaly without thoracic aortic aneurysm or dissection Moderate atherosclerotic calcification of the thoracic aorta with a short segment of ulcerative plaque in the proximal left subclavian artery, mixed plaque in the right subclavian artery, results of 50% luminal narrowing CT of the brain, no acute intracranial pathology Medications Administered Current Inpatient Medications Acetaminophen (Tylenol) 650 mg PO Q4H PRN PRN Reason: Pain or Fever Stop: 06/24/19 19:16 Aspirin (Ecotrin Ectab) 81 mg PO DAILY [facility] Stop: 06/25/19 08:59 Last Admin: 05/26/19 07:47 Dose: 81 mg Documented by: Atorvastatin Calcium (Lipitor) 40 mg PO DAILY [facility] Stop: 06/25/19 08:59 Last Admin: 05/26/19 07:47 Dose: 40 mg Documented by: Enoxaparin Sodium (Lovenox) 30 mg SQ Q24H [facility] Stop: 06/25/19 09:59 Last Admin: 05/26/19 09:12 Dose: 30 mg Documented by: Potassium Chloride/Sodium Chloride (Normal Saline W/20 Meq Kcl) 20 meq in 1,000 mls @ 125 mls/hr IV .Q8H [facility] Stop: 05/27/19 01:59 Last Admin: 05/26/19 09:55 Dose: 125 mls/hr Documented by: Isosorbide Mononitrate (Imdur Extended Rel) 15 mg PO QAM [facility] Stop: 06/25/19 10:29 Labetalol HCl (Normodyne) 10 mg IV Q6H PRN PRN Reason: HTN Stop: 06/24/19 19:16 Losartan Potassium (Cozaar) 25 mg PO QAM [facility] Stop: 06/24/19 19:16 Last Admin: 05/26/19 07:47 Dose: 25 mg Documented by: Metoprolol Tartrate (Lopressor) 25 mg PO BID [facility] Stop: 06/24/19 20:59 Last Admin: 05/26/19 07:46 Dose: 25 mg Documented by: Ticagrelor (Brilinta) 90 mg PO BID [facility] Stop: 06/24/19 20:59 Last Admin: 05/26/19 07:46 Dose: 90 mg Documented by:
[2019-05-26] MEDS ORDERED: SODIUM CHLORIDE 0.9% 500 ML IV SCH (10:45)
--- NOTE | 2019-05-26 11:20 | Hospitalist Progress Note ---
Date of Service May 26, 2019 Assessment & Plan (1) Hypertensive urgency: Noted to have very high blood pressure on admission of systolic 198 over diastolic 122 Did not have any headache or any other symptoms except chest pain Blood pressure seems to be controlled with her usual medications We will continue her current medications (2) Chest pain: No more chest pain since admission Serial cardiac enzymes and EKG remain unremarkable Echo has been pending (3) CAD (coronary artery disease): -hx acute [place] 01/2019 s/p 2 ELSY to mid RCA followed by staged PCI of 1 ELSY to proximal Circumflex -Suspect symptoms are due to hypertensive urgency -Patient evaluated in the cardiology clinic yesterday and lisinopril was changed to losartan 25 mg daily due to cough. BP at that visit was controlled. Patient has not made this adjustment yet -Received labetalol 10 mg IV in the ED with much improvement in BP, 153/90 -Continue home dose of metoprolol, discontinue lisinopril in favor of losartan 25 mg daily, starting tomorrow -Continue dual antiplatelet therapy with aspirin and Brilinta, continue statin -No more cardiac symptoms -Appreciate cardiology input and recommendation (4) Subclavian artery disease: -CTA chest showing short segment ulcerative plaque of the proximal left subclavian artery and mixed plaque of the proximal right subclavian artery results in 50% luminal narrowing -We will have arterial duplex -Not having any symptoms (5) Rheumatoid arthritis: -On Humira (6) DVT prophylaxis: -SQ Lovenox (7) ELVIN (acute kidney injury): Creatinine went up to 1.4 range in the hospital She has not been drinking enough since yesterday We will give 2 L of normal saline intravenously Plan to repeat PRP in the afternoon Likely discharge this afternoon if the blood pressure remains stable , echo is unremarkable and no more cardiac symptoms Admission and Anticipated Discharge Date Admission Date: May 25, 2019 Subjective The patient was seen and examined in telemetry floor She was admitted with chest pain and hypertensive urgency with history of significant CAD No more pain since admission She denies any other symptoms whatsoever Review of Systems Review of Systems: All systems reviewed and are unremarkable except as noted below Physical Exam Physical Exam: Lying in bed comfortably Constitutional: well developed and well nourished; no acute distress and not ill appearing Eyes: PERRL, conjunctivae normal, anicteric sclerae ENMT: external ear and nose normal, oropharynx normal Neck: trachea midline, no thyromegaly Respiratory: normal respiratory effort; no respiratory distress Auscultation: lungs clear to auscultation bilaterally Cardiovascular: Rate/Rhythm: regular rate and regular rhythm Heart Sounds: no murmur Gastrointestinal (Abdomen): Inspection/Auscultation: abdomen normal to inspection and normal bowel sounds Percussion/Palpation: abdomen soft; abdomen nontender Musculoskeletal: No acute arthritis involving any joints Neurologic: moves all extremities; no focal motor deficits Lymphatic: no cervical or axillary lymphadenopathy Results & Data ([facility]) Vital Signs (Past 12 Hours) Vital Signs Temp Pulse Pulse Resp BP Pulse Ox 05/26/19 11:03 36.3 C L 68 16 100/62 95 05/26/19 08:00 64 05/26/19 07:00 36.9 C 70 16 106/60 97 05/26/19 04:00 36.4 C L 70 18 110/75 96 05/26/19 00:42 73 05/25/19 23:45 36.7 C 66 16 94/72 L 94 Laboratory Results Short CBC 05/25/19 05/26/19 Range/Units 15:46 04:58 WBC 9.79 7.72 (4.8-10.8) K/uL Hgb 13.8 12.7 (12.0-16.0) g/dL Hct 40.2 37.7 (37-47) % Plt Count 233 218 (130-400) K/uL BMP 05/25/19 05/26/19 15:46 04:58 Sodium 131 L 131 L Potassium 3.8 3.5 Chloride 101 100 Carbon Dioxide 24 24 BUN 7 16 D Creatinine 0.52 L 1.29 H D Glucose 114 H 97 Calcium 8.7 7.9 L Cardiac Enzymes 05/25/19 05/25/19 Range/Units 15:46 21:00 Troponin I < 0.015 < 0.015 (0-0.045) ng/ml Liver Function 05/25/19 Range/Units 15:46 Total Bilirubin 0.6 (0.2-1) mg/dl AST 20 (15-37) U/L ALT 33 (12-78) U/L Alkaline Phosphatase 113 (45-117) U/L Albumin 3.5 (3.4-5.0) gm/dl Urine 05/25/19 Range/Units 17:00 Urine Color Yellow Urine Appearance Clear (Clear) Urine pH 8.5 H (4.5-7.5) Ur Specific [place] 1.028 (1.000-1.030) Urine Protein Negative (Negative) Urine Glucose (UA) Negative (Negative) Medications Administered Current Inpatient Medications Acetaminophen (Tylenol) 650 mg PO Q4H PRN PRN Reason: Pain or Fever Stop: 06/24/19 19:16 Aspirin (Ecotrin Ectab) 81 mg PO DAILY [facility] Stop: 06/25/19 08:59 Last Admin: 05/26/19 07:47 Dose: 81 mg Documented by: Atorvastatin Calcium (Lipitor) 40 mg PO DAILY [facility] Stop: 06/25/19 08:59 Last Admin: 05/26/19 07:47 Dose: 40 mg Documented by: Enoxaparin Sodium (Lovenox) 30 mg SQ Q24H [facility] Stop: 06/25/19 09:59 Last Admin: 05/26/19 09:12 Dose: 30 mg Documented by: Potassium Chloride/Sodium Chloride (Normal Saline W/20 Meq Kcl) 20 meq in 1,000 mls @ 125 mls/hr IV .Q8H [facility] Stop: 05/27/19 01:59 Last Admin: 05/26/19 09:55 Dose: 125 mls/hr Documented by: Isosorbide Mononitrate (Imdur Extended Rel) 15 mg PO QAM [facility] Stop: 06/25/19 10:29 Labetalol HCl (Normodyne) 10 mg IV Q6H PRN PRN Reason: HTN Stop: 06/24/19 19:16 Losartan Potassium (Cozaar) 25 mg PO QAM [facility] Stop: 06/24/19 19:16 Last Admin: 05/26/19 07:47 Dose: 25 mg Documented by: Metoprolol Tartrate (Lopressor) 25 mg PO BID [facility] Stop: 06/24/19 20:59 Last Admin: 05/26/19 07:46 Dose: 25 mg Documented by: Ticagrelor (Brilinta) 90 mg PO BID [facility] Stop: 06/24/19 20:59 Last Admin: 05/26/19 07:46 Dose: 90 mg Documented by:
[2019-05-26 11:41] LABS: LDL Cholesterol Direct 74 mg/dl; Troponin I < 0.015 ng/ml (0-0.045)
--- NOTE | 2019-05-26 11:57 | Communication Note ---
Date of Service: May 26, 2019 Repeat troponin from this morning at 458 was normal at less than 0.015. LDL cholesterol, direct, 74 mg/dL. LDL cholesterol is certainly improved compared to the measurement that she had at the time of her prior admission, but given atherosclerotic vascular disease in the aorta, subclavian vessels, and coronary heart disease, will add ezetimibe 10 mg daily.
[2019-05-26] MEDS ORDERED: EZETIMIBE 10 MG TABLET PO SCH (12:00)
[2019-05-26 17:39] LABS: BUN Creatinine Ratio 19.9 (10-20); Calcium 7.6 mg/dl (8.5-10.1); Creatinine Clr Calc Pharmacy 73.4 ml/min; Est GFR (African American) 113.2; Est GFR (Non-African American) 97.7; Potassium 4.4 mmol/L (3.5-5.1)
--- NOTE | 2019-05-27 08:53 | Discharge Summary ---
Date of Service May 27, 2019 Admission HPI Per Admitting Provider 64 year old female who presents to the ED for evaluation of chest pain. Patient reports her symptoms began "sometime this morning." She reports the pain is located midsternally. She describes the pain as pressure. There was some radiation of the pain into her left shoulder blade and neck. She rates the pain #4/10. Describes the tilley as similar to what she experienced when she had acute MD 01/2019 however discomfort is not as severe. She reports associated nausea. No shortness of breath, diaphoresis, lightheadedness, syncopal event. She has some mild headache and denies visual changes. Reports she otherwise been feeling well recently. Denies abdominal pain, vomiting, diarrhea. No other recent illness, fevers, chills. Denies cough and sputum production. No urinary symptoms. Patient reports compliance with medications. Was seen by cardiology provider yesterday and lisinopril was changed to losartan due to reports of cough. Patient has not made that medication change yet. In the ED, BP on presentation was 198/122. Patient received labetalol 10 mg IV with improvement in BP to 153/90. Labs are unremarkable. Patient was given IV Tylenol, IV diphenhydramine, IV prochlorperazine, IVF. Admission Exam Per Admitting Provider Constitutional: WD/WN, vitals as above Eyes: PERRL, conjunctivae normal, anicteric sclerae ENMT: external ear and nose normal, oropharynx normal Respiratory: normal respiratory effort, lungs clear to auscultation Cardiovascular: Rate/Rhythm: regular rate and regular rhythm Vessels: polo l peripheral pulses Extremities: no edema Gastrointestinal (Abdomen): normal bowel sounds, soft, nontender, no hepatosplenomegaly Musculoskeletal: no cyanosis or clubbing, extremities motor strength 5/5 Skin: no rashes, warm and dry Neurologic: PERRL, EOMI, accommodation nl, no face palsy, no dysarthria Psychiatric: Orientation: alert and oriented x 3 Affect: + flat affect Principal Diagnosis Hypertensive urgency, chest pain-no ACS, CAD, asymptomatic right subclavian stenosis Discharge Exam Constitutional well developed and well nourished; no acute distress and not ill appearing Eyes PERRL, conjunctivae normal, anicteric sclerae ENMT external ear and nose normal, oropharynx normal Neck trachea midline, no thyromegaly Respiratory normal respiratory effort; no respiratory distress Auscultation: lungs clear to auscultation bilaterally Cardiovascular Rate/Rhythm: regular rate and regular rhythm Heart Sounds: no murmur Gastrointestinal (Abdomen) Inspection/Auscultation: abdomen normal to inspection and normal bowel sounds Percussion/Palpation: abdomen soft; abdomen nontender Neurologic moves all extremities; no focal motor deficits Lymphatic no cervical or axillary lymphadenopathy Discharge Data Allergies Allergy/AdvReac Type Severity Reaction Status Date / Time chlorhexidine Allergy Intermediate REDNESS/ITC Verified 05/25/19 16:21 ARBEN adhesive Allergy Unknown ALLERGIC Verified 05/25/19 16:21 TO TAPE, HOWEVER PAPER TAPE IS OK VICRYL Allergy Unknown "SUTURES Uncoded 05/25/19 16:21 DON'T DISSOLVE" Consultations 05/25/19 17:38 ED Decision to Admit Stat 05/25/19 19:17 Consult Cardiology Routine Ordered Studies 05/25/19 15:47 CT angio chest dissec wo/w con Stat 05/25/19 17:40 CT head/brain wo con Stat Hospital Course (1) Hypertensive urgency: Noted to have very high blood pressure on admission of systolic 198 over diastolic 122 Did not have any headache or any other symptoms except chest pain Blood pressure seems to be controlled with her usual medications We will continue her current medications (2) Chest pain: No more chest pain since admission Serial cardiac enzymes and EKG remain unremarkable Echo has been pending (3) CAD (coronary artery disease): -hx acute MD 01/2019 s/p 2 ELSY to mid RCA followed by staged PCI of 1 ELSY to proximal Circumflex -Suspect symptoms are due to hypertensive urgency -Patient evaluated in the cardiology clinic yesterday and lisinopril was changed to losartan 25 mg daily due to cough. BP at that visit was controlled. Patient has not made this adjustment yet -Received labetalol 10 mg IV in the ED with much improvement in BP, 153/90 -Continue home dose of metoprolol, discontinue lisinopril in favor of losartan 25 mg daily, starting tomorrow -Continue dual antiplatelet therapy with aspirin and Brilinta, continue statin -No more cardiac symptoms -Appreciate cardiology input and recommendation (4) Subclavian artery disease: -CTA chest showing short segment ulcerative plaque of the proximal left subclavian artery and mixed plaque of the proximal right subclavian artery results in 50% luminal narrowing -We will have arterial duplex -Not having any symptoms (5) Rheumatoid arthritis: -On Humira (6) DVT prophylaxis: -SQ Lovenox (7) ELVIN (acute kidney injury): Creatinine went up to 1.4 range in the hospital She has not been drinking enough since yesterday We will give 2 L of normal saline intravenously Plan to repeat PRP in the afternoon Likely discharge this afternoon if the blood pressure remains stable , echo is unremarkable and no more cardiac symptoms Total Time Total Time Spent Total Time Spent (In Minutes): 35 minutes Total Time Includes: Examination of the Patient, Discharge Planning, Medication Reconciliation and Communication With Other Providers Discharge Plan Discharge Items Patient Disposition: Home - Self-Care Reason For Visit: HTN URGENCY Discharge Diagnosis: Hypertensive urgency, chest pain-no ACS, CAD, asymptomatic right subclavian stenosis Condition on Discharge: Good Activity: Resume your previous activity Non-emergency contact: Primary Care Provider Call non-emergency contact if: you have any medication questions and your symptoms worsen Follow-up/Referrals: Doron Veloz DO [Primary Care Provider] - 06/01/19 11:05 am Diet: Heart Healthy Addtl Attending Provider Instructions: Please take your medications as advised Maintain at least 6 feet distention from sick persons with fever and cough Stand-Alone Forms: [facility] Sm[facility] Cessation Medications and DC Order Prescriptions: New isosorbide mononitrate 30 mg Tablet Extended Release 24 Hr 30 mg PO UD 30 Days Qty: 30 RF: 0 ezetimibe [Zetia] 10 mg Tablet 10 mg PO QAM 30 Days Qty: 30 RF: 0 losartan 25 mg Tablet 25 mg PO QAM 30 Days Qty: 30 RF: 0 Continued atorvastatin 40 mg tablet 40 mg PO DAILY RF: 0 metoprolol tartrate 25 mg tablet 25 mg PO BID RF: 0 Prolia 60 mg/mL Syringe 0 mg SUBCUT UD RF: 0 Brilinta 90 mg tablet 90 mg PO BID RF: 0 Humira 10 mg/0.2 mL Syringe Kit 0 mg SUBCUT UD RF: 0 aspirin [Ecotrin Low Strength] 81 mg tablet,delayed release (DR/EC) 81 mg PO DAILY RF: 0 Discontinued lisinopril 5 mg tablet 5 mg PO DAILY RF: 0 Discharge Orders: Discharge Order (Routine); Ordered 05/26/19 Ordered By: Julito Cueto/Other Patient Handouts: Ezetimibe Tablets, Isosorbide Mononitrate extended-release tablets Admission Data Admit Date/Time: 05/25/19 19:18 Attending Provider: Julito Del Valle Admit Provider: Miryam Patricio Primary Care Provider: Doron Veloz Other Providers: Miryam Patricio ; Josesito Quiroz Other Interventions: Discharge Summary Assessment (RN) Last Done: 05/26/19 18:09 DC Date/Time DO NOT enter until pt leaves facility: 05/26/19 19:02
== END 2019-05-26 19:02 | disposition home or self-care (01) ==
LOC: ED 15:30 → INTOOBSV 18:07 → 2E 18:07 → SUATTDRO 19:18

== ENCOUNTER 2022-12-15 06:06 | Inpatient (IN) ==
--- NOTE | 2022-11-24 12:49 | PAT Medication Instructions ---
Medication Instructions Date of Service November 24, 2022 Home Medications aspirin 81 mg tablet,delayed release (Ecotrin Low Strength) 81 mg PO HS denosumab 60 mg/mL subcutaneous syringe (Prolia) 60 mg subcut UD metoprolol tartrate 25 mg tablet 25 mg PO BID Co Q-10 1 cap PO QAM atorvastatin 80 mg tablet 80 mg PO QAM calcium 600 mg capsule 600 mg PO BID cholecalciferol (vitamin D3) 50 mcg (2,000 unit) capsule (Vitamin D3) 50 mcg PO HS ezetimibe 10 mg tablet 10 mg PO QAM isosorbide mononitrate 30 mg tablet,extended release 24 hr 30 mg PO QAM krill oil 1 cap PO QAM losartan 25 mg tablet 25 mg PO QAM ondansetron 4 mg disintegrating tablet 4 mg PO UD PRN taken with tramadol when taken prednisone 10 mg tablet 10 mg PO UD PRN Inflammation prednisone 5 mg tablet 5 mg PO UD PRN Inflammation tramadol 50 mg tablet 50 - 100 mg PO TID PRN Pain upadacitinib 15 mg tablet,extended release 24 hr (Rinvoq) 15 mg PO HS vitamin B complex 1 tab PO HS Medication Instructions: Continue as directed denosumab 60 mg/mL subcutaneous syringe (Prolia) 60 mg subcut UD prednisone 10 mg tablet 10 mg PO UD PRN Inflammation prednisone 5 mg tablet 5 mg PO UD PRN Inflammation ASK your prescriber and surgeon aspirin 81 mg tablet,delayed release (Ecotrin Low Strength) 81 mg PO HS STOP taking 2 weeks before surgery Co Q-10 1 cap PO QAM krill oil 1 cap PO QAM DO NOT take the morning of surgery calcium 600 mg capsule 600 mg PO BID losartan 25 mg tablet 25 mg PO QAM Take morning of surgery With a small sip of water, OTHERWISE NOTHING TO EAT OR DRINK AFTER MIDNIGHT: atorvastatin 80 mg tablet 80 mg PO QAM ezetimibe 10 mg tablet 10 mg PO QAM metoprolol tartrate 25 mg tablet 25 mg PO BID isosorbide mononitrate 30 mg tablet,extended release 24 hr 30 mg PO QAM tramadol 50 mg tablet 50 - 100 mg PO TID PRN Pain (if needed) ondansetron 4 mg disintegrating tablet 4 mg PO UD PRN taken with tramadol when taken (if needed) Take evening before surgery cholecalciferol (vitamin D3) 50 mcg (2,000 unit) capsule (Vitamin D3) 50 mcg PO HS vitamin B complex 1 tab PO HS metoprolol tartrate 25 mg tablet 25 mg PO BID tramadol 50 mg tablet 50 - 100 mg PO TID PRN Pain (if needed) calcium 600 mg capsule 600 mg PO BID ondansetron 4 mg disintegrating tablet 4 mg PO UD PRN taken with tramadol when taken (if needed) Other Notes Check with prescriber for instructions: upadacitinib 15 mg tablet,extended release 24 hr (Rinvoq) 15 mg PO HS If you have any questions please call us at [phone] or [phone] or [phone] or [phone]
--- NOTE | 2022-11-26 09:27 | Anesthesiology Consultation ---
Date of Service November 26, 2022 Assessment & Plan (1) Encounter for pre-operative examination: Chart Review Chart Review: Acceptable Risk for Surgery (pending PCP clearance 11/28/22) and Patient seen in Pre Admission Testing - Awaiting PCP clearance 11/28/22 ([facility] Pt requesting manual BPs- did explain this was no possible perioperatively but could do manual BPs pre and post operatively. ASU informed and voices understanding- will document in OR notification. Pt states that with previous surgery- machine BP cuff caused her BP to elevate to emergently high BP level (did not have stroke) in post operative area. Was given medications to improve BP but this caused significant hypotension in which she as admitted for four days to try to correct. Pt would like to anesthesia to know- somewhat sensitive to BP medications. Did find records from 2015 surgery (See below) ACDF C3-4 with anterior instrumentation 2-3-15= Done under GA with Grade 2 view with Glidescope #4. ETT #7.0. PACU: BP elevated. Labetalol given. (No significant issues noted to anesthesia progress note and medical progress note during admission) Chlorhexidine allergy- no wipes given at PAT appt Per PAT appt on 11/26/22, no recent illness/disease exposures, illness related symptoms, or recent illness/disease positive tests. Will leave to surgeon's discretion if preop Covid testing needed Patient seen by cardiology 11/24/22= patient seen for preop evaluation. EKG done in officeshowed poor R wave progression across the precordium which is unchanged from previous EKGs. Stable coronary artery disease. Previous inferior wall myocardial infarction interrupted with coronary stents in the rig ht coronary artery and further stents in the left circumflex artery in a staged procedure in 2019. Using the Jorge criteria the patient's risk for the surgery is 0.9%. She is currently clinically stable and optimally managed medically. She should proceed to spinal surgery with an acceptable low risk of cardiovascular event. Teaching & Discussion Pre-Anesthesia Teaching/Discussion Notes: Instructed NPO after midnight before surgery,except medications with 15 cc of water. Medication instructions provided according to the PAT guidelines. History Surgery Operation Date: 12/10/22 13:15 Proposed Procedures p C3-C4 Anterior Cervical Discectomy and Fusion, C2-C3 Hardware Removal - David Valero, Height/Weight Height: 4 ft 10 in Weight: 54.1 kg Allergies Allergy/AdvReac Type Severity Reaction Status Date / Time chlorhexidine Allergy Intermediate REDNESS/ITC Verified 05/25/19 16:21 ARBEN adhesive Allergy Unknown ALLERGIC Verified 05/25/19 16:21 TO TAPE, HOWEVER PAPER TAPE IS OK VICRYL Allergy Unknown "SUTURES Uncoded 05/25/19 16:21 DON'T DISSOLVE" Medications Home Medications Medication Instructions Recorded Confirmed Last Taken aspirin 81 mg tablet,delayed 81 mg PO HS 05/25/19 11/21/22 Unknown release (Ecotrin Low Strength) denosumab 60 mg/mL subcutaneous 60 mg subcut UD 05/25/19 11/21/22 Unknown syringe (Prolia) metoprolol tartrate 25 mg tablet 25 mg PO BID 05/25/19 11/21/22 05/25/19 Co Q-10 1 cap PO QAM 11/21/22 11/21/22 Unknown atorvastatin 80 mg tablet 80 mg PO QAM 11/21/22 11/21/22 Unknown calcium 600 mg capsule 600 mg PO BID 11/21/22 11/21/22 Unknown cholecalciferol (vitamin D3) 50 50 mcg PO HS 11/21/22 11/21/22 Unknown mcg (2,000 unit) capsule (Vitamin D3) ezetimibe 10 mg tablet 10 mg PO QAM 11/21/22 11/21/22 Unknown isosorbide mononitrate 30 mg 30 mg PO QAM 11/21/22 11/21/22 Unknown tablet,extended release 24 hr krill oil 1 cap PO QAM 11/21/22 11/21/22 Unknown losartan 25 mg tablet 25 mg PO QAM 11/21/22 11/21/22 Unknown ondansetron 4 mg disintegrating 4 mg PO UD PRN taken with tramadol 11/21/22 11/21/22 Unknown tablet when taken prednisone 10 mg tablet 10 mg PO UD PRN Inflammation 11/21/22 11/21/22 Unknown prednisone 5 mg tablet 5 mg PO UD PRN Inflammation 11/21/22 11/21/22 Unknown tramadol 50 mg tablet 50 - 100 mg PO TID PRN Pain 11/21/22 11/21/22 Unknown upadacitinib 15 mg tablet,extended 15 mg PO HS 11/21/22 11/21/22 Unknown release 24 hr (Rinvoq) vitamin B complex 1 tab PO HS 11/21/22 11/21/22 Unknown Past Medical History Medical History 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> difficulty opening mouth (small opening)- usually needs ped iatric ETT/scope per patient CAD (coronary artery disease) s/p ELSY x 2 to mid RCA 02/05/19; s/p ELSY x 1 to pCx 02/07/19 Dyslipidemia History of anesthesia reaction - Pt requesting manual BP checks only - had episode possibly back in 2014 after surgery- machine BP cuff caused BP to increase to emergently elevated levels in post op area- was given antihypertensives which then caused severe hypotension- patient was admitted x 4 days in attempts to get BP back up to baseline (usually has low normal BP per patient) Osteoporosis Rheumatoid arthritis STEMI (ST elevation myocardial infarction) 02/05/19- 2 ELSY mid RCA. 02/07/19 1 ELSY to proximal Circumflex Exercise / Class Metabolic Activity II 4-5 Yardwork/Stairs/Walk up hill (one flight of stairs- no chest pain or SOB ) Past Family History Family History Mother Diabetes Heart disease Past Surgical History Surgical History History of cardiac cath 2019, for [place], [facility], x3 stents; f/u eleanor nelson and [facility] History of esophagogastroduodenoscopy (EGD) History of heart artery stent 2019, for [place], [facility], x3 stents; f/u eleanor nelson and eleanor peoples History of hysterectomy w/appendectomy History of right shoulder replacement History of total bilateral knee replacement History of total left hip replacement History of total shoulder replacement left Hx of colonoscopy S/P cervical spinal fusion Past Anesthesia History No Hx of Anesthesia Complications (with exception to machine BP checks and severe HTN/hypotension ) and No Family Hx of Anesthesia Complications History of PONV No Hx of PONV and No Hx of Motion Sickness Social History Smoking Status: Never smoker Do You Dip or Chew Tobacco: Yes (hx as child) Hx Alcohol Use: No Hx Substance Use: No substance use type: does not use Review of Systems - Hx of snoring - no witnessed apnea - no hx of sleep study - Hx of PE - s/p childbirth- s/p blood thinners x 1.5 years (Coumadin) - no issues since that time Patient denies chest pain, shortness of breath, dyspnea on exertion, reflux, cough, wheezing, palpitations. No hx of seizures, stroke. No hx of blood transfusions Physical Exam Vital Signs VITALS BP 122/70 (manually on recheck- initial manual BP 170/98) P 58 TEMP 98.1 SP02 96% RESP 16 Constitutional no acute distress ENMT Mouth: + small oral opening; no TMJ clicking Thyromental Distance: > or= 3.5 Finger Breadths (3.5) Mallampati Class: II Missing bottom side teeth and molars Top denture (full) Neck + limited neck extension (significant) Respiratory normal respiratory effort; no respiratory distress Auscultation: lungs clear to auscultation bilaterally; no wheezes Cardiovascular Rate/Rhythm: regular rate and regular rhythm Heart Sounds: no murmur Vessels: no carotid bruit Musculoskeletal Spine: + pain with cervical ROM Extremities: extremities normal to inspection Psychiatric Orientation: alert Lab Results Anesthesia Preop Results Results Anesthesia Widget: WBC 5.23 K/ul (4.8-10.8) 11/26/22 Hgb 11.7 g/dl (12.0-16.0) L 11/26/22 Hct 33.8 % (37.0-47.0) L 11/26/22 Plt 263 K/uL (130-400) 11/26/22 Na 137 mmol/L (136-145) 11/26/22 K 4.0 mmol/L (3.5-5.1) 11/26/22 Cl 108 mmol/L (98-107) H 11/26/22 CO2 28 mmol/L (21-32) 11/26/22 BUN 8 mg/dl (6-23) 11/26/22 Creat 0.57 mg/dl (0.6-1.2) L 11/26/22 Glucose Level 92 mg/dl (70-99(Fasting)) 11/26/22 PT 11.8 Seconds (9.0-12.0) 11/26/22 PTT 25.5 Seconds (21.0-31.0) 11/26/22 INR 1.1 (0.9-1.1) 11/26/22 Urine Color Yellow 11/26/22 Urine Appearance Clear (Clear) 11/26/22 Urine pH 7.0 (4.5-7.5) 11/26/22 Urine Specific [place] 1.011 (1.000-1.030) 11/26/22 Urine Protein Negative (Negative) 11/26/22 Urine Glucose (UA) Negative (Negative) 11/26/22 Urine Ketones Negative (Negative) 11/26/22 Urine Blood Trace (Negative) H 11/26/22 Urine Nitrite Negative (Negative) 11/26/22 Urine Bilirubin Negative (Negative) 11/26/22 Urine Urobilinogen Negative (Negative) 11/26/22 Urine Leukocyte Esterase Trace (Negative) H 11/26/22 Urine WBC (Auto) 10-30 /hpf (0-5) H 11/26/22 Urine RBC (Auto) 0-4 /hpf (0-4) 11/26/22 Urine Hyaline Casts (Auto) 0 /lpf (0-5) 11/26/22 Urine Epithelial Cells (Auto) 5-10 /lpf (0-5) H 11/26/22 Urine Bacteria (Auto) 2+ (Negative) H 11/26/22 Blood Type AB Negative 11/26/22 Antibody Screen NEGATIVE 11/26/22 Testing Laboratory Results Surgeon's office informed of abnormal UA - will leave results to surgeon's discretion on how to proceed Electrocardiogram Date: 11/24/22 Findings: + SB @ (58bpm ) Cannot rule out anterior infarct, age undetermined When compared to EKG from Jan 14, 2022- no significant change was found per cardio Chest X-Ray Date: 09/16/22 Findings: + NAD Echocardiogram Date: 05/26/19 EF: 55-60% LV Function: normal Other Findings: + LVH (mild/concentric ) and + diastolic dysfunction (Grade I ) Small sized inferior wall abnormality with akinesis of basal inferior segment AV sclerosis is mild without significant AV stenosis Akinesis of basal inferior hunt consistent with the patient's history of previous right coronary artery territory infarction. Compared to the prior study dated 02/05/2019there has been an interval improvement in the LV systolic function Cardiac Catheterization Date: 02/05/19 Findings: LM -Short, medium caliber, luminal irregularities LAD -small to medium caliber, calcified, 60 to 70% mid segment disease, 60% latemid diffuse disease. 2 small diagonals with moderate diffuse disease Circumflex -medium caliber, 80% mid stenosis, 40% latemid stenosis, 50% distal stenosis at takeoff of OM 2. 50 to 60% proximal stenosis of medium caliber, terminal, bifurcating left PLB. RCAlarge caliber, dominant, 100% acute mid occlusion Summary: 1. Acute 100% mid RCA occlusion 2. Severe multi--vessel non-culprit coronary artery disease -80% mid circumflex 60 to 70% mid LAD 3. Normal intracardiac filling pressure 4. Transient bradycardia/hypotension with reperfusion which responded to atropine/IV fluids. 5. Successful PCI of mid RCA occlusion with 2 overlapping drug-eluting stents (4.0 x 8, 3.5 x 28 Xience Palmira). Cardiac Catheterization 02/07/19: Summary: 1. Successful PCI of proximal to mid circumflex with single drug-eluting stent (3.0 x 15 mm [place]; postdilated with 3.25 NC). Recommendations: To PCU for continued monitoring On aspirin, ticagrelor, continue dual-antiplatelet therapy for at least one year Continue statin, and ASCVD risk factor modification Cervical Spine Date: 11/26/22 FINDINGS: Three lateral views of the cervical spine are obtained with the patient in neutral, lateral, and extension positions. The skeletal structures are osteopenic. There is no radiographic evidence of acute fracture on these lateral views. Vertebral body height appears maintained throughout the cervical spine. There is straightening of the cervical lordosis with reversal of the lower cervical region. The atlantodens articulation appears maintained. There is minimal anterolisthesis at C4-C5. This increases to 5 mm on the flexion images. Alignment is otherwise maintained. The spinous processes appear intact. There is postsurgical change from discectomy at C3-C4 with anterior fusion at this level. Moderate to advanced disc space narrowing seen at the remaining cervical levels. Anterior osteophytes are seen throughout. Posterior disc osteophyte complexes are seen in the lower cervical region. There is multilevel facet arthropathy. The prevertebral soft tissues are normal as imaged. Shoulder arthroplasties are in place. IMPRESSION: 1. No acute bony abnormality is seen involving the cervical spine on these lateral projections. 2. There is increasing anterolisthesis at C4-C5 seen on the flexion views. 3. Osteopenia with spondylotic and postsurgical change as above.
[~2022-12-15 06:06] MED LIST changes: +ACETAMINOPHEN 500 MG TAB PO SCH; +CeleBREX 200 MG CAP PO SCH; -DNSIS60 SQ; +GABAPENTIN 300 MG CAP PO SCH; -HYDR-3419 PO; +LR 15ML/HR IV SCH; +LR 60ML/HR IV SCH; -ONDA4TAB46 PO; -SULI200T4 PO; +ceFAZolin 2000MG 2,000 MG/15 ML SYR IV SCH
[2022-12-15] MEDS ORDERED: ceFAZolin 330 MG/ML 1 GM VIAL ONE (07:04)
[2022-12-15] MEDS ORDERED: ePHEDrine sulfate 50 MG/ML AMP IV PRN (07:08)
[2022-12-15] MEDS ORDERED: ATROPINE SULFATE 0.1 MG/ML 10ML SYR IV PRN (07:08)
[2022-12-15] MEDS ORDERED: ONDANSETRON INJ 2 MG/ML 2 ML VIAL IV PRN ×2 (07:08→11:13)
[2022-12-15] MEDS ORDERED: REMIFENTANIL HCL 1 MG VIAL IV ONE (07:11)
[2022-12-15] MEDS ORDERED: PROPOFOL IV EMULSION 10 MG/ML 100 ML VIAL IV ONE (07:12)
[2022-12-15] MEDS ORDERED: MIDAZOLAM HCL 1 MG/ML 2ML VIAL ONE (07:38)
[2022-12-15] MEDS ORDERED: ROCURONIUM BROMIDE 10 MG/ML 5 ML VIAL IV ONE (07:38)
[2022-12-15] MEDS ORDERED: LIDOCAINE 2% 2 ML VIAL/AMP(20MG/ML) INFIL ONE (07:38)
[2022-12-15] MEDS ORDERED: PROPOFOL IV EMULSION 10 MG/ML 20 ML VIAL IV ONE (07:38)
[2022-12-15] MEDS ORDERED: fentaNYL citrate PF 100 MCG/2 ML VIAL ONE (07:38)
--- NOTE | 2022-12-15 07:38 | History & Physical Bridge Note ---
Date of Service December 15, 2022 History & Physical Bridge Note I have examined the patient, reviewed the History & Physical and in the interval since the performance of the History & Physical I have noted the following changes of clinical significance: no changes noted
--- NOTE | 2022-12-15 07:39 | History & Physical Report ---
Date of Service December 15, 2022 Assessment & Plan (1) Cervical stenosis of spinal canal: Plan: C3-C4 anterior cervical discectomy and fusion, C2-C3 hardware removal History of Present Illness Chief Complaint: Neck and arm pain Primary Care Provider: Doron Veloz DO Allergies Allergy/AdvReac Type Severity Reaction Status Date / Time chlorhexidine Allergy Intermediate REDNESS/ITC Verified 12/15/22 06:32 ARBEN adhesive Allergy Unknown ALLERGIC Verified 12/15/22 06:32 TO TAPE, HOWEVER PAPER TAPE IS OK VICRYL Allergy Unknown "SUTURES Uncoded 12/15/22 06:32 DON'T DISSOLVE" Home Medications Medication Instructions Recorded Confirmed Type aspirin 81 mg tablet,delayed 81 mg PO HS 05/25/19 12/15/22 History release (Ecotrin Low Strength) denosumab 60 mg/mL subcutaneous 60 mg subcut UD 05/25/19 12/15/22 History syringe (Prolia) metoprolol tartrate 25 mg tablet 25 mg PO BID 05/25/19 12/15/22 History Co Q-10 1 cap PO QAM 11/21/22 12/15/22 History atorvastatin 80 mg tablet 80 mg PO QAM 11/21/22 12/15/22 History calcium 600 mg capsule 600 mg PO BID 11/21/22 12/15/22 History cholecalciferol (vitamin D3) 50 50 mcg PO HS 11/21/22 12/15/22 History mcg (2,000 unit) capsule (Vitamin D3) ezetimibe 10 mg tablet 10 mg PO QAM 11/21/22 12/15/22 History isosorbide mononitrate 30 mg 30 mg PO QAM 11/21/22 12/15/22 History tablet,extended release 24 hr krill oil 1 cap PO QAM 11/21/22 12/15/22 History losartan 25 mg tablet 25 mg PO QAM 11/21/22 12/15/22 History ondansetron 4 mg disintegrating 4 mg PO UD PRN taken with tramadol 11/21/22 12/15/22 History tablet when taken prednisone 10 mg tablet 10 mg PO UD PRN Inflammation 11/21/22 12/15/22 History prednisone 5 mg tablet 5 mg PO UD PRN Inflammation 11/21/22 12/15/22 History tramadol 50 mg tablet 50 - 100 mg PO TID PRN Pain 11/21/22 12/15/22 History upadacitinib 15 mg tablet,extended 15 mg PO HS 11/21/22 12/15/22 History release 24 hr (Rinvoq) vitamin B complex 1 tab PO HS 11/21/22 12/15/22 History Echinacea purpurea extract 75 4 tab PO DAILY 12/15/22 12/15/22 History mg-goldenseal extract 100 mg tablet acetaminophen 500 mg tablet 1,000 mg PO Q6H PRN Pain 12/15/22 12/15/22 History gabapentin 300 mg capsule 300 mg PO TID PRN Pain 12/15/22 12/15/22 History Past Med/Surg History Medical History 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> difficulty opening mouth (small opening)- usually needs pediatric ETT/scope per patient CAD (coronary artery disease) s/p ELSY x 2 to mid RCA 02/05/19; s/p ELSY x 1 to pCx 02/07/19 Dyslipidemia History of anesthesia reaction - Pt requesting manual BP checks only - had episode possibly back in 2014 after surgery- machine BP cuff caused BP to increase to emergently elevated levels in post op area- was given antihypertensives which then caused severe hypotension- patient was admitted x 4 days in attempts to get BP back up to baseline (usually has low normal BP per patient) Osteoporosis Rheumatoid arthritis STEMI (ST elevation myocardial infarction) 02/05/19- 2 ELSY mid RCA. 02/07/19 1 ELSY to proximal Circumflex Surgical History History of cardiac cath 2019, for MD, [facility], x3 stents; f/u [facility] History of esophagogastroduodenoscopy (EGD) History of heart artery stent 2019, for MD, [facility], x3 stents; f/u [facility] and [facility] History of hysterectomy w/appendectomy History of right shoulder replacement History of total bilateral knee replacement History of total left hip replacement History of total shoulder replacement left Hx of colonoscopy S/P cervical spinal fusion Family History Mother Diabetes Heart disease Social History Smoking Status: Never smoker Second Hand Exposure: No; Do You Dip or Chew Tobacco: Yes (hx as child); Tobacco Cessation Education Requested by Patient: No Hx Alcohol Use: No Hx Substance Use: No Preferred Language: Divehi Communication Ability: Effective Subway Conductor Required: No Beliefs That Will Affect Care: None marital status: Current Living Situation: Spouse and Family Other Information That Helps Us Care for You: No Feels Safe at Home: Yes Safety Concerns: Feels Safe At This Time Assistive Devices: Denture - Upper Physical Exam Physical Exam: Patient is alert and oriented Heart regular in rhythm Lungs clear Results & Data Results & Data Vital Signs (Past 12 Hours) Vital Signs Temp Pulse Resp BP Pulse Ox O2 Del Method 12/15/22 06:30 37.5 C 82 20 122/62 97 Room Air
--- NOTE | 2022-12-15 09:23 | Operative Report ---
Post Operative Report Pre & Post Diagnosis Operation Date: 12/15/22 07:45 Pre-Op Diagnosis: Cervical spinal stenosis with radiculopathy Post-Op Diagnosis: Same I identified the patient and participated in the time-out.: Yes Procedure Operation Date: 12/15/22 07:45 Actual Procedures #1 removal of anterior cervical plate C2-C3. #2 exploration of fusion C2-C3. #3 anterior cervical discectomy with bilateral foraminotomies C3-C4. #4 anterior cervical arthrodesis C3-C4. #5 placement spiral 7 mm cage filled with I factor C3-C4. #6 application of K2 M plate and screws across C3-C4. Surgeon David Valero, DO Slot Machine Key Person Savana Martel Estimated Blood Loss 10 Findings Consistent with Post-Op Diagnosis Specimens None Indications This is a 67-year-old female presents above-mentioned diagnosis of failed course of nonoperative care she is here for surgical invention. Description of Procedure Patient was met with identified informed consent obtained. Patient was then taken to the operative suite underwent ablation placed in supine position on the Raza table with a head Olivo mejia. All bony promises well-padded eyes inspected to ensure no external precipice spinal. This point anterior cervical spine was prepped and draped no sterile fashion. The assistance of fluoroscopy identified the C3-C4 disc base and a transverse incision was placed along the right anterior aspect the cervical spine overlying this region. Blunt dissection with the assistance of Bovie cautery form down to and exposing the anterior cervical spine from the C2-C3 plate to C4. I then proceeded to move the hardware at C3-C3 explore the fusion mass noted to be intact and mature. And then performed a complete discectomy of C3-C4 out to the ankle joint bilaterally. Eastman distracting pins were utilized to assist in visualization. Removed all posterior annular fibers longitudinal ligament bilateral foraminotomies performed. 7 mm Spira cage filled with I factor tapped in position. Distracting apparatus was removed and the K2 M plate and screws applied with the assistance of fluoroscopy. The incision was then copiously irrigated explored to ensure no damage surrounding structures remaining bleeding. 10 round MIKA drain inserted. The incision was then closed with subcutaneous Nurolon and 4 Monocryl for final skin closure. Steri-Strips sterile dressings placed. Patient waken taken to PACU in stable condition. Please note spinal cord monitoring visualized at the procedure no changes noted. Lastly Savana Martel was present at the entire surgeon while the patient positioning complex portion of the surgery and final skin closure. I attest to the content of the Intraoperative Record and any orders documented therein. Any exceptions are noted below.
[2022-12-15] MEDS: fentaNYL citrate PF 100 MCG/2 ML VIAL IV PRN ×4 (09:45→10:00)
[2022-12-15] MEDS: HYDROmorphone INJ 1 MG/ML SYRINGE IV PRN ×4 (10:05→10:20)
--- NOTE | 2022-12-15 10:24 | Fluoroscopy Report ---
FL cervical 2-3V CLINICAL HISTORY: ACDF C3-C4 C2-C3 HW REMOVAL COMPARISON STUDY: 11/26/2022 FLUOROSCOPY TIME: 13.1 seconds FLUOROSCOPY IMAGES: 2 EXPOSURE DOSE: 2.29 mGy FINDINGS: Anterior plate and screw fusion hardware with discectomy is noted at what is labeled the C3 -C4 level. Bony demineralization limits the study. The hardware appears intact. Endotracheal tube is noted. IMPRESSION: Fluoroscopic assistance of the above. ACT 112: Negative or not required by law. Electronically signed by: Heri Gates M.D. 12/15/2022 10:21 AM
--- NOTE | 2022-12-15 10:50 | Anesthesiology Progress Note ---
Date of Service December 15, 2022 Anesthesia Post Procedure Vital Signs Vital Signs: Temp Pulse Pulse Resp BP Pulse Ox O2 Del Method 12/15/22 10:25 78 18 148/78 H 97 Nasal Cannula 12/15/22 10:10 74 16 158/82 H 98 Nasal Cannula 12/15/22 09:55 88 16 161/88 H 98 Nasal Cannula 12/15/22 09:40 36.7 C 94 H 16 180/100 H 100 Oxymask 12/15/22 06:30 37.5 C 82 20 122/62 97 Room Air O2 Flow Rate 12/15/22 10:25 2 12/15/22 10:10 4 12/15/22 09:55 4 12/15/22 09:40 5 12/15/22 06:30 Pain Intensity Bilateral Arm: Pain Intensity: 4 Transfer of Care Handoff Completed per policy Notes Mental Status: alert / awake / arousable and participated in evaluation Patient Amnestic to Procedure: Yes Nausea / Vomiting: adequately controlled Pain: adequately controlled Airway Patency, RR, SpO2: stable & adequate BP & HR: stable & adequate Hydration State: stable & adequate Anesthetic Complications: no major complications apparent and Pt Satisfied with anesthetic care
[2022-12-15] MEDS ORDERED: HYDROmorphone INJ 0.5 MG/0.5 ML SYR IV PRN (11:13)
[2022-12-15] MEDS ORDERED: oxyCODONE HCL IR 5 MG TAB (IMMEDIATE RELEASE) PO PRN (11:13)
[2022-12-15] MEDS ORDERED: GABAPENTIN 300 MG CAP PO PRN (11:13)
[2022-12-15] MEDS ORDERED: DO NOT ADMINISTER PNEUMOCOCCAL VACCINE PRN (11:13)
[2022-12-15] MEDS ORDERED: MAGNESIUM HYDROXIDE SUSP 30 ML UDC PO PRN (11:13)
[2022-12-15] MEDS ORDERED: METOCLOPRAMIDE HCL INJ 5 MG/ML 2 ML VIAL IV PRN (11:13)
[2022-12-15] MEDS ORDERED: DO NOT ADMINISTER FLU VACCINE PRN (11:13)
[2022-12-15] MEDS ORDERED: ACETAMINOPHEN 1,000 MG/100 ML VIAL IV PRN (11:13)
[2022-12-15] MEDS ORDERED: ALUMINUM/MAGNESIUM SUSP 30 ML UDC PO PRN (11:13)
[2022-12-15] MEDS ORDERED: dexAMETHasone 8 MG in SYRINGE 0 ML IV PRN (11:13)
[2022-12-15] MEDS ORDERED: diphenhydrAMINE Capsule 25 MG CAP PO PRN (11:13)
[2022-12-15] MEDS ORDERED: ACETAMINOPHEN 500 MG TAB PO PRN (11:13)
[2022-12-15] MEDS ORDERED: HYDROmorphone INJ 1 MG/ML SYRINGE IV PRN (11:13)
[2022-12-15] MEDS ORDERED: SOD PHOSPHATE/SOD BIPHOSPHATE ENEMA 132 ML BTL PR PRN (11:13)
[2022-12-15] MEDS ORDERED: NALOXONE HCL 0.4 MG/1 ML VIAL/CARP IV PRN (11:13)
[2022-12-15] MEDS ORDERED: RACEPINEPHRINE 2.25% NEBU SOLN 0.5 ML VIAL INH PRN (11:13)
[2022-12-15] MEDS ORDERED: bisacodyL 10 MG SUPP PR PRN (11:13)
[2022-12-15] MEDS ORDERED: hydrOXYzine HCl 25 MG TAB PO PRN (11:13)
[2022-12-15] MEDS ORDERED: LORazepam 0.5 MG TAB PO PRN (11:13)
[2022-12-15] MEDS ORDERED: PROMETHAZINE HCL 12.5 MG in SODIUM CHLORIDE 0.9% 50 ML IV PRN (11:13)
[2022-12-15] MEDS ORDERED: LORazepam 2 MG/1 ML VIAL IV PRN (11:13)
[2022-12-15] MEDS ORDERED: ONDANSETRON 4 MG OD TAB PO PRN (11:13)
[2022-12-15] MEDS ORDERED: FAMOTIDINE 20 MG TAB PO PRN (11:13)
[2022-12-15] MEDS: LACTATED RINGER'S 1,000 ML IV SCH (11:57)
[2022-12-15] MEDS: traMADol HCL 50 MG TABLET PO PRN ×2 (12:21→16:37)
[2022-12-15] MEDS: dexAMETHasone 6 MG in SYRINGE 0 ML IV SCH ×2 (13:24→20:39)
--- NOTE | 2022-12-15 13:24 | Consultation ---
Date of Consultation December 15, 2022 Assessment & Plan (1) Cervical stenosis of spinal canal: (2) CAD (coronary artery disease): (3) Rheumatoid arthritis: (4) Dyslipidemia: Plan This is a 67 yr old F who has significant PMH of CAD with hx of RCA stent 02/05/19 and circumflex stent 02/07/19, Rheumatoid arthritis, subclavian artery stenosis, PVD, hx of LAUREL, hx of cervical spine fusion, osteoporosis who presents for elective neck surgery by Dr. Valero. Cervical stenosis of spinal canal Status post removal of anterior cervical plate C2-C3, exploration of fusion C2- C3, anterior cervical dissecting with bilateral foraminotomies C3-C4, anterior cervical arthrodesis C3-C4, POD #0 EBL 10ml Pain/wound management per orthopedics Diet as per orthopedic CAD with history of coronary artery stent x2 HTN HLD Chronic, stable, patient denies chest pain Continue aspirin, statin, Zetia, metoprolol, Imdur and losartan (parameters placed on losartan) Rheumatoid arthritis Follows rheumatology, chronic, stable Rinvoq on hold perioperative, resume at discretion of orthopedics DVTppx: SCDS per primary FULL CODE PCP: Magdiel Dispo: per primary Thank you for this consultation. We will follow the patient with you during their hospital stay. You can reach a member of the [facility] Hospitalist Team 29/09 via hospitalist role on tiger text. Pt was seen and examined in collaboration with Dr. Del Valle, please see addendum Supervising Physician Co-Signing Physician Notes Attending addendum: The patient was seen and examined in medical floor She is a status post C3-C4 anterior cervical discectomy and fusion Has been feeling a lot better following surgery Denies any chest pain, shortness of breath or palpitation, any abdominal pain nausea no vomiting On examination Lying in bed comfortable Remains hemodynamically stable Cervical collar in situ Chest-clear to auscultate bilaterally Heart-S1, S2 regular Abdomen-benign Extremities-negative for edema Her labs and imaging studies reviewed She is status post C3-C4 anterior cervical discectomy and fusion Remains medically stable following the procedure Agree with assessment and plan as outlined above by Tamara Del Valle History of Present Illness Requesting Physician: Dr. Valero Reason for Consultation: Postop medical management Attending Physician: David Valero, DO History of Present Illness This is a 67 yr old F who has significant PMH of CAD with hx of RCA stent 02/05/19 and circumflex stent 02/07/19, Rheumatoid arthritis, subclavian artery stenosis, PVD, hx of LAUREL, hx of cervical spine fusion, osteoporosis who presents for elective neck surgery by Dr. Valero. Her is at bedside who also helps elicit hx. Her neck pain is gone from what she was experiencing prior to surgery. She denies any numbness/tingling to arms and fingers. She denies f/c/s, chest pain, sob, n/v/d, cough or URI sx. In regards to her rheumatoid arthritis she takes daily rinvoq but this has been on hold the past 2 weeks pending upcoming surgery and will be on hold another 2 weeks. She also takes prn predni sone for flares. Pre op note from PCP Dr. Veloz was reviewed. She was treated for UTI with cefdinir. Allergies Allergy/AdvReac Type Severity Reaction Status Date / Time chlorhexidine Allergy Intermediate REDNESS/ITC Verified 12/15/22 06:32 ARBEN adhesive Allergy Unknown ALLERGIC Verified 12/15/22 06:32 TO TAPE, HOWEVER PAPER TAPE IS OK Home Medications Medication Instructions Recorded Confirmed Type aspirin 81 mg tablet,delayed 81 mg PO HS 05/25/19 12/15/22 History release (Ecotrin Low Strength) denosumab 60 mg/mL subcutaneous 60 mg subcut UD 05/25/19 12/15/22 History syringe (Prolia) metoprolol tartrate 25 mg tablet 25 mg PO BID 05/25/19 12/15/22 History Co Q-10 1 cap PO QAM 11/21/22 12/15/22 History atorvastatin 80 mg tablet 80 mg PO QAM 11/21/22 12/15/22 History calcium 600 mg capsule 600 mg PO BID 11/21/22 12/15/22 History cholecalciferol (vitamin D3) 50 50 mcg PO HS 11/21/22 12/15/22 History mcg (2,000 unit) capsule (Vitamin D3) ezetimibe 10 mg tablet 10 mg PO QAM 11/21/22 12/15/22 History isosorbide mononitrate 30 mg 30 mg PO QAM 11/21/22 12/15/22 History tablet,extended release 24 hr krill oil 1 cap PO QAM 11/21/22 12/15/22 History losartan 25 mg tablet 25 mg PO QAM 11/21/22 12/15/22 History ondansetron 4 mg disintegrating 4 mg PO UD PRN taken with tramadol 11/21/22 12/15/22 History tablet when taken prednisone 10 mg tablet 10 mg PO UD PRN Inflammation 11/21/22 12/15/22 History prednisone 5 mg tablet 5 mg PO UD PRN Inflammation 11/21/22 12/15/22 History tramadol 50 mg tablet 50 - 100 mg PO TID PRN Pain 11/21/22 12/15/22 History upadacitinib 15 mg tablet,extended 15 mg PO HS 11/21/22 12/15/22 History release 24 hr (Rinvoq) vitamin B complex 1 tab PO HS 11/21/22 12/15/22 History Echinacea purpurea extract 75 4 tab PO DAILY 12/15/22 12/15/22 History mg-goldenseal extract 100 mg tablet acetaminophen 500 mg tablet 1,000 mg PO Q6H PRN Pain 12/15/22 12/15/22 History gabapentin 300 mg capsule 300 mg PO TID PRN Pain 12/15/22 12/15/22 History oxycodone 5 mg tablet 5 mg PO Q6H PRN pain #30 tabs 12/15/22 Rx tramadol 50 mg tablet 50 mg PO Q6H PRN pain, moderate 12/15/22 Rx #30 tabs Patient History Medical History 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> difficulty opening mouth (small opening)- usually needs pediatric ETT/scope per patient CAD (coronary artery disease) s/p ELSY x 2 to mid RCA 02/05/19; s/p ELSY x 1 to pCx 02/07/19 Dyslipidemia History of anesthesia reaction - Pt requesting manual BP checks only - had episode possibly back in 2014 after surgery- machine BP cuff caused BP to increase to emergently elevated levels in post op area- was given antihypertensives which then caused severe hypotension- patient was admitted x 4 days in attempts to get BP back up to baseline (usually has low normal BP per patient) Osteoporosis Rheumatoid arthritis STEMI (ST elevation myocardial infarction) 02/05/19- 2 ELSY mid RCA. 02/07/19 1 ELSY to proximal Circumflex Surgical History History of cardiac cath 2019, for [place], [place], x3 stents; f/u [facility] History of esophagogastroduodenoscopy (EGD) History of heart artery stent 2019, for [place], [place], x3 stents; f/u [facility]elson and [facility] History of hysterectomy w/appendectomy History of right shoulder replacement History of total bilateral knee replacement History of total left hip replacement History of total shoulder replacement left Hx of colonoscopy S/P cervical spinal fusion Family History Mother Diabetes Heart disease Social History Smoking Status: Never smoker Second Hand Exposure: No; Do You Dip or Chew Tobacco: Yes (hx as child); Tobacco Cessation Education Requested by Patient: No Hx Alcohol Use: No Hx Substance Use: No Preferred Language: Tamazight Communication Ability: Effective Development Manager Required: No Beliefs That Will Affect Care: None marital status: Current Living Situation: Spouse and Family Other Information That Helps Us Care for You: No Feels Safe at Home: Yes Safety Concerns: Feels Safe At This Time Assistive Devices: Denture - Upper Review of Systems Review of Systems: All systems reviewed & are unremarkable except as noted in HPI & below Physical Exam Physical Exam: Constitutional: WD/WN, petite, female, vitals as above, NAD, sitting up in bed, pleasant, conversing easily Head: Normocephalic, Atraumatic Eyes: PERRL, conjunctivae normal, anicteric sclerae ENMT: external ear and nose normal, oropharynx normal Neck: C-collar in place with dressing CDI, MIKA drain with serosanguineous drainage, trachea midline, no thyromegaly normal visual inspection Respiratory: normal respiratory effort, lungs clear to auscultation, no wheeze, rales, rhonchi. Normal insp/exp effort, no accessory muscle use Cardiovascular: RRR, no murmur, no edema Vessels: no JVD or carotid bruit Chest: normal inspection of chest Abdomen: normal bowel sounds, soft, nontender, no hepatosplenomegaly Musculoskeletal: no cyanosis or clubbing, active range of motion to upper and lower extremities. RA deformities noted in bilateral hands Skin: no rashes, warm and dry normal turgor Neurologic: PERRL, EOMI, accommodation nl, no face palsy, no dysarthria CN's II-XI intact bilaterally and moves all extremities Psychiatric: A+Ox3, euthymic affect Lymphatic: no cervical or axillary lymphadenopathy : deferred Results & Data Vital Signs (Past 12 Hours) Vital Signs Temp Pulse Pulse Resp BP Pulse Ox Pulse Ox 12/15/22 12:15 36.5 C 88 18 125/62 96 12/15/22 11:45 36.5 C 87 16 130/68 97 12/15/22 11:51 88 18 96 12/15/22 11:15 12/15/22 11:15 36.5 C 87 18 135/70 96 12/15/22 11:15 96 12/15/22 10:40 76 14 138/70 98 12/15/22 10:25 78 18 148/78 H 97 12/15/22 10:10 74 16 158/82 H 98 12/15/22 09:55 88 16 161/88 H 98 12/15/22 09:40 36.7 C 94 H 16 180/100 H 100 12/15/22 06:30 37.5 C 82 20 122/62 97 O2 Del Method O2 Del Method O2 Flow Rate O2 Flow Rate 12/15/22 12:15 Nasal Cannula 1 12/15/22 11:45 Nasal Cannula 2 12/15/22 11:51 Nasal Cannula 2 12/15/22 11:15 Nasal Cannula 2 12/15/22 11:15 Room Air 12/15/22 11:15 Nasal Cannula 2 12/15/22 10:40 Nasal Cannula 2 12/15/22 10:25 Nasal Cannula 2 12/15/22 10:10 Nasal Cannula 4 12/15/22 09:55 Nasal Cannula 4 12/15/22 09:40 Oxymask 5 12/15/22 06:30 Room Air Laboratory Results Preoperative lab work reviewed from 10/29 and 11/26/2022 Sodium 138, K4.0, BUN 12, creatinine 0.57, glucose 92, CBC unremarkable Urinalysis from 920 grew Escherichia coli Diagnostic Findings Cervical Spine X-Ray 12/15/22 07:45 FL cervical 2-3V CLINICAL HISTORY: ACDF C3-C4 C2-C3 HW REMOVAL COMPARISON STUDY: 11/26/2022 FLUOROSCOPY TIME: 13.1 seconds FLUOROSCOPY IMAGES: 2 EXPOSURE DOSE: 2.29 mGy FINDINGS: Anterior plate and screw fusion hardware with discectomy is noted at what is labeled the C3-C4 level. Bony demineralization limits the study. The hardware appears intact. Endotracheal tube is noted. IMPRESSION: Fluoroscopic assistance of the above. ACT 112: Negative or not required by law. Electronically signed by: Heri Gates M.D. 12/15/2022 10:21 AM Medications Administered Current Inpatient Medications Acetaminophen (Acetaminophen 500 Mg Tab) 1,000 mg PO PREOP EL Stop: 12/15/22 18:00 Last Admin: 12/15/22 06:56 Dose: 1,000 mg Acetaminophen (Acetaminophen 500 Mg Tab) 1,000 mg PO Q8H PRN PRN Reason: MILD Pain Scale 1,2,3 & Pre PT Stop: 01/14/23 11:12 Al Hydrox/Mg Hydrox/Simethicone (Aluminum/Magnesium Susp 30 Ml Udc) 30 ml PO Q6H PRN PRN Reason: Dyspepsia Stop: 01/14/23 11:12 Aspirin (Aspirin 81 Mg Ectab) 81 mg PO HS EL Stop: 01/14/23 20:59 Atorvastatin Calcium (Atorvastatin 40 Mg Tab) 80 mg PO QAM EL Stop: 01/15/23 08:59 Atropine Sulfate (Atropine Sulfate 0.1 Mg/Ml 10ml Syr) 0.5 mg IV Q1M PRN PRN Reason: PACU Use-HR<40 &/or Bradycardi Stop: 12/15/22 15:08 Bisacodyl (Bisacodyl 10 Mg Supp) 10 mg OK DAILY PRN PRN Reason: Constipation Stop: 01/14/23 11:12 Calcium Carbonate (Calcium Carbonate 1250mg Tab) 1,250 mg PO BID EL Stop: 01/14/23 20:59 Celecoxib (Celebrex 200 Mg Cap) 200 mg PO PREOP EL Stop: 12/15/22 18:00 Last Admin: 12/15/22 06:55 Dose: 200 mg Diphenhydramine HCl (Diphenhydramine Capsule 25 Mg Cap) 25 mg PO Q6H PRN PRN Reason: Allergic Rhinitis/Insomnia Stop: 01/14/23 11:12 Ezetimibe (Ezetimibe 10 Mg Tab) 10 mg PO QAM EL Stop: 01/15/23 08:59 Ephedrine Sulfate (Ephedrine Sulfate 50 Mg/Ml Amp) 5 mg IV Q5M PRN PRN Reason: PACU Use Only-SBP<90 mmHg Stop: 12/15/22 15:08 Epinephrine (Racepinephrine 2.25% Nebu Soln 0.5 Ml Vial) 0.5 ml INH NOW PRN PRN Reason: If stridor present Famotidine (Famotidine 20 Mg Tab) 20 mg PO Q12H PRN PRN Reason: Dyspepsia Stop: 01/14/23 11:12 Fentanyl Citrate (Fentanyl Citrate Pf 100 Mcg/2 Ml Vial) 25 mcg IV Q5M PRN PRN Reason: PACU Use Only-Pain Stop: 12/15/22 15:08 Last Admin: 12/15/22 10:00 Dose: 25 mcg Gabapentin (Gabapentin 300 Mg Cap) 300 mg PO PREOP EL Stop: 12/15/22 18:00 Last Admin: 12/15/22 06:55 Dose: 300 mg Gabapentin (Gabapentin 300 Mg Cap) 300 mg PO TID PRN PRN Reason: Pain Stop: 01/14/23 11:12 Hydromorphone HCl (Hydromorphone Inj 1 Mg/Ml Syringe) 0.25 mg IV Q5M PRN PRN Reason: PACU Use Only-Pain Stop: 12/15/22 15:08 Last Admin: 12/15/22 10:20 Dose: 0.25 mg Hydromorphone HCl (Hydromorphone Inj 0.5 Mg/0.5 Ml Syr) 0.5 mg IV Q3H PRN PRN Reason: MODERATE Pain (Scale 4,5,6) & Pre PT Stop: 12/29/22 11:12 Hydromorphone HCl (Hydromorphone Inj 1 Mg/Ml Syringe) 1 mg IV Q3H PRN PRN Reason: SEVERE Pain (Scale 7,8,9,10) Stop: 12/29/22 11:12 Hydroxyzine HCl (Hydroxyzine Hcl 25 Mg Tab) 25 mg PO Q8H PRN PRN Reason: Anxiety Stop: 01/14/23 11:12 Lactated Ringer's (Lr) 1,000 mls @ 60 mls/hr IV .[id number] EL Stop: 12/15/22 22:39 Last Admin: 12/15/22 06:47 Dose: Not Given Cefazolin Sodium (Ancef 2000mg) 2,000 mg in 15 mls @ 3.75 mls/min IV PREOP EL; Protocol Stop: 12/15/22 18:00 Last Admin: 12/15/22 07:52 Dose: 3.75 mls/min Lactated Ringer's (Lr) 1,000 mls @ 15 mls/hr IV .Q24H EL Stop: 12/16/22 05:59 Last Infusion: 12/15/22 07:52 Dose: Infused Dexamethasone 8 mg/ Syringe 2 mls @ 1 mls/min IV NOW PRN PRN Reason: If stridor present Lactated Ringer's (Lr) 1,000 mls @ 75 mls/hr IV .[id number] [facility] Stop: 01/14/23 11:12 Last Admin: 12/15/22 11:57 Dose: 75 mls/hr Promethazine HCl 12.5 mg/ (Sodium Chloride) 50.5 mls @ 202 mls/hr IV Q6H PRN PRN Reason: Nausea &/or Vomiting Stop: 01/14/23 11:12 Acetaminophen (Ofirmev) 1,000 mg in 100 mls @ 400 mls/hr IV Q8H PRN PRN Reason: Pain Rating 1-3 & Pre PT Stop: 12/16/22 11:13 Cefazolin Sodium (Ancef 1000mg) 1,000 mg in 7.5 mls @ 2.5 mls/min IV Q8H [facility]; Protocol Stop: 12/16/22 00:02 Dexamethasone 6 mg/ Syringe 1.5 mls @ 1 mls/min IV Q8H EL Stop: 12/16/22 04:02 Last Admin: 12/15/22 13:24 Dose: 1 mls/min Influenza Virus Vaccine Quadrival (Do Not Administer Flu Vaccine) 1 each N/A PRN PRN PRN Reason: Notification Stop: 01/14/23 11:12 Isosorbide Mononitrate (Isosorbide Dickson Extended Rel 30 Mg Tabcr) 30 mg PO QAM [facility] Stop: 01/15/23 08:59 Lorazepam (Lorazepam 0.5 Mg Tab) 0.5 mg PO Q8H PRN PRN Reason: Sedation/Anxiety Stop: 01/14/23 11:12 Lorazepam (Lorazepam 2 Mg/1 Ml Vial) 0.5 mg IV Q8H PRN PRN Reason: Sedation/Anxiety Stop: 01/14/23 11:12 Losartan Potassium (Losartan Potassium 25 Mg Tab) 25 mg PO QAM [facility] Stop: 01/15/23 08:59 Magnesium Hydroxide (Magnesium Hydroxide Susp 30 Ml Udc) 30 ml PO Q24H PRN PRN Reason: Constipation Stop: 01/14/23 11:12 Metoclopramide HCl (Metoclopramide Hcl Inj 5 Mg/Ml 2 Ml Vial) 10 mg IV Q6H PRN PRN Reason: Nausea &/or Vomiting Stop: 01/14/23 11:12 Metoprolol Tartrate (Metoprolol Tartrate 25 Mg Tab) 25 mg PO BID [facility] Stop: 01/14/23 20:59 Miscellaneous (Rinvoq~Order Awaiting Action) 1 each N/A QS [facility] Stop: 01/14/23 15:59 Naloxone HCl (Naloxone Hcl 0.4 Mg/1 Ml Vial/Carp) 0.1 mg IV Q5M PRN PRN Reason: Oversedation/Resp depression Stop: 01/14/23 11:12 Ondansetron HCl (Ondansetron Inj 2 Mg/Ml 2 Ml Vial) 4 mg IV ONCE PRN PRN Reason: PACU Use Only-Nausea/Vomiting Stop: 12/15/22 15:08 Ondansetron HCl (Ondansetron Inj 2 Mg/Ml 2 Ml Vial) 4 mg IV Q6H PRN PRN Reason: Nausea &/or Vomiting Stop: 01/14/23 11:12 Ondansetron HCl (Ondansetron 4 Mg Od Tab) 4 mg PO Q6H PRN PRN Reason: Nausea Stop: 01/14/23 11:12 Oxycodone HCl (Oxycodone Hcl Ir 5 Mg Tab (Immediate Release)) 5 - 10 mg PO Q4H PRN PRN Reason: Pain & Pre PT Stop: 12/29/22 11:12 Pneumococcal Polyvalent Vaccine (Do Not Administer Pneumococcal Vaccine) 1 each N/A PRN PRN PRN Reason: Notification Stop: 01/14/23 11:12 Polyethylene Glycol (Polyethylene (Miralax) 17 Gm Pack) 17 gm PO Q6 EL Stop: 01/15/23 05:59 Senna/Docusate Sodium (Docusate Sodium/Senna 50/8.6mg Tab) 2 tab PO HS EL Stop: 01/14/23 20:59 Sodium Biphosphate/Sodium Phosphate (Sod Phosphate/Sod Biphosphate Enema 132 Ml Btl) 132 ml OK ONE PRN PRN Reason: Constipation Stop: 01/14/23 11:12 Tramadol HCl (Tramadol Hcl 50 Mg Tablet) 50 - 100 mg PO Q4H PRN PRN Reason: Moderate-Severe pain & Pre PT Stop: 01/14/23 11:12 Last Admin: 12/15/22 12:21 Dose: 100 mg Vitamin B Complex (Vitamin B Complex Tab) 1 tab PO HS EL Stop: 01/14/23 20:59 Vitamin D (Cholecalciferol 1,000 Units 25 Mcg Tab) 2,000 units PO HS EL Stop: 01/14/23 20:59 ECG Additional Comments: EKG 11/24/2022 revealed sinus bradycardia with ventricular rate of 58 bpm, no ST or T wave changes, QTc 441 MS this was independently interpreted by myself
[2022-12-15] MEDS: RINVOQ~ORDER AWAITING ACTION SCH (16:33)
[2022-12-15] MEDS: ceFAZolin 1000MG 1,000 MG/7.5 ML SYR IV SCH (16:33)
[2022-12-15] MEDS: CALCIUM CARBONATE 1250MG TAB PO SCH (20:37)
[2022-12-15] MEDS: METOPROLOL TARTRATE 25 MG TAB PO SCH (20:37)
[2022-12-15] MEDS ORDERED: ASPIRIN 81 MG ECTAB PO SCH (21:00)
[2022-12-15] MEDS ORDERED: CHOLECALCIFEROL 1,000 UNITS 25 MCG TAB PO SCH (21:00)
[2022-12-15] MEDS ORDERED: DOCUSATE SODIUM/SENNA 50/8.6MG TAB PO SCH (21:00)
[2022-12-15] MEDS ORDERED: VITAMIN B COMPLEX TAB PO SCH (21:00)
[2022-12-16] MEDS: LACTATED RINGER'S 1,000 ML IV SCH (00:19)
[2022-12-16] MEDS: RINVOQ~ORDER AWAITING ACTION SCH (00:20)
[2022-12-16] MEDS: ceFAZolin 1000MG 1,000 MG/7.5 ML SYR IV SCH (00:20)
[2022-12-16] MEDS: dexAMETHasone 6 MG in SYRINGE 0 ML IV SCH (04:18)
[2022-12-16] MEDS ORDERED: Nursing to Pharmacy Communication SCH (06:00)
[2022-12-16] MEDS ORDERED: POLYETHYLENE (MIRALAX) 17 GM PACK PO SCH (06:00)
[2022-12-16 06:44] LABS: Basophils # (auto) 0.01 K/uL (0.00-0.20); Basophils % (auto) 0.1 %; Hematocrit (blood only) 32.2 % (37.0-47.0); Hemoglobin 11.3 g/dl (12.0-16.0); Immature Granulocytes # (auto) 0.04 K/uL (0.01-0.20); Immature Granulocytes % (auto) 0.4 %; Lymphocytes % (auto) 7.9 %; Mean Corpuscular Hemoglobin 32.3 pg (25.0-34.0); Mean Corpuscular Hgb Conc 35.1 g/dL (32.0-36.0); Mean Platelet Volume 8.9 fL (9.4-12.4); Monocytes # (auto) 0.57 K/uL (0.11-0.59); Monocytes % (auto) 5.6 %; Neutrophils # (auto) 8.67 K/uL (1.40-6.50); Platelet Count 253 K/uL (130-400); RDW Coefficient of Variation 12.5 % (11.5-14.5); RDW Standard Deviation 42.1 fL (36.4-46.3); White Blood Count 10.09 K/ul (4.8-10.8)
[2022-12-16 07:10] LABS: BUN Creatinine Ratio 20.5 (10-20); Calcium 8.7 mg/dl (8.6-10.3); Est GFR (African American) 122.8 ml/min; Est GFR (Non-African American) 105.9 ml/min; Magnesium 1.7 mg/dl (1.7-2.4)
[2022-12-16] MEDS: METOPROLOL TARTRATE 25 MG TAB PO SCH (07:29)
[2022-12-16] MEDS: CALCIUM CARBONATE 1250MG TAB PO SCH (07:29)
--- NOTE | 2022-12-16 08:19 | Discharge Summary ---
Date of Service December 16, 2022 Principal Diagnosis Cervical spinal stenosis with radiculopathy Discharge Data Allergies Allergy/AdvReac Type Severity Reaction Status Date / Time chlorhexidine Allergy Intermediate REDNESS/ITC Verified 12/15/22 06:32 ARBEN adhesive Allergy Unknown ALLERGIC Verified 12/15/22 06:32 TO TAPE, HOWEVER PAPER TAPE IS OK Consultations 12/15/22 11:13 Consult Hospitalist Routine Procedures Performed Operation Date: 12/15/22 07:45 Actual Procedures p C3-C4 Anterior Cervical Discectomy and Fusion, Spinal Cord Monitoring(Not Applicable) - David Valero DO s C2-C3 Hardware Removal(Not Applicable) - David Valero DO Ordered Studies 12/15/22 07:45 FL cervical 2-3V Routine Hospital Course (1) Cervical stenosis of spinal canal: Patient underwent anterior cervical discectomy and fusion tolerated as well as taken to the orthopedic floor postoperatively postop day 1 she was swallowing well no hoarseness. Arm symptoms markedly improved. Extra strength testing. Subsequent to discharge home. Discharge orders and instructions on chart for further review. Total Time Total Time Spent Total Time Spent (In Minutes): 20 minutes Discharge Plan Discharge Items Patient Disposition: Home - Self-Care Reason For Visit: Spinal Stenosis, Cervical Region Discharge Diagnosis: Cervical spinal stenosis with radiculopathy Activity: As commented below Non-emergency contact: Primary Care Provider Call non-emergency contact if: you have any medication questions Follow-up/Referrals: Doron Veloz DO [Primary Care Provider] - Diet: Regular Addtl Attending Provider Instructions: ACTIVITY RECOMMENDATIONS: SELF CARE INSTRUCTIONS AFTER THORACIC/LUMBAR FUSIONS 1. You may walk to your tolerance. It is good exercise for your legs and back. Expect some back and intermittent leg aches and pains. 2. You may perform "counter-top" level activities (make a sandwich, candido with a project, etc.). 3. No bending or lifting of more than 10 pounds or back twisting of any nature (roll like a log when turning in bed). 4. You may ride in a car for 20-30 minutes at a time. No driving until after your first visit with your doctor. 5. Frequent changes of position and restricting sitting to 30 minutes at a time will help limit the amount of back spasms and stiffness you may experience. 6. You may discontinue the use of ambulatory aids (cane, crutches, etc.) once your strength and confidence allow. 7. You may machine heel seat laster the shower and let water strike your incision when you arrive home at least once daily. Do not take a tub bath, sit in a hot tub or go into a swimming pool until after your first recheck in the office. SPECIAL CARE INSTRUCTIONS: VERY IMPORTANT TO READ AND REVIEW A. Your surgical incision has been closed with a cosmetic suture under the skin that will dissolve in about 6 weeks. In 14 days, you can use a pair of clean scissors and cut the suture that is left outside of the skin at the ends of your incision. 1. The small skin tapes can be removed 7 days after surgery if they have not fallen off by that point. 2. You may keep the wound open to air as much as possible to promote healing after post-op day number 5 unless told otherwise by your doctor. 3. If you think the wound looks like it is becoming infected (redness or worsening drainage) and/or you are experiencing fever, chill or worsening back pain and muscle spasms, contact the office so that we may evaluate you as soon as possible. B. Complications are uncommon, but please contact us if you have any signs or symptoms of: 1. wound infection (fever higher than 102.5 degrees F, redness, separation of wound, drainage, or increasing pain from the incision) 2. blood clots in legs (pain, swelling, redness and warmth in legs) 3. urinary tract infection (fever higher than 102.5 degrees F, burning upon urination or increased frequency of urination) 4. nerve problems (inability to walk on your toes or heels, numbness, loss of bowel or bladder control) 5. any other symptoms that concern you C. Please call the office at if you have any concerns or questions about your operation or recovery. D. No smoking! Smoking drastically decreases the chance of a solid fusion. E. Do not take any anti-inflammatory medications (Indocin, Advil, Motrin, Aspirin, Naprosyn, etc.) as these may inhibit the chance of a solid fusion. Tylenol is okay to take for pain. MANAGING PAIN AFTER SPINAL SURGERY 1. Narcotic medication is intended for short-term use and will be provided for surgical pain. Surgical pain usually lasts for a period of 4-6 weeks. Narcotic medication includes Percocet, Vicodin, Darvocet, Tylenol #3 or Lortab. 2. Longer-term pain is more appropriately treated with non-narcotic medication such as Tylenol ES. 3. Muscle spasm is not appropriately treated with narcotics. Muscle relaxers such as Soma, Flexeril or Skelaxin can be used along with Tylenol ES. 4. Remember that we all live with some "aches and pains". This is not unusual or uncommon after an injury or as we get older. a. Back pain is expected and may include muscle spasms for 4 to 6 weeks after surgery. The pain should gradually improve. If the pain worsens for no apparent reason, please contact the office. b. Intermittent leg pain may also be experienced and should not be concerned about unless it worsens for no apparent reason. If so, please contact the office. 5. We will provide appropriate medication within the normal guidelines of their prescribed use. We will also be very cautious and aware of potential abuse and extended duration of patients' medication needs. a. Pain medications are for your comfort and to assist with sleep and rest so that the tissue can heal. They are not provided in order to return to normal activity and should not be used through the day. To do so or worsening pain at night can result from ongoing tissue damage and development of tolerance to the prescribed medicine. 6. Please allow 2-3 days to process refills. Prescriptions will not be mailed but must be picked up at the office. FOLLOW UP VISIT: Keep your scheduled follow-up appointment. Any questions, please call the office at . Pending Studies at Discharge: No Stand-Alone Forms: My [facility] [employer], Smoking Cessation Medications and DC Order Prescriptions: New tramadol 50 mg tablet 50 mg PO Q6H PRN (Reason: pain, moderate) Qty: 30 0RF oxycodone 5 mg tablet 5 mg PO Q6H PRN (Reason: pain) Qty: 30 0RF Continued metoprolol tartrate 25 mg tablet 25 mg PO BID Prolia 60 mg/mL Syringe 60 mg SUBCUT UD Rx Instructions: every six months aspirin [Ecotrin Low Strength] 81 mg tablet,delayed release (DR/EC) 81 mg PO HS calcium 600 mg Capsule 600 mg PO BID atorvastatin 80 mg Tablet 80 mg PO QAM prednisone 10 mg Tablet 10 mg PO UD PRN (Reason: Inflammation) Rx Instructions: see taper instructions isosorbide mononitrate 30 mg Tablet Extended Release 24 Hr 30 mg PO QAM prednisone 5 mg Tablet 5 mg PO UD PRN (Reason: Inflammation) tramadol 50 mg Tablet 50 - 100 mg PO TID PRN (Reason: Pain) losartan 25 mg Tablet 25 mg PO QAM vitamin B complex Tablet 1 tab PO HS ondansetron 4 mg Tablet,Disintegrating 4 mg PO UD PRN (Reason: taken with tramadol when taken) ezetimibe 10 mg Tablet 10 mg PO QAM cholecalciferol (vitamin D3) [Vitamin D3] 50 mcg (2,000 unit) Capsule 50 mcg PO HS Rinvoq 15 mg Tablet Extended Release 24 Hr 15 mg PO HS Co Q-10 1 cap PO QAM krill oil 1 cap PO QAM Echinacea pur xt-goldenseal xt 75-100 mg Tablet 4 tab PO DAILY gabapentin 300 mg Capsule 300 mg PO TID PRN (Reason: Pain) acetaminophen 500 mg Tablet 1,000 mg PO Q6H PRN (Reason: Pain) Discharge Orders: Discharge Order (Routine); Ordered 12/16/22 Ordered By: David Valero Admission Data Admit Date/Time: 12/15/22 09:27 Attending Provider: Tami Hunt Admit Provider: David Valero Primary Care Provider: Doron Veloz Other Providers: Miryam Patricio ; Inna Borjas ; David Valero
[2022-12-16] MEDS ORDERED: CO Q10 PO SCH (09:00)
[2022-12-16] MEDS ORDERED: EZETIMIBE 10 MG TAB PO SCH (09:00)
[2022-12-16] MEDS ORDERED: ATORVASTATIN 40 MG TAB PO SCH (09:00)
[2022-12-16] MEDS ORDERED: LOSARTAN POTASSIUM 25 MG TAB PO SCH (09:00)
[2022-12-16] MEDS ORDERED: ISOSORBIDE MONO EXTENDED REL 30 MG TABCR PO SCH (09:00)
--- NOTE | 2022-12-16 10:26 | Hospitalist Progress Note ---
Date of Service December 16, 2022 Assessment & Plan (1) Cervical stenosis of spinal canal: (2) CAD (coronary artery disease): (3) Rheumatoid arthritis: (4) Dyslipidemia: Plan This is a 67 yr old F who has significant PMH of CAD with hx of RCA stent 02/05/19 and circumflex stent 02/07/19, Rheumatoid arthritis, subclavian artery stenosis, PVD, hx of LAUREL, hx of cervical spine fusion, osteoporosis who presents for elective neck surgery by Dr. Valero. Cervical stenosis of spinal canal Status post removal of anterior cervical plate C2-C3, exploration of fusion C2- C3, anterior cervical dissecting with bilateral foraminotomies C3-C4, anterior cervical arthrodesis C3-C4, POD #1 EBL 10ml Pain/wound management per orthopedics Diet as per orthopedic planning to be discharged later this morning CAD with history of coronary artery stent x2 HTN HLD Chronic, stable, patient denies chest pain Continue aspirin, statin, Zetia, metoprolol, Imdur and losartan (parameters placed on losartan) Rheumatoid arthritis Follows rheumatology, chronic, stable Rinvoq on hold perioperative, resume at discretion of orthopedics, 2 weeks post op DVTppx: SCDS per primary FULL CODE PCP: Magdiel Dispo: per primary Thank you for this consultation. We will follow the patient with you during their hospital stay. You can reach a member of the [facility] Hospitalist Team 29/09 via hospitalist role on tiger text. Pt was seen and examined in collaboration with Dr. Hunt, please see addendum Admission and Anticipated Discharge Date Admission Date: December 15, 2022 Supervising Physician Co-Signing Physician Notes Pt seen and examined by myself, Tami Hunt MD on the day of service. Care was coordinated with Inna Borjas PA-C. Seen this AM, s/p C3-C4 anterior cervical discectomy and fusion States that she was doing well, some nausea but otherwise stable. Was looking forward to going home today. Medically stable, consider rheumatology followup for further evaluation and resumption of meds. Otherwise as above. Subjective Patient was seen and examined on 318. Follow up neck surgery. She is doing well on POD #1. She experienced N/V yesterday after taking pain medications on a clear liquid diet. This has since resolved. She denies f/c/s, chest pain, sob, n/v/d, abd pain. She is being discharged to home today. Review of Systems Review of Systems: All systems reviewed & are unremarkable except as noted in HPI & below Physical Exam Physical Exam: Gen: WD/WN, NAD, A&O x3, petite, F Neck: surgical site w/o erythema, wound intact, MIKA drain with serosang drainage HEENT: Normocephalic, atraumatic, conjunctivae moist, sclerae anicteric, mucous membranes moist. Lung: Clear to Auscultation bilaterally, no wheezes/rales/rhonchi Heart: Regular rate, regular rhythm, no murmurs, rubs, or gallops Abdomen: Soft, NT, ND +BS x 4 Extremities: No edema + RA deformities of b/l hands Skin: Warm, no rash, negative turgor. Results & Data Results & Data Vital Signs (Past 12 Hours) Vital Signs Temp Pulse Resp BP Pulse Ox O2 Del Method O2 Flow Rate 12/16/22 08:31 36.4 C L 79 16 140/75 93 12/16/22 07:46 79 16 93 Room Air 12/16/22 07:08 140/75 12/16/22 07:08 36.4 C L 80 16 98 Room Air 12/16/22 06:17 36.3 C L 72 17 135/70 93 Nasal Cannula 2 12/16/22 04:10 36.3 C L 71 17 132/72 92 Nasal Cannula 2 12/16/22 03:05 77 16 94 Nasal Cannula 1 12/15/22 22:50 102 H 20 94 Room Air 12/16/22 02:04 96 Nasal Cannula 2 12/16/22 02:00 86 L Room Air 12/16/22 02:16 36.3 C L 92 H 18 130/72 97 Nasal Cannula 2 12/15/22 23:43 36.3 C L 88 18 140/72 93 Room Air Laboratory Results Short CBC 12/16/22 Range/Units 05:50 WBC 10.09 (4.8-10.8) K/ul Hgb 11.3 L (12.0-16.0) g/dl Hct 32.2 L (37.0-47.0) % Plt Count 253 (130-400) K/uL BMP 12/16/22 05:50 Sodium 132 L Potassium 4.0 Chloride 99 Carbon Dioxide 25 BUN 9 Creatinine 0.44 L Glucose 169 H Calcium 8.7 Medications Administered Current Inpatient Medications Acetaminophen (Acetaminophen 500 Mg Tab) 1,000 mg PO Q8H PRN PRN Reason: MILD Pain Scale 1,2,3 & Pre PT Stop: 01/14/23 11:12 Last Admin: 12/16/22 00:51 Dose: 1,000 mg Al Hydrox/Mg Hydrox/Simethicone (Aluminum/Magnesium Susp 30 Ml Udc) 30 ml PO Q 6H PRN PRN Reason: Dyspepsia Stop: 01/14/23 11:12 Aspirin (Aspirin 81 Mg Ectab) 81 mg PO HS [facility] Stop: 01/14/23 20:59 Last Admin: 12/15/22 20:38 Dose: 81 mg Atorvastatin Calcium (Atorvastatin 40 Mg Tab) 80 mg PO QAM [facility] Stop: 01/15/23 08:59 Last Admin: 12/16/22 07:28 Dose: 80 mg Bisacodyl (Bisacodyl 10 Mg Supp) 10 mg MS DAILY PRN PRN Reason: Constipation Stop: 01/14/23 11:12 Calcium Carbonate (Calcium Carbonate 1250mg Tab) 1,250 mg PO BID [facility] Stop: 01/14/23 20:59 Last Admin: 12/16/22 07:29 Dose: 1,250 mg Diphenhydramine HCl (Diphenhydramine Capsule 25 Mg Cap) 25 mg PO Q6H PRN PRN Reason: Allergic Rhinitis/Insomnia Stop: 01/14/23 11:12 Ezetimibe (Ezetimibe 10 Mg Tab) 10 mg PO QAM [facility] Stop: 01/15/23 08:59 Last Admin: 12/16/22 07:29 Dose: 10 mg Epinephrine (Racepinephrine 2.25% Nebu Soln 0.5 Ml Vial) 0.5 ml INH NOW PRN PRN Reason: If stridor present Famotidine (Famotidine 20 Mg Tab) 20 mg PO Q12H PRN PRN Reason: Dyspepsia Stop: 01/14/23 11:12 Gabapentin (Gabapentin 300 Mg Cap) 300 mg PO TID PRN PRN Reason: Pain Stop: 01/14/23 11:12 Hydromorphone HCl (Hydromorphone Inj 0.5 Mg/0.5 Ml Syr) 0.5 mg IV Q3H PRN PRN Reason: MODERATE Pain (Scale 4,5,6) & Pre PT Stop: 12/29/22 11:12 Hydromorphone HCl (Hydromorphone Inj 1 Mg/Ml Syringe) 1 mg IV Q3H PRN PRN Reason: SEVERE Pain (Scale 7,8,9,10) Stop: 12/29/22 11:12 Hydroxyzine HCl (Hydroxyzine Hcl 25 Mg Tab) 25 mg PO Q8H PRN PRN Reason: Anxiety Stop: 01/14/23 11:12 Dexamethasone 8 mg/ Syringe 2 mls @ 1 mls/min IV NOW PRN PRN Reason: If stridor present Promethazine HCl 12.5 mg/ (Sodium Chloride) 50.5 mls @ 202 mls/hr IV Q6H PRN PRN Reason: Nausea &/or Vomiting Stop: 01/14/23 11:12 Last Infusion: 12/16/22 00:34 Dose: Infused Acetaminophen (Ofirmev) 1,000 mg in 100 mls @ 400 mls/hr IV Q8H PRN PRN Reason: Pain Rating 1-3 & Pre PT Stop: 12/16/22 11:13 Influenza Virus Vaccine Quadrival (Do Not Administer Flu Vaccine) 1 each N/A PRN PRN PRN Reason: Notification Stop: 01/14/23 11:12 Isosorbide Mononitrate (Isosorbide Conway Extended Rel 30 Mg Tabcr) 30 mg PO QAM [facility] Stop: 01/15/23 08:59 Last Admin: 12/16/22 07:28 Dose: 30 mg Lorazepam (Lorazepam 0.5 Mg Tab) 0.5 mg PO Q8H PRN PRN Reason: Sedation/Anxiety Stop: 01/14/23 11:12 Lorazepam (Lorazepam 2 Mg/1 Ml Vial) 0.5 mg IV Q8H PRN PRN Reason: Sedation/Anxiety Stop: 01/14/23 11:12 Losartan Potassium (Losartan Potassium 25 Mg Tab) 25 mg PO QAM [facility] Stop: 01/15/23 08:59 Last Admin: 12/16/22 07:29 Dose: 25 mg Magnesium Hydroxide (Magnesium Hydroxide Susp 30 Ml Udc) 30 ml PO Q24H PRN PRN Reason: Constipation Stop: 01/14/23 11:12 Metoclopramide HCl (Metoclopramide Hcl Inj 5 Mg/Ml 2 Ml Vial) 10 mg IV Q6H PRN PRN Reason: Nausea &/or Vomiting Stop: 01/14/23 11:12 Metoprolol Tartrate (Metoprolol Tartrate 25 Mg Tab) 25 mg PO BID [facility] Stop: 01/14/23 20:59 Last Admin: 12/16/22 07:29 Dose: 25 mg Miscellaneous (Rinvoq~Order Awaiting Action) 1 each N/A QS [facility] Stop: 01/14/23 15:59 Last Admin: 12/16/22 00:20 Dose: Not Given Naloxone HCl (Naloxone Hcl 0.4 Mg/1 Ml Vial/Carp) 0.1 mg IV Q5M PRN PRN Reason: Oversedation/Resp depression Stop: 01/14/23 11:12 Ondansetron HCl (Ondansetron Inj 2 Mg/Ml 2 Ml Vial) 4 mg IV Q6H PRN PRN Reason: Nausea &/or Vomiting Stop: 01/14/23 11:12 Last Admin: 12/15/22 20:50 Dose: 4 mg Ondansetron HCl (Ondansetron 4 Mg Od Tab) 4 mg PO Q6H PRN PRN Reason: Nausea Stop: 01/14/23 11:12 Oxycodone HCl (Oxycodone Hcl Ir 5 Mg Tab (Immediate Release)) 5 - 10 mg PO Q4H PRN PRN Reason: Pain & Pre PT Stop: 12/29/22 11:12 Pneumococcal Polyvalent Vaccine (Do Not Administer Pneumococcal Vaccine) 1 each N/A PRN PRN PRN Reason: Notification Stop: 01/14/23 11:12 Polyethylene Glycol (Polyethylene (Miralax) 17 Gm Pack) 17 gm PO Q6 [facility] Stop: 01/15/23 05:59 Last Admin: 12/16/22 06:26 Dose: 17 gm Senna/Docusate Sodium (Docusate Sodium/Senna 50/8.6mg Tab) 2 tab PO HS [facility] Stop: 01/14/23 20:59 Last Admin: 12/15/22 20:38 Dose: 2 tab Sodium Biphosphate/Sodium Phosphate (Sod Phosphate/Sod Biphosphate Enema 132 Ml Btl) 132 ml MS ONE PRN PRN Reason: Constipation Stop: 01/14/23 11:12 Tramadol HCl (Tramadol Hcl 50 Mg Tablet) 50 - 100 mg PO Q4H PRN PRN Reason: Moderate-Severe pain & Pre PT Stop: 01/14/23 11:12 Last Admin: 12/15/22 16:37 Dose: 100 mg Vitamin B Complex (Vitamin B Complex Tab) 1 tab PO EL Stop: 01/14/23 20:59 Last Admin: 12/15/22 20:38 Dose: 1 tab Vitamin D (Cholecalciferol 1,000 Units 25 Mcg Tab) 2,000 units PO [facility] Stop: 01/14/23 20:59 Last Admin: 12/15/22 20:38 Dose: 2,000 units
== END 2022-12-16 10:45 | disposition home or self-care (01) | DRG 473 ==
LOC: ASU 06:06 → SUATTDRO 09:27 → 3E 09:27

== ENCOUNTER 2023-09-16 08:12 | Inpatient (IN) ==
--- NOTE | 2023-08-26 12:29 | PAT Medication Instructions ---
Medication Instructions Date of Service August 26, 2023 Home Medications aspirin 81 mg tablet,delayed release (Ecotrin Low Strength) 81 mg PO HS denosumab 60 mg/mL subcutaneous syringe (Prolia) 60 mg subcut UD metoprolol tartrate 25 mg tablet 25 mg PO BID atorvastatin 80 mg tablet 80 mg PO QAM calcium 600 mg capsule 600 mg PO BID cholecalciferol (vitamin D3) 50 mcg (2,000 unit) capsule (Vitamin D3) 50 mcg PO HS ezetimibe 10 mg tablet 10 mg PO QAM isosorbide mononitrate 30 mg tablet,extended release 24 hr 30 mg PO QAM losartan 25 mg tablet 25 mg PO QAM ondansetron 4 mg disintegrating tablet 4 mg PO UD PRN prednisone 10 mg tablet 10 mg PO UD PRN prednisone 5 mg tablet 5 mg PO UD PRN tramadol 50 mg tablet 50 - 100 mg PO UD PRN vitamin B complex 1 tab PO HS acetaminophen 500 mg tablet 1,000 mg PO UD PRN gabapentin 300 mg capsule 300 mg PO TID PRN abatacept 125 mg/mL subcutaneous syringe (Orencia) 0 mg subcut WK coQ10 (ubiquinol) 100 mg capsule 100 mg PO QAM krill oil 500 mg capsule 500 mg PO HS Continue as directed ondansetron 4 mg disintegrating tablet 4 mg PO UD PRN(if needed) prednisone 10 mg tablet 10 mg PO UD PRN(if needed) prednisone 5 mg tablet 5 mg PO UD PRN(if needed) tramadol 50 mg tablet 50 - 100 mg PO UD PRN(if needed) acetaminophen 500 mg tablet 1,000 mg PO UD PRN(if needed) ASK your prescriber and surgeon aspirin 81 mg tablet,delayed release (Ecotrin Low Strength) 81 mg PO HS abatacept 125 mg/mL subcutaneous syringe (Orencia) 0 mg subcut WK STOP taking 2 weeks before surgery (or as soon as possible if surgery is within 2 weeks) coQ10 (ubiquinol) 100 mg capsule 100 mg PO QAM krill oil 500 mg capsule 500 mg PO HS DO NOT take the morning of surgery denosumab 60 mg/mL subcutaneous syringe (Prolia) 60 mg subcut UD calcium 600 mg capsule 600 mg PO BID losartan 25 mg tablet 25 mg PO QAM Take morning of surgery With a small sip of water, OTHERWISE NOTHING TO EAT OR DRINK AFTER MIDNIGHT: metoprolol tartrate 25 mg tablet 25 mg PO BID atorvastatin 80 mg tablet 80 mg PO QAM ezetimibe 10 mg tablet 10 mg PO QAM isosorbide mononitrate 30 mg tablet,extended release 24 hr 30 mg PO QAM gabapentin 300 mg capsule 300 mg PO TID PRN(if needed) Take evening before surgery metoprolol tartrate 25 mg tablet 25 mg PO BID calcium 600 mg capsule 600 mg PO BID cholecalciferol (vitamin D3) 50 mcg (2,000 unit) capsule (Vitamin D3) 50 mcg PO HS vitamin B complex 1 tab PO HS gabapentin 300 mg capsule 300 mg PO TID PRN(if needed) Other Notes If you have any questions please call us at [phone] or [phone] or [phone] or [phone]
--- NOTE | 2023-08-28 12:11 | Anesthesiology Consultation ---
Date of Service August 28, 2023 Assessment & Plan (1) Encounter for pre-operative examination: Chart Review Chart Review: Acceptable Risk for Surgery (pending surgeon ordered PCP clearance ) and Patient seen in Pre Admission Testing - Awaiting PCP clearance 09/01/23 ([facility]) Pt requesting manual BPs only- patient is aware this is not possible perioperatively but could do manual BPs pre and post operatively. ASU informed and voices understanding- will document in OR notification. Pt states that with previous surgery in 2015- machine BP cuff caused her BP to elevate to emergently high BP level (did not have stroke) in post operative area. Was given medications to improve BP but this caused significant hypotension in which she as admitted for four days to try to correct. Pt would like to anesthesia to know- somewhat sensitive to BP medications. Did find records from 2015 surgery (See below) ACDF C3-4 with anterior instrumentation 2315= Done under GA with Grade 2 view with Glidescope #4. ETT #7.0. PACU: BP elevated. Labetalol given. (No significant issues noted to anesthesia progress note and medical progress note during admission) Chlorhexidine allergy- no wipes given at PAT appt Per PAT appt on 11/26/22, no recent illness/disease exposures, illness related symptoms, or recent illness/disease positive tests. Will leave to surgeon's discretion if preop Covid testing needed Patient seen by cardiology 08/27/23= Patient presents for preoperative risk stratification regarding upcoming neck surgery under general anesthesia. Patient feeling well from cardiac standpoint. Main concern is regarding neck pain. CADmultivessel coronary artery disease. History of STEMI in 2019 with stage ELSY to mid RCA and proximal circumflex. Stable/no angina. EKG reviewed from today. Hypertensioncontrolledcontinue current meds. Dyslipide miacontrolled. Preoperative cardiovascular risk examinationin terms of preop risk assessment, per Jorge criteria, patient was counseled that she would be placed at low to moderate risk (less than 6.6%) for any adverse perioperative cardiovascular events associated with neck surgery. Patient is on a good medication regimen and no other cardiac testing or intervention would further lower that risk... Patient states she understands and is accepting of that risk and wishes to proceed with surgery. Given history of coronary disease and stenting recommend continuation of aspirin perioperatively however the bleeding risk outweighs the benefit aspirin can be held for 7 days and resumed when clinically stable by the recommendations of her surgeon. All other cardiac medications should be continued perioperatively. C3-4 ACDF, C2-3 hardware removal- neuro monitoring 12/15/22= Done under GA with Grade 1 view with Glidescope #3. ETT #6.5. Atraumatic x 1 Teaching & Discussion Pre-Anesthesia Teaching/Discussion Notes: Instructed NPO after midnight before surgery,except medications with 15 cc of water. Medication instructions provided according to the PAT guidelines. History Surgery Operation Date: 09/16/23 09:35 Proposed Procedures p C3-C6 Posterior Decompression and Fusion with Spinal Cord Monitoring - David Valero, Height/Weight Height: 4 ft 10 in Weight: 55.6 kg Allergies Allergy/AdvReac Type Severity Reaction Status Date / Time chlorhexidine Allergy Severe REDNESS/ITC Verified 08/26/23 11:35 ARBEN adhesive Allergy Unknown ALLERGIC Verified 08/26/23 11:35 TO TAPE, HOWEVER PAPER TAPE IS OK Medications Home Medications Medication Instructions Recorded Confirmed Last Taken aspirin 81 mg tablet,delayed 81 mg PO HS 05/25/19 08/26/23 12/14/22 23:00 release (Ecotrin Low Strength) denosumab 60 mg/mL subcutaneous 60 mg subcut UD 05/25/19 08/26/23 10/21/22 syringe (Prolia) metoprolol tartrate 25 mg tablet 25 mg PO BID 05/25/19 08/26/23 12/15/22 04:15 atorvastatin 80 mg tablet 80 mg PO QAM 11/21/22 08/26/23 12/15/22 04:15 calcium 600 mg capsule 600 mg PO BID 11/21/22 08/26/23 12/15/22 04:15 cholecalciferol (vitamin D3) 50 50 mcg PO HS 11/21/22 08/26/23 12/14/22 23:00 mcg (2,000 unit) capsule (Vitamin D3) ezetimibe 10 mg tablet 10 mg PO QAM 11/21/22 08/26/23 12/15/22 04:15 isosorbide mononitrate 30 mg 30 mg PO QAM 11/21/22 08/26/23 12/15/22 04:15 tablet,extended release 24 hr losartan 25 mg tablet 25 mg PO QAM 11/21/22 08/26/23 12/15/22 04:15 ondansetron 4 mg disintegrating 4 mg PO UD PRN taken with tramadol 11/21/22 08/26/23 Unknown tablet when taken prednisone 10 mg tablet 10 mg PO UD PRN ra flares 11/21/22 08/26/23 Unknown prednisone 5 mg tablet 5 mg PO UD PRN ra flares 11/21/22 08/26/23 Unknown tramadol 50 mg tablet 50 - 100 mg PO UD PRN Pain 11/21/22 08/26/23 Unknown vitamin B complex 1 tab PO HS 11/21/22 08/26/23 12/14/22 23:00 acetaminophen 500 mg tablet 1,000 mg PO UD PRN Pain 12/15/22 08/26/23 12/14/22 08:00 gabapentin 300 mg capsule 300 mg PO TID PRN Pain 12/15/22 08/26/23 12/14/22 23:00 abatacept 125 mg/mL subcutaneous 0 mg subcut WK 08/26/23 08/26/23 Unknown syringe (Orencia) coQ10 (ubiquinol) 100 mg capsule 100 mg PO QAM 08/26/23 08/26/23 Unknown krill oil 500 mg capsule 500 mg PO HS 08/26/23 08/26/23 Unknown Past Medical History Medical History (Updated 08/31/23 @ 09:24 by Alley Swanson PA-C) 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 Dyslipidemia History of anesthesia reaction - Pt requesting manual BP checks only - had episode possibly back in 2014 after surgery- machine BP cuff caused BP to increase to emergently elevated levels in post op area- was given antihypertensives which then caused severe hypotension- patient was admitted x 4 days in attempts to get BP back up to baseline (usually has low normal BP per patient) - No significant issues in regards to BP/anesthesia reactions with 12/2022 surgery (did get manual BP checks pre and post operatively) History of pulmonary embolism (1984) s/p c/s. No re-occurences. Insomnia Osteoarthritis bilat mika, right worse. Osteoporosis Rheumatoid arthritis Follows with rheum Stable at this time STEMI (ST elevation myocardial infarction) 02/05/19- 2 ELSY mid RCA. 02/07/19 1 ELSY to proximal Circumflex Subclavian artery disease Patient denies Per records "PVD with subclavian stenosis" Per 2019 chest CTA= Mixed plaque of the proximal right subclavian artery results in 50% luminal narrowing. Exercise / Class Metabolic Activity II 4-5 Yardwork/Stairs/Walk up hill (one flight of stairs - no chest pain or SOB ) Past Family History Family History Mother Diabetes Heart disease Past Surgical History Surgical History History of History of cardiac cath 2018, for [place], [facility], x3 stents; f/u dr. umaña [facility] and maninder cardenas [facility] History of esophagogastroduodenoscopy (EGD) History of hysterectomy w/appendectomy History of right shoulder replacement History of total bilateral knee replacement History of total left hip replacement History of total shoulder replacement left Hx of colonoscopy S/P cervical spinal fusion x2 - most recent Dec 2022. Past Anesthesia History No Hx of Anesthesia Complications (does have issues with machine BP cuff and sensitive to antihypertensive medication ) and No Family Hx of Anesthesia Complications History of PONV No Hx of PONV and No Hx of Motion Sickness STOP BANG Total 1 Social History Smoking Status: Never smoker Do You Dip or Chew Tobacco: No Hx Alcohol Use: No Hx Substance Use: No substance use type: does not use Review of Systems - Hx snoring- no RAMRIO - per patient Patient denies chest pain, shortness of breath, dyspnea on exertion, reflux, cough, wheezing, palpitations. No hx of seizures, stroke. No hx of blood clots or blood transfusions Physical Exam Vital Signs VITALS BP 140/70 (manual) P 71 TEMP 98.2 SP02 95% RESP 16 Constitutional no acute distress ENMT Mouth: + small oral opening; no TMJ clicking Thyromental Distance: < 3.5 Finger Breadths (2.5) Mallampati Class: III Full denture on top Missing all bottom teeth Neck + limited neck extension (significant) Respiratory normal respiratory effort; no respiratory distress Auscultation: lungs clear to auscultation bilaterally; no wheezes Cardiovascular Rate/Rhythm: regular rate and regular rhythm Heart Sounds: no murmur Vessels: no carotid bruit Musculoskeletal Spine: no pain with cervical ROM Extremities: extremities normal to inspection Psychiatric Orientation: alert Lab Results Anesthesia Preop Results Results Anesthesia Widget: WBC 8.98 K/ul (4.8-10.8) 08/28/23 Hgb 12.9 g/dl (12.0-16.0) 08/28/23 Hct 37.7 % (37.0-47.0) 08/28/23 Plt 198 K/uL (130-400) 08/28/23 Na 139 mmol/L (136-145) 08/28/23 K 3.4 mmol/L (3.5-5.1) L 08/28/23 Cl 105 mmol/L (98-107) 08/28/23 CO2 27 mmol/L (21-32) 08/28/23 BUN 14 mg/dl (6-23) 08/28/23 Creat 0.57 mg/dl (0.6-1.2) L 08/28/23 Glucose Level 88 mg/dl (70-99(Fasting)) 08/28/23 PT 11.1 Seconds (9.0-12.0) 08/28/23 PTT 23 Seconds (21-31) 08/28/23 INR 1.0 (0.9-1.1) 08/28/23 Urine Color Yellow 08/28/23 Urine Appearance Clear (Clear) 08/28/23 Urine pH 6.0 (4.5-7.5) 08/28/23 Urine Specific Stirum 1.014 (1.000-1.030) 08/28/23 Urine Protein Negative (Negative) 08/28/23 Urine Glucose (UA) Negative (Negative) 08/28/23 Urine Ketones Negative (Negative) 08/28/23 Urine Blood Negative (Negative) 08/28/23 Urine Nitrite Negative (Negative) 08/28/23 Urine Bilirubin Negative (Negative) 08/28/23 Urine Urobilinogen Negative (Negative) 08/28/23 Urine Leukocyte Esterase Negative (Negative) 08/28/23 Blood Type AB Negative 08/28/23 Antibody Screen NEGATIVE 08/28/23 Testing Electrocardiogram Date: 08/17/23 Findings: + NSR @ (66bpm) Normal EKG per cardio Chest X-Ray Date: 08/28/23 FINDINGS: PA and lateral chest radiographs are compared to chest x-ray and chest CT dated 05/25/2019. The heart is enlarged noting atherosclerotic calcification of the thoracic aorta. The pulmonary vasculature is noncongested. Chronic interstitial thickening is similar to previous. There is mild bibasilar scarring/atelectasis. No airspace consolidation or pleural effusion is identified. There is no pneumothorax. The skeletal structures are osteopenic. The bony thorax appears intact. Bilateral shoulder arthroplasties are in place. Fusion hardware is seen in the cervical spine. IMPRESSION: Cardiomegaly with no active disease in the chest. Echocardiogram Date: 05/26/19 EF: 55-60% LV Function: normal Other Findings: + LVH (mild/concentric ) and + diastolic dysfunction (Grade I ) Small sized inferior wall abnormality with akinesis of basal inferior segment AV sclerosis is mild without significant AV stenosis Akinesis of basal inferior hunt consistent with the patient's history of previous right coronary artery territory infarction. Compared to the prior study dated 02/05/2019there has been an interval improvement in the LV systolic function Cardiac Catheterization Date: 02/05/19 Findings: LM -Short, medium caliber, luminal irregularities LAD -small to medium caliber, calcified, 60 to 70% mid segment disease, 60% latemid diffuse disease. 2 small diagonals with moderate diffuse disease Circumflex -medium caliber, 80% mid stenosis, 40% latemid stenosis, 50% distal stenosis at takeoff of OM 2. 50 to 60% proximal stenosis of medium caliber, terminal, bifurcating left PLB. RCAlarge caliber, dominant, 100% acute mid occlusion Summary: 1. Acute 100% mid RCA occlusion 2. Severe multi--vessel non-culprit coronary artery disease -80% mid circumflex 60 to 70% mid LAD 3. Normal intracardiac filling pressure 4. Transient bradycardia/hypotension with reperfusion which responded to atropine/IV fluids. 5. Successful PCI of mid RCA occlusion with 2 overlapping drug-eluting stents (4.0 x 8, 3.5 x 28 Xience Palmira). Cardiac Catheterization 02/07/19: Summary: 1. Successful PCI of proximal to mid circumflex with single drug-eluting stent (3.0 x 15 mm Aly; postdilated with 3.25 NC). Recommendations: To PCU for continued monitoring On aspirin, ticagrelor, continue dual-antiplatelet therapy for at least one year Continue statin, and ASCVD risk factor modification Cervical Spine Date: 11/26/22 FINDINGS: Three lateral views of the cervical spine are obtained with the patient in neutral, lateral, and extension positions. The skeletal structures are osteopenic. There is no radiographic evidence of acute fracture on these lateral views. Vertebral body height appears maintained throughout the cervical spine. There is straightening of the cervical lordosis with reversal of the lower cervical region. The atlantodens articulation appears maintained. There is minimal anterolisthesis at C4-C5. This increases to 5 mm on the flexion images. Alignment is otherwise maintained. The spinous processes appear intact. There is postsurgical change from discectomy at C3-C4 with anterior fusion at this level. Moderate to advanced disc space narrowing seen at the remaining cervical levels. Anterior osteophytes are seen throughout. Posterior disc osteophyte complexes are seen in the lower cervical region. There is multilevel facet arthropathy. The prevertebral soft tissues are normal as imaged. Shoulder arthroplasties are in place. IMPRESSION: 1. No acute bony abnormality is seen involving the cervical spine on these lateral projections. 2. There is increasing anterolisthesis at C4-C5 seen on the flexion views. 3. Osteopenia with spondylotic and postsurgical change as above. Other Testing Chest CTA 05/25/19 = Cardiomegaly without thoracic aortic aneurysm or dissection. Moderate atherosclerotic calcifications of the thoracic aorta with short segment ulcerative plaque of the proximal left subclavian artery. Mixed plaque of the proximal right subclavian artery results in 50% luminal narrowing. Bibasilar o pacities, right greater than left suggest atelectasis.
[~2023-09-16 08:12] MED LIST changes: -ACETAMINOPHEN 500 MG TAB PO SCH; -CeleBREX 200 MG CAP PO SCH; +DEXAMETHASONE SOD INJ 4 MG/ML VIAL ONE; -GABAPENTIN 300 MG CAP PO SCH; +GLYCOPYRROLATE 0.2 MG/ML VIAL ONE; +LIDOCAINE 2% 2 ML VIAL/AMP(20MG/ML) INFIL ONE; -LR 15ML/HR IV SCH; -LR 60ML/HR IV SCH; +MIDAZOLAM HCL 1 MG/ML 2ML VIAL ONE; +ONDANSETRON INJ 2 MG/ML 2 ML VIAL ONE; +PROPOFOL IV EMULSION 10 MG/ML 20 ML VIAL IV ONE; +ROCURONIUM BROMIDE 10 MG/ML 5 ML VIAL IV ONE; +SUGAMMADEX SODIUM 200 MG/2 ML VIAL IV ONE; -ceFAZolin 2000MG 2,000 MG/15 ML SYR IV SCH; +fentaNYL citrate PF 100 MCG/2 ML VIAL ONE
--- NOTE | 2023-09-16 09:02 | History & Physical Bridge Note ---
Date of Service September 16, 2023 History & Physical Bridge Note I have examined the patient, reviewed the History & Physical and in the interval since the performance of the History & Physical I have noted the following changes of clinical significance: no changes noted
--- NOTE | 2023-09-16 09:03 | History & Physical Report ---
Date of Service September 16, 2023 Assessment & Plan (1) Myelopathy concurrent with and due to spinal stenosis of cervical region: Plan: C3-C6 posterior decompression and fusion History of Present Illness Chief Complaint: Neck and arm pain Primary Care Provider: Doron Veloz DO This is a 68-year-old female well-known to me with cervical myelopathy. She is here for posterior decompression fusion. Allergies Allergy/AdvReac Type Severity Reaction Status Date / Time chlorhexidine Allergy Severe REDNESS/ITC Verified 09/16/23 08:42 ARBEN adhesive Allergy Unknown ALLERGIC Verified 09/16/23 08:42 TO TAPE, HOWEVER PAPER TAPE IS OK Home Medications Medication Instructions Recorded Confirmed Type aspirin 81 mg tablet,delayed 81 mg PO HS 05/25/19 09/16/23 History release (Ecotrin Low Strength) denosumab 60 mg/mL subcutaneous 60 mg subcut UD 05/25/19 09/16/23 History syringe (Prolia) metoprolol tartrate 25 mg tablet 25 mg PO BID 05/25/19 09/16/23 History atorvastatin 80 mg tablet 80 mg PO QAM 11/21/22 09/16/23 History calcium 600 mg capsule 600 mg PO BID 11/21/22 09/16/23 History cholecalciferol (vitamin D3) 50 50 mcg PO HS 11/21/22 09/16/23 History mcg (2,000 unit) capsule (Vitamin D3) ezetimibe 10 mg tablet 10 mg PO QAM 11/21/22 09/16/23 History isosorbide mononitrate 30 mg 30 mg PO QAM 11/21/22 09/16/23 History tablet,extended release 24 hr losartan 25 mg tablet 25 mg PO QAM 11/21/22 09/16/23 History ondansetron 4 mg disintegrating 4 mg PO UD PRN taken with tramadol 11/21/22 09/16/23 History tablet when taken prednisone 10 mg tablet 10 mg PO UD PRN ra flares 11/21/22 09/16/23 History prednisone 5 mg tablet 5 mg PO UD PRN ra flares 11/21/22 09/16/23 History tramadol 50 mg tablet 50 - 100 mg PO UD PRN Pain 11/21/22 09/16/23 History vitamin B complex 1 tab PO HS 11/21/22 09/16/23 History acetaminophen 500 mg tablet 1,000 mg PO UD PRN Pain 12/15/22 09/16/23 History gabapentin 300 mg capsule 300 mg PO TID PRN Pain 12/15/22 09/16/23 History abatacept 125 mg/mL subcutaneous 0 mg subcut WK 08/26/23 09/16/23 History syringe (Orencia) coQ10 (ubiquinol) 100 mg capsule 100 mg PO QAM 08/26/23 09/16/23 History krill oil 500 mg capsule 500 mg PO HS 08/26/23 09/16/23 History baclofen 10 mg tablet 10 mg PO BID 09/16/23 09/16/23 History Past Med/Surg History Problem List (Updated 09/16/23 @ 09:02 by David Valero DO) Myelopathy 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 No re-occurences. Osteoarthritis bilat mika, right worse. Insomnia Subclavian artery disease Patient denies Per records "PVD with subclavian stenosis" Per 2019 chest CTA= Mixed plaque of the proximal right subclavian artery results in 50% luminal narrowing. Chronic low blood pressure "my entire life, normal for me" 104/66 average. Osteoporosis Rheumatoid arthritis Follows with rheum Stable at this time Cervical stenosis of spine History of anesthesia reaction - Pt requesting manual BP checks only - had episode possibly back in 2014 after surgery- machine BP cuff caused BP to increase to emergently elevated levels in post op area- was given antihypertensives which then caused severe hypotension- patient was admitted x 4 days in attempts to get BP back up to baseline (usually has low normal BP per patient) - No significant issues in regards to BP/anesthesia reactions with 12/2022 surgery (did get manual BP checks pre and post operatively) 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 02/07/19 1 ELSY to proximal Circumflex Surgical History History of History of esophagogastroduodenoscopy (EGD) Hx of colonoscopy History of cardiac cath 2018, for OR, [facility], x3 stents; f/u dr. umaña [facility] and maninder cardenas [facility] History of total shoulder replacement left History of hysterectomy w/appendectomy History of total left hip replacement History of right shoulder replacement S/P cervical spinal fusion x2 - most recent Dec 2022. History of total bilateral knee replacement Family History Mother Diabetes Heart disease Social History Smoking Status: Never smoker Second Hand Exposure: No; Do You Dip or Chew Tobacco: No; Hx Alcohol Use: No Hx Substance Use: No Preferred Language: Malay Communication Ability: Effective Interactive Media Marketing Director Required: No Beliefs That Will Affect Care: None marital status: Current Living Situation: Spouse Feels Safe at Home: Yes Assistive Devices: Denture - Upper and Other Assistive Devices Comment: reading glasses Physical Exam Physical Exam: Patient is alert and oriented Heart regular in rhythm Lungs clear
[2023-09-16] MEDS: GABAPENTIN 300 MG CAP PO SCH (09:15)
[2023-09-16] MEDS: LR 15ML/HR IV SCH (09:15)
[2023-09-16] MEDS: ACETAMINOPHEN 500 MG TAB PO SCH (09:15)
[2023-09-16] MEDS: CeleBREX 200 MG CAP PO SCH (09:15)
[2023-09-16] MEDS: LR 60ML/HR IV SCH (09:15)
[2023-09-16] MEDS ORDERED: ONDANSETRON INJ 2 MG/ML 2 ML VIAL IV PRN ×2 (09:33→13:38)
[2023-09-16] MEDS ORDERED: ePHEDrine sulfate 50 MG/ML AMP IV PRN (09:33)
[2023-09-16] MEDS ORDERED: ATROPINE SULFATE 0.1 MG/ML 10ML SYR IV PRN (09:33)
[2023-09-16] MEDS: ceFAZolin 2000MG 2,000 MG/15 ML SYR IV SCH (09:37)
[2023-09-16] MEDS: BACITRACIN OINT 14 GM TUBE ONE (10:17)
[2023-09-16] MEDS: BUPIVACAINE/EPINEPHRINE 0.25% 1:200,000 30 ML VIAL ONE ×2 (10:20→10:55)
[2023-09-16] MEDS: FLOSEAL HEMOSTATIC MATRIX 10ML TOP ONE (11:15)
[2023-09-16] MEDS: ceFAZolin 330 MG/ML 1 GM VIAL ONE (11:40)
[2023-09-16] MEDS ORDERED: fentaNYL citrate PF 100 MCG/2 ML VIAL ONE (11:42)
[2023-09-16] MEDS ORDERED: ePHEDrine sulfate 50 MG/5 ML SYR ONE (11:45)
[2023-09-16] MEDS ORDERED: PHENYLEPHRINE 100MCG/ML 10ML SYR IV ONE (11:45)
--- NOTE | 2023-09-16 11:46 | Operative Report ---
Post Operative Report Pre & Post Diagnosis Operation Date: 09/16/23 09:35 Pre-Op Diagnosis: Myelopathy concurrent with and due to spinal stenosis of cervical region Post-Op Diagnosis: Myelopathy concurrent with and due to spinal stenosis of cervical region I identified the patient and participated in the time-out.: Yes Procedure Operation Date: 09/16/23 09:35 Actual Procedures #1 posterior cervical decompression C4-C5 and C6. #2 posterior spinal fusion C3-C6. #3 placement of globus posterior instrumentation C3-C6. #4 placement infuse collagen sponge combined with Koros bone graft in the posterior gutters. Surgeon David Valero, Cardiovascular Specialist Savaan Martel Estimated Blood Loss 100 Findings Consistent with Post-Op Diagnosis Specimens None Indications This is a 68-year-old female known to me the presents above-mentioned diagnosis and is here for surgical invention. Description of Procedure Patient was met with identified informed consent obtained. Patient was then taken to the operative suite underwent ablation placed in the prone position on the chest padded bolsters with a 3 prong Olivo char filter tank tender head. The posterior cervical thoracic spine was then prepped and draped in normal sterile fashion. Sharp dissection with the assistance of Bovie cautery from down to and exposing the lamina and lateral masses of C3-C4-C5 and C6. I then placed lateral mass screws in C3 C5 and C6 bilaterally with the assistance of fluoroscopy in the proper size suly placed. Then performed a complete laminectomy of C6 C5 and C4 to decompress the canal. The lateral masses were then burred to subcortical bleeding bone infuse collagen sponge combined with Koros was placed over the lateral masses of 15 round MIKA inserted. The incision was then closed with 1 Vicryl to fascia 2-0 Vicryl subcutaneously and 4 Monocryl for final closure. Steri-Strips sterile dressings placed. Patient awakened taken to PACU in stable condition. Please note Savana Martel was present at the entire procedure involved in patient positioning complex portions of the final skin closure. Spinal cord monitoring was utilized at the procedure no changes noted. I attest to the content of the Intraoperative Record and any orders documented therein. Any exceptions are noted below.
--- NOTE | 2023-09-16 12:16 | Fluoroscopy Report ---
FL cervical 2-3V CLINICAL HISTORY: C3-C6 POSTERIOR DECOMP/FUSION COMPARISON STUDY: Fluoroscopic images 12/15/2022 FLUOROSCOPY TIME: 21.5 seconds FLUOROSCOPY IMAGES: 2 EXPOSURE DOSE: 3.74 mGy FINDINGS: Posterior interbody rods and screw fusion, suboptimally evaluated secondary to positioning. Anterior plate and screw fusion with discectomy again noted. Endotracheal tube with surgical drainag e catheter. No unexpected opaque foreign bodies identified. IMPRESSION: Fluoroscopic assistance as above. ACT 112: Negative or not required by law. Electronically signed by: Heri Gates M.D. 09/16/2023 12:14 PM
[2023-09-16] MEDS: HYDROmorphone INJ 2 MG/ML SYR/VIAL IV PRN (12:48)
[2023-09-16] MEDS ORDERED: DO NOT ADMINISTER FLU VACCINE PRN (13:38)
[2023-09-16] MEDS ORDERED: LORazepam 0.5 MG in SYRINGE 0.25 ML IV PRN (13:38)
[2023-09-16] MEDS ORDERED: SOD PHOSPHATE/SOD BIPHOSPHATE ENEMA 132 ML BTL PR PRN (13:38)
[2023-09-16] MEDS ORDERED: hydrOXYzine HCl 25 MG TAB PO PRN (13:38)
[2023-09-16] MEDS ORDERED: PROMETHAZINE HCL 12.5 MG in SODIUM CHLORIDE 0.9% 50 ML IV PRN (13:38)
[2023-09-16] MEDS ORDERED: LORazepam 0.5 MG TAB PO PRN (13:38)
[2023-09-16] MEDS ORDERED: bisacodyL 10 MG SUPP PR PRN (13:38)
[2023-09-16] MEDS ORDERED: diphenhydrAMINE Capsule 25 MG CAP PO PRN (13:38)
[2023-09-16] MEDS ORDERED: dexAMETHasone 8 MG in SYRINGE 0 ML IV PRN (13:38)
[2023-09-16] MEDS ORDERED: DO NOT ADMINISTER PNEUMOCOCCAL VACCINE PRN (13:38)
[2023-09-16] MEDS ORDERED: METOCLOPRAMIDE HCL INJ 5 MG/ML 2 ML VIAL IV PRN (13:38)
[2023-09-16] MEDS ORDERED: RACEPINEPHRINE 2.25% NEBU SOLN 0.5 ML VIAL INH PRN (13:38)
[2023-09-16] MEDS ORDERED: NALOXONE HCL 0.4 MG/1 ML VIAL/CARP IV PRN (13:38)
[2023-09-16] MEDS ORDERED: HYDROmorphone INJ 0.5 MG/0.5 ML SYR IV PRN (13:38)
[2023-09-16] MEDS ORDERED: ALUMINUM/MAGNESIUM SUSP 30 ML UDC PO PRN (13:38)
[2023-09-16] MEDS ORDERED: oxyCODONE HCL IR 5 MG TAB (IMMEDIATE RELEASE) PO PRN (13:38)
[2023-09-16] MEDS ORDERED: MAGNESIUM HYDROXIDE SUSP 30 ML UDC PO PRN (13:38)
[2023-09-16] MEDS: HYDROmorphone INJ 1 MG/ML SYRINGE IV PRN (13:49)
[2023-09-16] MEDS: LACTATED RINGER'S 1,000 ML IV SCH (13:57)
--- NOTE | 2023-09-16 14:39 | Consultation ---
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 Valero. Cervical stenosis of spinal canal Status post C3-C6 posterior decompression fusion by Dr. Valero, POD#0 EBL 100ml Pain/wound management per orthopedics Diet as per orthopedic CAD with history of coronary artery stent x2 HTN HLD Chronic, stable, patient denies chest pain Continue aspirin, statin, Zetia, metoprolol, Imdur and losartan (parameters placed on losartan) Rheumatoid arthritis Follows rheumatology, chronic, stable On orencia as OP she has been taking prednisone consistently alternating between 5mg and 10mg, currently on IV decadron pt to see Rheum in october as she feels orencia is not working Senile Osteoporosis on Prolia, continue vit D and ca DVTppx: SCDS per primary FULL CODE PCP: Magdiel Dispo: per primary Thank you for this consultation. We will follow the patient with you during their hospital stay. You can reach a member of the [facility] Hospitalist Team 29/09 via hospitalist role on tiger text. Pt was seen and examined in collaboration with Dr. Santacruz, please see addendum Supervising Physician Co-Signing Physician Notes Attending Addendum: Case reviewed with the advanced practitioner. I have personally performed a history and physical examination on the patient. I have reviewed the advanced practitioner's documentation on the date of service referenced in note, and I agree with, and take responsibility for the plan of care. please refer to her notes for full details patient seen and examined, records reviewed by myself as well diagnoses and plan of care as per advanced practitioner's notes Carlos Santacruz MD History of Present Illness Requesting Physician: Dr. Valero Reason for Consultation: Post op medical management Attending Physician: David Valero, DO History of Present Illness This is a 68yr old F who has significant PMH of CAD with hx of RCA stent 02/05/19 and circumflex stent 02/07/19, Rheumatoid arthritis, subclavian artery stenosis, PVD, hx of LAUREL, hx of cervical spine fusion, osteoporosis who presents for elective neck surgery by Dr. Valero. She underwent a C3-C6 posterior decompression/fusion and tolerated procedure well. Her is at bedside who also helps elicit history. Her Left arm pain is completely gone, but she now has a new R arm pain that goes from base of R ear to R shoulder. It was a 8/10 but after valium now a 4/10 and she feels valium is wearing off. She is requesting gabapentin. She denies any f/c/s, chest pain, sob, n/v/d, abd pain. Outpatient records were reviewed. She saw PCP Dr. Veloz on August 31 for pre op clearance. Allergies Allergy/AdvReac Type Severity Reaction Status Date / Time chlorhexidine Allergy Severe REDNESS/ITC Verified 09/16/23 08:42 ARBEN adhesive Allergy Unknown ALLERGIC Verified 09/16/23 08:42 TO TAPE, HOWEVER PAPER TAPE IS OK Home Medications Medication Instructions Recorded Confirmed Type aspirin 81 mg tablet,delayed 81 mg PO HS 05/25/19 09/16/23 History release (Ecotrin Low Strength) denosumab 60 mg/mL subcutaneous 60 mg subcut UD 05/25/19 09/16/23 History syringe (Prolia) metoprolol tartrate 25 mg tablet 25 mg PO BID 05/25/19 09/16/23 History atorvastatin 80 mg tablet 80 mg PO QAM 11/21/22 09/16/23 History calcium 600 mg capsule 600 mg PO BID 11/21/22 09/16/23 History cholecalciferol (vitamin D3) 50 50 mcg PO HS 11/21/22 09/16/23 History mcg (2,000 unit) capsule (Vitamin D3) ezetimibe 10 mg tablet 10 mg PO QAM 11/21/22 09/16/23 History isosorbide mononitrate 30 mg 30 mg PO QAM 11/21/22 09/16/23 History tablet,extended release 24 hr losartan 25 mg tablet 25 mg PO QAM 11/21/22 09/16/23 History ondansetron 4 mg disintegrating 4 mg PO UD PRN taken with tramadol 11/21/22 09/16/23 History tablet when taken prednisone 10 mg tablet 10 mg PO UD PRN ra flares 11/21/22 09/16/23 History prednisone 5 mg tablet 5 mg PO UD PRN ra flares 11/21/22 09/16/23 History tramadol 50 mg tablet 50 - 100 mg PO UD PRN Pain 11/21/22 09/16/23 History vitamin B complex 1 tab PO HS 11/21/22 09/16/23 History acetaminophen 500 mg tablet 1,000 mg PO UD PRN Pain 12/15/22 09/16/23 History gabapentin 300 mg capsule 300 mg PO TID PRN Pain 12/15/22 09/16/23 History abatacept 125 mg/mL subcutaneous 0 mg subcut WK 08/26/23 09/16/23 History syringe (Orencia) coQ10 (ubiquinol) 100 mg capsule 100 mg PO QAM 08/26/23 09/16/23 History krill oil 500 mg capsule 500 mg PO HS 08/26/23 09/16/23 History baclofen 10 mg tablet 10 mg PO BID 09/16/23 09/16/23 History Patient History Medical History CAD (coronary artery disease) s/p ELSY x 2 to mid RCA 02/05/19; s/p ELSY x 1 to pCx 02/07/19 History of pulmonary embolism (1984) s/p c/s. No re-occurences. Osteoarthritis bilat mika, right worse. Insomnia Subclavian artery disease Patient denies Per records "PVD with subclavian stenosis" Per 2019 chest CTA= Mixed plaque of the proximal right subclavian artery results in 50% luminal narrowing. Chronic low blood pressure "my entire life, normal for me" 104/66 average. Osteoporosis Rheumatoid arthritis Follows with rheum Stable at this time Cervical stenosis of spine History of anesthesia reaction - Pt requesting manual BP checks only - had episode possibly back in 2014 after surgery- machine BP cuff caused BP to increase to emergently elevated levels in post op area- was given antihypertensives which then caused severe hypotension- patient was admitted x 4 days in attempts to get BP back up to baseline (usually has low normal BP per patient) - No significant issues in regards to BP/anesthesia reactions with 12/2022 surgery (did get manual BP checks pre and post operatively) 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 02/07/19 1 ELSY to proximal Circumflex Surgical History History of History of esophagogastroduodenoscopy (EGD) Hx of colonoscopy History of cardiac cath 2018, for SD, [facility], x3 stents; f/[facility] History of total shoulder replacement left History of hysterectomy w/appendectomy History of total left hip replacement History of right shoulder replacement S/P cervical spinal fusion x2 - most recent Dec 2022. History of total bilateral knee replacement Family History Mother Diabetes Heart disease Social History Smoking Status: Never smoker Second Hand Exposure: No; Do You Dip or Chew Tobacco: No; Hx Alcohol Use: No Hx Substance Use: No Preferred Language: Hong Konger Communication Ability: Effective Alterations Expert Required: No Beliefs That Will Affect Care: None marital status: Current Living Situation: Spouse Feels Safe at Home: Yes Assistive Devices: Cane and Walker Assistive Devices Comment: reading glasses Review of Systems Review of Systems: All systems reviewed & are unremarkable except as noted in HPI & below Physical Exam Physical Exam: constitutional: WD/WN, vitals as above, NAD, sitting up in bed, pleasant, conversing easily Head: Normocephalic, Atraumatic Neck: c collar in place, jose drain with serosang drainage, dressing CDI Eyes: PERRL, conjunctivae normal, anicteric sclerae ENMT: external ear and nose normal, oropharynx normal , edentulous Neck: trachea midline, no thyromegaly normal visual inspection Respiratory: normal respiratory effort, lungs clear to auscultation, no wheeze, rales, rhonchi. Normal insp/exp effort, no accessory muscle use Cardiovascular: RRR, no murmur, no edema Vessels: no JVD or carotid bruit Chest: normal inspection of chest Abdomen: normal bowel sounds, soft, nontender, no hepatosplenomegaly Musculoskeletal: no cyanosis or clubbing, AROM x 4, + RA deformities in upper extremities Skin: no rashes, warm and dry normal turgor Neurologic: PERRL, EOMI, accommodation nl, no face palsy, no dysarthria CN's II-XI intact bilaterally and moves all extremities Psychiatric: A+Ox3, euthymic affect Lymphatic: no cervical or axillary lymphadenopathy : anderson draining yellow urine Results & Data Vital Signs (Past 12 Hours) Vital Signs Temp Pulse Pulse Resp BP BP Pulse Ox 09/16/23 13:53 36.4 C L 100 H 14 134/82 96 09/16/23 13:25 36.5 C 97 H 16 138/84 95 09/16/23 13:10 36.4 C L 84 12 127/68 95 09/16/23 13:00 100 H 20 141/83 H 97 09/16/23 12:50 93 H 14 149/89 H 96 09/16/23 12:40 95 H 16 155/95 H 97 09/16/23 12:30 103 H 20 161/94 H 98 09/16/23 12:20 101 H 15 165/97 H 99 09/16/23 12:10 100 H 15 168/92 H 99 09/16/23 12:00 36.0 C L 74 12 96/54 L 97 09/16/23 08:54 36.6 C 82 20 132/78 95 O2 Del Method O2 Flow Rate 09/16/23 13:53 Nasal Cannula 2 09/16/23 13:25 Nasal Cannula 2 09/16/23 13:10 Nasal Cannula 2 09/16/23 13:00 Nasal Cannula 2 09/16/23 12:50 Nasal Cannula 2 09/16/23 12:40 Nasal Cannula 2 09/16/23 12:30 Nasal Cannula 2 09/16/23 12:20 Oxymask 7 09/16/23 12:10 Oxymask 7 09/16/23 12:00 Oxymask 7 09/16/23 08:54 Room Air Laboratory Results preoperative lab work was independently reviewed and interpreted by myself and revealed low potassium at 3.4, stable H&H of 12.9 and 37.7, BUN/creatinine of 14 and 0.57, negative urinalysis Diagnostic Findings Cervical Spine X-Ray 09/16/23 00:00 FL cervical 2-3V CLINICAL HISTORY: C3-C6 POSTERIOR DECOMP/FUSION COMPARISON STUDY: Fluoroscopic images 12/15/2022 FLUOROSCOPY TIME: 21.5 seconds FLUOROSCOPY IMAGES: 2 EXPOSURE DOSE: 3.74 mGy FINDINGS: Posterior interbody rods and screw fusion, suboptimally evaluated secondary to positioning. Anterior plate and screw fusion with discectomy again noted. Endotracheal tube with surgical drainage catheter. No unexpected opaque foreign bodies identified. IMPRESSION: Fluoroscopic assistance as above. ACT 112: Negative or not required by law. : Cardiomegaly with no acute disease Medications Administered Current Inpatient Medications Acetaminophen (Acetaminophen 500 Mg Tab) 1,000 mg PO PREOP EL Stop: 09/16/23 18:00 Last Admin: 09/16/23 09:15 Dose: 1,000 mg Acetaminophen (Acetaminophen 500 Mg Tab) 1,000 mg PO Q8H PRN PRN Reason: MILD Pain Scale 1,2,3 & Pre PT Stop: 10/16/23 13:37 Al Hydrox/Mg Hydrox/Simethicone (Aluminum/Magnesium Susp 30 Ml Udc) 30 ml PO Q6H PRN PRN Reason: Dyspepsia Stop: 10/16/23 13:37 Aspirin (Aspirin 81 Mg Ectab) 81 mg PO HS EL Stop: 10/16/23 20:59 Atorvastatin Calcium (Atorvastatin 40 Mg Tab) 80 mg PO QAM EL Stop: 10/17/23 08:59 Atropine Sulfate (Atropine Sulfate 0.1 Mg/Ml 10ml Syr) 0.5 mg IV Q1M PRN PRN Reason: PACU Use-HR<40 &/or Bradycardi Stop: 09/16/23 17:34 Baclofen (Baclofen 10 Mg Tab) 10 mg PO BID EL Stop: 10/16/23 20:59 Bisacodyl (Bisacodyl 10 Mg Supp) 10 mg NV DAILY PRN PRN Reason: Constipation Stop: 10/16/23 13:37 Calcium Carbonate (Calcium Carbonate 1250mg Tab) 1 tab PO DAILY EL Stop: 10/17/23 08:59 Celecoxib (Celebrex 200 Mg Cap) 200 mg PO PREOP EL Stop: 09/16/23 18:00 Last Admin: 09/16/23 09:15 Dose: 200 mg Diphenhydramine HCl (Diphenhydramine Capsule 25 Mg Cap) 25 mg PO Q6H PRN PRN Reason: Allergic Rhinitis/Insomnia Stop: 10/16/23 13:37 Ezetimibe (Ezetimibe 10 Mg Tab) 10 mg PO QAM EL Stop: 10/17/23 08:59 Ephedrine Sulfate (Ephedrine Sulfate 50 Mg/Ml Amp) 5 mg IV Q5M PRN PRN Reason: PACU Use Only-SBP<90 mmHg Stop: 09/16/23 17:34 Epinephrine (Racepinephrine 2.25% Nebu Soln 0.5 Ml Vial) 0.5 ml INH NOW PRN PRN Reason: If stridor present Famotidine (Famotidine 20 Mg Tab) 20 mg PO Q12H PRN PRN Reason: Dyspepsia Stop: 10/16/23 13:37 Gabapentin (Gabapentin 300 Mg Cap) 300 mg PO PREOP EL Stop: 09/16/23 18:00 Last Admin: 09/16/23 09:15 Dose: 300 mg Gabapentin (Gabapentin 300 Mg Cap) 300 mg PO TID PRN PRN Reason: Pain Stop: 10/16/23 13:37 Hydromorphone HCl (Hydromorphone Inj 2 Mg/Ml Syr/Vial) 0.5 mg IV Q5M PRN PRN Reason: PACU Use Only-Pain Stop: 09/16/23 17:34 Last Admin: 09/16/23 12:48 Dose: 0.5 mg Hydromorphone HCl (Hydromorphone Inj 0.5 Mg/0.5 Ml Syr) 0.5 mg IV Q3H PRN PRN Reason: MODERATE Pain (Scale 4,5,6) & Pre PT Stop: 09/30/23 13:37 Hydromorphone HCl (Hydromorphone Inj 1 Mg/Ml Syringe) 1 mg IV Q3H PRN PRN Reason: SEVERE Pain (Scale 7,8,9,10) Stop: 09/30/23 13:37 Last Admin: 09/16/23 13:49 Dose: 1 mg Hydroxyzine HCl (Hydroxyzine Hcl 25 Mg Tab) 25 mg PO Q8H PRN PRN Reason: Anxiety Stop: 10/16/23 13:37 Lactated Ringer's (Lr) 1,000 mls @ 15 mls/hr IV .Q24H EL Stop: 09/17/23 05:59 Last Infusion: 09/16/23 09:36 Dose: Infused Lactated Ringer's (Lr) 1,000 mls @ 60 mls/hr IV .[id number] EL Stop: 09/16/23 22:39 Last Admin: 09/16/23 09:15 Dose: Not Given Cefazolin Sodium (Ancef 2000mg) 2,000 mg in 15 mls @ 3.75 mls/min IV PREOP EL; Protocol Stop: 09/16/23 18:00 Last Admin: 09/16/23 09:37 Dose: 3.75 mls/min Acetaminophen (Ofirmev) 1,000 mg in 100 mls @ 400 mls/hr IV Q8H PRN PRN Reason: Pain Rating 1-3 & Pre PT Stop: 09/17/23 13:38 Dexamethasone 8 mg/ Syringe 2 mls @ 1 mls/min IV NOW PRN PRN Reason: If stridor present Lactated Ringer's (Lr) 1,000 mls @ 75 mls/hr IV .[id number] EL Stop: 10/16/23 13:37 Last Admin: 09/16/23 13:57 Dose: 75 mls/hr Promethazine HCl 12.5 mg/ (Sodium Chloride) 50.5 mls @ 202 mls/hr IV Q6H PRN PRN Reason: Nausea &/or Vomiting Stop: 10/16/23 13:37 Cefazolin Sodium (Ancef 1000mg) 1,000 mg in 7.5 mls @ 2.5 mls/min IV Q8H EL; Protocol Stop: 09/17/23 02:02 Lorazepam 0.5 mg/ Syringe 0.5 mls @ 2 mls/min IV Q8H PRN; Protocol PRN Reason: Sedation/Anxiety Stop: 10/16/23 13:37 Dexamethasone 6 mg/ Syringe 1.5 mls @ 1 mls/min IV Q8H EL Stop: 09/17/23 06:02 Influenza Virus Vaccine Quadrival (Do Not Administer Flu Vaccine) 1 each N/A P RN PRN PRN Reason: Notification Stop: 10/16/23 13:37 Isosorbide Mononitrate (Isosorbide [place] Extended Rel 30 Mg Tabcr) 30 mg PO QAM [facility] Stop: 10/17/23 08:59 Lorazepam (Lorazepam 0.5 Mg Tab) 0.5 mg PO Q8H PRN PRN Reason: Sedation/Anxiety Stop: 10/16/23 13:37 Losartan Potassium (Losartan Potassium 25 Mg Tab) 25 mg PO QAM [facility] Stop: 10/17/23 08:59 Magnesium Hydroxide (Magnesium Hydroxide Susp 30 Ml Udc) 30 ml PO Q24H PRN PRN Reason: Constipation Stop: 10/16/23 13:37 Metoclopramide HCl (Metoclopramide Hcl Inj 5 Mg/Ml 2 Ml Vial) 10 mg IV Q6H PRN PRN Reason: Nausea &/or Vomiting Stop: 10/16/23 13:37 Metoprolol Tartrate (Metoprolol Tartrate 25 Mg Tab) 25 mg PO BID [facility] Stop: 10/16/23 20:59 Naloxone HCl (Naloxone Hcl 0.4 Mg/1 Ml Vial/Carp) 0.1 mg IV Q5M PRN PRN Reason: Oversedation/Resp depression Stop: 10/16/23 13:37 Ondansetron HCl (Ondansetron Inj 2 Mg/Ml 2 Ml Vial) 4 mg IV ONCE PRN PRN Reason: PACU Use Only-Nausea/Vomiting Stop: 09/16/23 17:34 Ondansetron HCl (Ondansetron Inj 2 Mg/Ml 2 Ml Vial) 4 mg IV Q6H PRN PRN Reason: Nausea &/or Vomiting Stop: 10/16/23 13:37 Ondansetron HCl (Ondansetron 4 Mg Od Tab) 4 mg PO Q6H PRN PRN Reason: Nausea Stop: 10/16/23 13:37 Oxycodone HCl (Oxycodone Hcl Ir 5 Mg Tab (Immediate Release)) 5 - 10 mg PO Q4H PRN PRN Reason: Pain & Pre PT Stop: 09/30/23 13:37 Pneumococcal Polyvalent Vaccine (Do Not Administer Pneumococcal Vaccine) 1 each N/A PRN PRN PRN Reason: Notification Stop: 10/16/23 13:37 Polyethylene Glycol (Polyethylene (Miralax) 17 Gm Pack) 17 gm PO Q6 [facility] Stop: 10/17/23 05:59 Senna/Docusate Sodium (Docusate Sodium/Senna 50/8.6mg Tab) 2 tab PO HS EL Stop: 10/16/23 20:59 Sodium Biphosphate/Sodium Phosphate (Sod Phosphate/Sod Biphosphate Enema 132 Ml Btl) 132 ml NV ONE PRN PRN Reason: Constipation Stop: 10/16/23 13:37 Tramadol HCl (Tramadol Hcl 50 Mg Tablet) 50 - 100 mg PO Q4H PRN PRN Reason: Moderate-Severe pain & Pre PT Stop: 10/16/23 13:37 Vitamin B Complex (Vitamin B Complex Tab) 1 tab PO HS EL Stop: 10/16/23 20:59 Vitamin D (Cholecalciferol 25 Mcg (1000 Units) Tab) 50 mcg PO HS EL Stop: 10/16/23 20:59 ECG Additional Comments: I have independently reviewed and interpreted patient's admitting EKG which revealed: NSR 66bpm, no st or t wave change
[2023-09-16] MEDS: dexAMETHasone 6 MG in SYRINGE 0 ML IV SCH (15:07)
[2023-09-16] MEDS: GABAPENTIN 300 MG CAP PO STA (15:25)
[2023-09-16] MEDS: ceFAZolin 1000MG 1,000 MG/7.5 ML SYR IV SCH (17:18)
[2023-09-16] MEDS: ACETAMINOPHEN 1,000 MG/100 ML VIAL IV PRN (17:18)
--- OUTSIDE RECORDS SUMMARY | 2023-09-16 20:25 | External Medical Summary | Summary of Care ---
Author Name Unknown Organization [facility] Address [address] [place] [address] Phone [phone] Care Team Providers Care Relays Draftsperson Name Role Phone Doron Veloz DO Primary Care Provider [phone] Reason for Visit * Reason Comments Physical-Exam Pre Op Encounter Details Date Type Department Care Team ([facility] st Contact Info) Description 09/01/2023 11:20 AM EDT Office Visit Family Practice [address] [facility] [address] [place] [address] Doron Veloz DO [address] [place] [address] Preoperative general physical examination*; Cervical disc disease; Rheumatoid arthritis of multiple sites without rheumatoid factor (HCC); 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 of minto heart without angina pectoris; S/P right coronary artery (RCA) stent placement; Presence of stent in left circumflex coronary artery; Dyslipidemia, goal LDL below 70; TRIPP-inhibitor cough; Iron deficiency anemia, unspecified iron deficiency anemia type; Peripheral vascular disease (HCC); Stenosis of subclavian artery (HCC); Senile osteoporosis; Intermittent asthma with reliever use up to twice per week without complication; Need for pneumococcal vaccination Allergies Active Allergy Reactions Criticality Noted Date Comments Chlorhexidine 12/24/2022 Propoxyphene N-Acetaminophen Nausea/vomiting Low 12/01/2009 "migraine" headache Adhesive Tape Hives,Itching,Rash 02/17/2011 Pulls off skin Does not tolerate any adhesive tape documented as of this encounter (statuses as of 09/03/2023) Medications Medication Sig Dispensed Refills Start Date End Date Status Denosumab 60 MG/ML Subcutaneous Solution Inject 60 mg under the skin. Every 6 months Active Aspirin 81 MG Tablet Take 1 Tablet by mouth every afternoon. 02/08/2019 Active Coenzyme Q10 (CO Q 10) 100 MG CAPS Take 1 Capsule by mouth in the morning. Active Cholecalciferol (VITAMIN D) 50 MCG (2000 UT) Tablet Take 2,000 Units by mouth every evening. Active B Complex Capsule Take 1 Capsule by mouth every evening. Active Krill Oil 500 MG Oral Capsule Take 1 Capsule by mouth every evening. Active Losartan Potassium 25 MG Oral Tablet (Cozaar)Indication s: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 of minto heart without angina pectoris,Dyslipide edy, goal LDL below 70,TRIPP-inhibitor cough TAKE ONE TABLET BY MOUTH EVERY DAY 100 Tablet 3 07/17/2022 09/25/2023 Active traMADol HCl 50 MG Oral Tablet (Ultram) take 1 tablet by mouthevery 6 hours As Needed for moderate pain. 30 Tablet 12/15/2022 Active Gabapentin 300 MG Oral Capsule (Neurontin)Indicat ions:Cervical disc disease,DDD (degenerative disc disease), lumbar Take 1 Capsule by mouth in the morning, 1 Capsule at noon and 1 Capsule before bedtime. 300 Capsule 3 12/24/2022 Active Additional Information Patient taking differently:300 mg OralBID (.AM/PM), Reported on 07/23/2023 Ezetimibe 10 MG Oral Tablet (Zetia)Indications :Dyslipidemia, goal LDL below 70 TAKE ONE TABLET BY MOUTH EVERY DAY 100 Tablet 3 02/07/2023 02/07/2024 Active Calcium Carbonate 600 MG Oral Tablet (Calcium 600) Take 1 Tablet by mouth 2 times a day with morning and evening meals. Active Orencia ClickJect 125 MG/ML Subcutaneous Solution Auto-injector (Abatacept)Indicat ions:Rheumatoid arthritis of multiple sites without rheumatoid factor (HCC) Inject 125 mg (1 pen) under the skin once a week. 4 mL 2 06/08/2023 Active Atorvastatin Calcium 80 MG Oral Tablet (Lipitor)Indicatio ns: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 of minto heart without angina pectoris,Dyslipide edy, goal LDL below 70,TRIPP-inhibitor cough TAKE ONE TABLET BY MOUTH EVERY DAY 100 Tablet 1 07/14/2023 07/13/2024 Active predniSONE 5 MG Oral Tablet (Deltasone) Take 1 tablet by mouth daily for RA as needed 90 Tablet 1 07/13/2023 Active Additional Information Patient taking differently: 10 mg Daily(AM), Take 1 tablet by mouth daily for RA as needed, Reported on 09/01/2023 Baclofen 10 MG Oral Tablet (Lioresal)Indicati ons:Acute midline thoracic back pain,Thoracic degenerative disc disease Take 1 Tablet by mouth in the morning and 1 Tablet before bedtime. 200 Tablet 3 07/23/2023 Active Additional Information Patient taking differently:10 mg [id number], Take in PM, Reported on 09/01/2023 Ondansetron HCl 8 MG Oral TabletIndications: Nausea Take 1 Tablet by mouth every 8 hours as needed for Nausea. 45 Tablet 3 07/23/2023 Active Metoprolol Tartrate 25 MG Oral Tablet (Lopressor)Indicat ions: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 of minto heart without angina pectoris,Dyslipide edy, goal LDL below 70,TRIPP-inhibitor cough TAKE ONE TABLET BY MOUTH TWO TIMES A DAY 200 Tablet 3 08/07/2023 08/06/2024 Active Isosorbide Mononitrate ER 30 MG Oral Tablet Extended Release 24 Hour (Imdur) TAKE ONE TABLET BY MOUTH EVERY MORNING 100 Tablet 3 08/14/2023 08/13/2024 Active Hospital, Clinic, or Other Facility Administered Medication Ordered Dose Route Frequency Start Date End Date Status Denosumab (Prolia) subcut inj 60 mgIndications:Senile osteoporosis 60 mg SC [id number] 05/04/2023 04/28/2024 Active documented as of this encounter (statuses as of 09/03/2023) Active Problems Problem Noted Date Diagnosed Date Intermittent asthma with rel iever use up to twice per week without complication 03/16/2023 Essential (primary) hypertension 12/24/2022 Senile osteoporosis 10/29/2022 Peripheral vascular disease 10/17/2019 Stenosis of subclavian artery 10/17/2019 Dyslipidemia, goal LDL below 70 05/25/2019 TRIPP-inhibitor cough 05/25/2019 Coronary artery disease invo lving minto coronary artery of minto heart without angina pectoris 02/11/2019 Presence of stent in left circumflex coronary ar dru 02/11/2019 History of heart attack 02/08/2019 Overview: Stent placed 02/05 per patient S/P right coronary artery (RCA) stent placement 02/07/2019 Localized osteoarthritis of left shoulder 2018 Hx of total hysterectomy wit h removal of both tubes and ovaries 12/28/2018 Overview: 2012- Cervix intact Arthritis of ankle, left 11/05/2017 DDD (degenerative disc disease), lumbar 06/19/19 18 Rheumatoid arthritis of mult iple sites without rheumatoid factor 02/04/2016 S/P cervical spinal fusion 04/21/2014 Cervical disc disease 03/14/2014 Encounter for long-term (current) use of medicat ions 10/11/2010 Overview: ICD-10 update of inactive term Iron deficiency anemia 09/07/2007 S/P BILATERAL KNEE REPLACEMENT 12/14/2001 documented as of this encounter (statuses as of 09/03/2023) Resolved Problems Problem Noted Date Diagnosed Date Resolved Date Petechial rash 06/18/2017 10/06/2017 LOC PRIM OSTEOART-SHLDER BILATERAL 10/29/2010 01/24/2019 Dyslipidemia, goal LDL below 130 04/13/2009 02/24/2017 ADVANCE DIRECTIVE INFORMATION 04/02/2005 08/25/2016 Overview: No, Advance Directive brochure given to patient at prior appointment. . Arthritis, rheumatoid 2015 Osteoporosis 11/28/2022 Anemia 05/10/2010 Pulmonary embolus 02/24/2017 documented as of this encounter (statuses as of 09/03/2023) Immunizations Name Administration Dates Next Due COVID-19 mRNA, LNP-s, No Pre serve, 2-Dose Series (Pfizer) 05/15/2020,04/17/2020 PPD 03/31/2017 Pneumococcal Conjugate Vacc, 13 Valent (Prevnar) 02/18/2019 Pneumococcal Conjugate Vacci ne, 20-valent ([id number]) 09/01/2023 Seasonal Influenza, PF, 6 M & above, IM , (FluLaval or Fluzone) 02/26/2021,01/04/2020,02/11/2019 TD - Tetanus/Diptheria (ADULT) 07/22/2018 TD, Preservative Free 07/22/2018 TDAP, Age 7 and older, IM (Adacel) 09/23/2007 Zoster Vaccine Recombinant (Shingrix) 10/17/2019 ,03/30/2019 documented as of this encounter Social History Tobacco Use Types Packs/Day Years Used Date Smoking Tobacco: Never Passive Smoke Exposure: Past Smokeless Tobacco: Never Tobacco Cessation:Counseling Given: Yes Alcohol Use Standard Drinks/Week Comments No 0 (1 standard drink = 0.6 oz pur e alcohol) PHQ-2 Answer Date Recorded PHQ Adult Total Score 0 04/13/2023 Hunger Vital Sign Answer Date Recorded Within the past 12 months, y ou worried that your food would run out before you got the money to buy more. Never true 04/13/19 24 Within the past 12 months, t he food you bought just didn't last and you didn't have money to get more. Never true 04/13/2023 Childcare Answer Date Recorded Do you feel overwhelmed with taking care of a child, family member or friend? No 04/13/2023 Does your family need help f inding childcare? (Household - for ages 0-17 years) Not on file 04/13/2023 Clothing Answer Date Recorded Have you been unable to get clothing when it was really needed? No 04/13/2023 Is your family able to get c lothes or diapers when needed? (Household - for ages 0-17 years) Not on file 04/13/2023 Personal Safety Answer Date Recorded Do you feel unsafe or have concerns for your saf ety? No 04/13/2023 Do you have concerns for you r family's safety? (Household - for ages 0-17 years) Not on file 04/13/2023 Utilities Answer Date Recorded Do you have trouble paying y our heating, water, or electric bill? No 04/13/2023 Is your family able to pay t he heat, water, or electric bill? (Household - for ages 0-17 years) Not on file 04/13/2023 Does your family have access to good internet? (Household - for ages 0-17 years) Not on file 04/13/2023 Employment Status Answer Date Recorded Are you unemployed or without regular income? No 04/13/2023 Does the household have a re gular source of income? (Household - for ages 0-17 years) Not on file 04/13/2023 Social Connections Answer Date Recorded How often do you feel lonely or isolated from th ose around you? Never 04/13/2023 Financial Resource Strain Answer Date R ecorded Do you have any trouble payi ng for your medications, or do you think you might in the future? No 04/13/2023 Does your family have troubl e paying for medicine? (Household - for ages 0-17 years) Not on file 04/13/2023 Transportation Needs Answer Date Record ed READ ONLY Do you have troubl e getting a ride to medical visits or work? Never True 04/13/2023 Does your family have a hard time getting a ride to doctors visits? (Household - for ages 0-17 years) Not on file 04/13/2023 Has lack of transportation k ept you from medical appointments, meetings, work, or from getting things needed for daily living? Check all that apply. (Adult - for ages 18 years and over) Not on file 04/13/2023 Do you (or your family) have trouble finding or paying for a ride (transportation)? (Household - for ages 0-17 years) Not on file 04/13/2023 Housing Stability Answer Date Recorded Do you currently live in a s helter or have no steady place to sleep at night? No 04/13/2023 READ ONLY Do you think you a re at risk of becoming homeless? No 04/13/2023 Does your family worry about paying for your home or becoming homeless? (Household - for ages 0-17 years) Not on file 0 04/13/2023 Are you homeless or worried that you might be in the future? (Adult - for ages 18 years and over) Not on file Are you (or your family) bernardino eless or worried that you might be in the future? (Household - for ages 0-17 years) Not on file Food Insecurity Answer Date Recorded Do you need food for this week? No 04/13/2023 Are you able to get enough f ood for your family? (Household - for ages 0-17 years) Not on file 04/13/2023 Does your family need food t his week? (Household - for ages 0-17 years) Not on file 04/13/2023 Do you always have enough fo od for your family? (Household - for ages 0-17 years) Not on file 04/13/2023 Sex and Gender Information Value Date Recorded Sex Assigned at Female 02/18/2019 11:21 AM EST Gender Identity Female 02/18/2019 11:21 AM EST Sexual Orientation Choose not to disclose 2018 11:21 AM EST Job Start Date Occupation Industry Not on file Not on file Not on file documented as of this encounter Last Filed Vital Signs Vital Sign Reading Time Taken Comments Blood Pressure 98/70 09/01/2023 11:20 AM EDT Pulse 64 09/01/2023 11:20 AM EDT Temperature 37 C (98.6 F) 09/01/2023 11:20 AM EDT Respiratory Rate 14 09/01/2023 11:20 AM EDT Oxygen Saturation 93% 09/01/2023 11:20 AM EDT Inhaled Oxygen Concentration - - Weight 54.9 kg (121 lb) 09/01/2023 11:20 AM EDT Height 146.7 cm (4' 9.75") 09/01/2023 11:20 AM E DT Body Mass Index 25.51 09/01/2023 11:20 AM EDT documented in this encounter Patient Instructions * Patient Instructions* Teresa Hoyos LPN - 09/01/2023 11:27 AM EDT ~~PATIENT INSTRUCTIONS FOR PNEUMOCOCCAL VACCINE~~ Possible side effects of pneumococcal vaccine, (pneumonia shot), are usually mild and can include: 1. Soreness or redness at injection site 2. Low grade fever 3. Body aches You may use Tylenol/Acetaminophen as needed for these symptoms. LET YOUR DOCTOR KNOW IMMEDIATELY IF YOU HAVE DIFFICULTY BREATHING OR SWALLOWING, EXPERIENCE ITCHINGOF FEET OR HANDS, HAVE SWELLING OF EYES, FACE OR INSIDE OF NOSE. documented in this encounter Progress Notes * Doron Veloz DO - 09/03/2023 2:19 PM EDT SUBJECTIVE: Laisha Galvez is a 68 year old female. Chief Complaint Patient presents with Physical-Exam Pre Op HPI: Patient is a 68 year old female with a history of Rheumatoid Arthritis, Iron Deficiency Anemia, Hyperlipidemia, CAD, RCA stent on 02/05/2019, Circumflex Artery stent on 02/07/2019, cervical spinal fusion, revision of cervical spinal fusion, on 12/16/2022, left shoulder replacement, bilateral knee replacement, and bilateral ankle instability that is seen for preoperative medical evaluation prior toC3-C6 decompression and fusion. 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 Bilateral upper extremity weakness is present as well. No chest pain or shortness of breath are present. Weight is stable and appetite is good. Patient Active Problem List Diagnosis S/P BILATERAL KNEE REPLACEMENT Iron deficiency anemia Encounter for long-term (current) use of medications Cervical disc disease S/P cervical spinal fusion Rheumatoid arthritis of multiple sites without rheumatoid factor (HCC) DDD (degenerative disc disease), lumbar Arthritis of ankle, left Hx of total hysterectomy with removal of both tubes and ovaries Localized osteoarthritis of left shoulder S/P right coronary artery (RCA) stent placement History of heart attack 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 of minto heart without angina pectoris Presence of stent in left circumflex coronary artery Dyslipidemia, goal LDL below 70 TRIPP-inhibitor cough Peripheral vascular disease (HCC) Stenosis of subclavian artery (HCC) Senile osteoporosis Essential (primary) hypertension Intermittent asthma with reliever use up to twice per week without complication Current Outpatient Medications Medication Sig Dispense Refill Denosumab 60 MG/ML Subcutaneous Solution Inject 60 mg under the skin. Every 6 months Aspirin 81 MG Tablet Take 1 Tablet by mouth every afternoon. Coenzyme Q10 (CO Q 10) 100 MG CAPS Take 1 Capsule by mouth in the morning. Cholecalciferol (VITAMIN D) 50 MCG (2000 UT) Tablet Take 2,000 Units by mouth every evening. B Complex Capsule Take 1 Capsule by mouth every evening. Krill Oil 500 MG Oral Capsule Take 1 Capsule by mouth every evening. Losartan Potassium 25 MG Oral Tablet (Cozaar) TAKE ONE TABLET BY MOUTH EVERY DAY 100 Tablet 3 traMADol HCl 50 MG Oral Tablet (Ultram) take 1 tablet by mouthevery 6 hours As Needed for moderate pain. 30 Tablet 0 Gabapentin 300 MG Oral Capsule (Neurontin) Take 1 Capsule by mouth in the morning, 1 Capsule at noon and 1 Capsule before bedtime. (Patient taking differently: Take 1 Capsule by mouth in the morning and 1 Capsule before bedtime.) 300 Capsule 3 Ezetimibe 10 MG Oral Tablet (Zetia) TAKE ONE TABLET BY MOUTH EVERY DAY 100 Tablet 3 Calcium Carbonate 600 MG Oral Tablet (Calcium 600) Take 1 Tablet by mouth 2 times a day with morning and evening meals. Orencia ClickJect 125 MG/ML Subcutaneous Solution Auto-injector (Abatacept) Inject 125 mg (1 pen) under the skin once a week. 4 mL 2 Atorvastatin Calcium 80 MG Oral Tablet (Lipitor) TAKE ONE TABLET BY MOUTH EVERY DAY 100 Tablet 1 predniSONE 5 MG Oral Tablet (Deltasone) Take 1 tablet by mouth daily for RA as needed (Patient taking differently: 2 Tablets in the morning. Take 1 tablet by mouth daily for RA as needed.) 90 Tablet 1 Baclofen 10 MG Oral Tablet (Lioresal) Take 1 Tablet by mouth in the morning and 1 Tablet before bedtime. (Patient taking differently: Take 1 Tablet by mouth every morning. Take in PM) 200 Tablet 3 Ondansetron HCl 8 MG Oral Tablet Take 1 Tablet by mouth every 8 hours as needed for Nausea. 45 Tablet 3 Metoprolol Tartrate 25 MG Oral Tablet (Lopressor) TAKE ONE TABLET BY MOUTH TWO TIMES A DAY 200 Tablet 3 Isosorbide Mononitrate ER 30 MG Oral Tablet Extended Release 24 Hour (Imdur) TAKE ONE TABLET BY MOUTH EVERY MORNING 100 Tablet 3 Current Facility-Administered Medications Medication Dose Route Frequency Provider Last Rate Last Admin Denosumab (Prolia) subcut inj 60 mg 60 mg Subcutaneous Q6 Months Lise Rogers CRNP 60 mg at 05/05/23 1409 The patient's medication list was reviewed and updated as needed. Past Medical History: Diagnosis Date Arthritis, rheumatoid (HCC) 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 of minto heart without angina pectoris 02/11/2019 Iron deficiency anemia 09/07/2007 LOC PRIM OSTEOART-SHLDER BILATERAL 10/29/2010 Localized osteoarthritis of left shoulder 01/24/2019 Opioid usage, appropriate, by Rheumatology 10/11/2010 Osteoporosis Presence of stent in left circumflex coronary artery 02/11/2019 Pulmonary embolus (HCC) S/P BILATERAL KNEE REPLACEMENT 12/14/2001 S/P right coronary artery (RCA) stent placement 02/07/2019 Past Surgical History: Procedure Laterality Date ARTHROPLASTY KNEE TOTAL bilateral ARTHROPLASTY KNEE TOTAL Left 2013 [facility] DELIVERY 1985 COLONOSCOPY, DIAGNOSTIC (RECTUM) 07/29/2007 COLONOSCOPY, DIAGNOSTIC (RECTUM) 10/06/2017 COLONOSCOPY FLEXIBLE PROXIMAL DIAGNOSTIC performed by Phillip Murphy MD at ENDOSCOPY [facility] NECK SPINE FUSION (ATLAS-AXIS) 03/2014 Dr. Valero NECK SPINE FUSION (CERV, BELOW C2) N/A 12/16/2022 C3-C-4 RECONSTRUCT/REPLACE SHOULDER JOINT 11/[address] Yin RECONSTRUCT/REPLACE SHOULDER JOINT Right 2011 [facility] RECONSTRUCT/REPLACE SHOULDER JOINT Left 2020 REMOVE TONSILS & ADENOIDS, UNDER 12 1963 SMALL BOWEL ENDOSCOPY W/BX 07/29/[address]; mild gastric irritation TOTAL ABD HYSTERECTOMY W/WO REMOVAL OF TUBE(S) TOTAL HIP REPLACEMENT & PROSTHESIS Left 05/2013 [facility] TOTAL HYSTERECTOMY 06/09/2011 Family History Problem Relation Name Age of Onset Cancer Other maternal aunt Diabetes Mother borderline Heart Disorder Mother angina of heart attack Heart Disorder Grandmother (Maternal) angina Lung Disorder Father COPD Social History Tobacco Use Smoking status: Never Passive exposure: Past Smokeless tobacco: Never Vaping Use Vaping status: Never Used Substance Use Topics Alcohol use: No Drug use: No Review of patient's allergies indicates: Allergen Reactions Chlorhexidine Tape [Adhesive Tape] Hives, Itching and Rash Pulls off skin Does not tolerate any adhesive tape Darvocet [Propoxyphene N-Acetaminophen] Nausea/vomiting "migraine" headache Review of Systems Constitutional: Negative for appetite change, fatigue and unexpected weight change. HENT: Negative for congestion, sore throat and trouble swallowing. Respiratory: Negative for cough, shortness of breath and wheezing. Cardiovascular: Negative for chest pain, palpitations and leg swelling. Gastrointestinal: Negative for abdominal pain, blood in stool, constipation, diarrhea, nausea and vomiting. Genitourinary: Negative for dysuria, frequency and hematuria. Musculoskeletal: Positive for arthralgias, back pain and neck pain. Neurological: Negative for dizziness, syncope and headaches. Psychiatric/Behavioral: Negative for confusion, decreased concentration and sleep disturbance. The patient is not nervous/anxious. OBJECTIVE: BP 98/70 (BP Site: Left Arm, BP Position: Sitting) | Pulse 64 | Temp 37 C (98.6 F) | Resp 14 | Ht 1.467 m (4' 9.75") | Wt 54.9 kg (121 lb) | LMP 01/07/2011 | SpO2 93% | BMI 25.51 kg/m | BSA 1.5m Physical Exam Vitals and nursing note reviewed. Constitutional: General: She is not in acute distress. Appearance: Normal appearance. She is not toxic-appearing. HENT: Head: Normocephalic and atraumatic. Cardiovascular: Rate and Rhythm: Normal rate and regular rhythm. Heart sounds: Normal heart sounds. No murmur heard. No gallop. Pulmonary: Effort: Pulmonary effort is normal. Breath sounds: Normal breath sounds. No wheezing, rhonchi or rales. Abdominal: General: Bowel sounds are normal. There is no distension. Palpations: Abdomen is soft. Tenderness: There is no abdominal tenderness. Musculoskeletal: Right lower leg: No edema. Left lower leg: No edema. Neurological: Mental Status: She is alert and oriented to person, place, and time. Mental status is at baseline. Motor: No weakness. Gait: Gait normal. Psychiatric: Mood and Affect: Mood normal. Behavior: Behavior normal. Thought Content: Thought content normal. ECG 08/27/2023: NSR. Normal ECG CXR done at [facility] 08/28/2023: Report reviewed Cardiomegaly with no active disease in the chest Labs done at [facility] 08/28/2023 CBC with diff, PT, PTT, and BMP within acceptable range. UA is normal. PLAN AND ASSESSMENT: Preoperative general physical examination (Primary) Patient is low risk for procedure No additional preoperative testing is necessary Cervical disc disease Continue prednisone Rheumatoid arthritis of multiple sites without rheumatoid factor (HCC) Hold Orencia in perioperative period per Rheumatology 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 of minto heart without angina pectoris Continue Imdur. Losartan, and Metoprolol ER S/P right coronary artery (RCA) stent placement Presence of stent in left circumflex coronary artery Dyslipidemia, goal LDL below 70 Continue Atorvastatin and Ezetimibe TRIPP-inhibitor cough Iron deficiency anemia, unspecified iron deficiency anemia type Peripheral vascular disease (HCC) Stenosis of subclavian artery (HCC) Senile osteoporosis Continue Prolia per Rheumatology Intermittent asthma with reliever use up to twice per week without complication Need for pneumococcal vaccination - PNEUMOCOCCAL VACC, PCV20, IM ([id number]) Follow Up: Return if symptoms worsen or fail to improve. Doron Veloz DO 2:19 PM 09/03/2023 * Teresa Hoyos LPN - 09/01/2023 11:26 AM EDT Immunization Administration Documentation Time Out Procedure Performed: Yes Patient Identified (Ask Name/Date of ): Yes Does the patient have a fever greater than 101 degrees today? No Patient allergic to latex? No VFC Stock: No Immunization(s) verified: Yes, Immunization Name: Prevnar 20 (PCV20), VIS Sheet(s) given: Yes Verified Side and Site: Yes Verified Shot(s) with Parent(s)/Patient: Yes documented in this encounter Nursing Notes * Fransisca Patiño CCMA - 09/01/2023 11:19 AM EDT Pt here for follow up and preop appt. Pt is having surgery on her neck at [facility] in September 15. Pt does not have any other questions or concerns for today. Patient has been verbally educated on the need or importance of Immunizations: Covid and has declined topic(s). documented in this encounter Plan of Treatment Upcoming Encounters Date Type Department Care Team (Late st Contact Info) Description 10/27/2023 1:40 PM EDT Office Visit Family Practice [address] [place] [address] [address] [place] [address] [facility] Veloz, [address] [facility] [address] 11/06/2023 11:20 AM EDT Office Visit Rheumatology [facility] [address] [place] [address] Ramón Malave MD [address] [place] [address] 11/13/2023 11:00 AM EDT Office Visit Cardiology, [facility] [address] [address] [address] Em, LISA [address] [address] 04/19/2024 2:00 PM EST Nurse Only Ancillary [address] [place] [address] [place] [address] College, Nurse Annual Wellness Visit [address] [facility] [address] [facility], [place] [address] Health Maintenance Due Date Last Done Comments Sigmoidoscopy 2002 Fecal Occult Blood Test 05/23/2011 05/22/2010, 08/23 COVID-19 Vaccine (3 - Pfizer risk series) 06/12/2020 05/15/2020, 04/17/2020 *SPIROMETRY ONCE FOR ASTHMA-ADULT 03/18/2023 Mammogram 09/23/2023 09/22/2022, 09/06, 07/24/2021, Additional history exists DXA Scan 10/17/2023 10/16/2021, 10/07, 10/05/2019, Additional history exists Influenza Vaccine (FLU shot) (Season Ended) 2023 02/26/2021, 01/04/2020, 02/11/2019 Depression Screening 04/13/2024 04/13/2023 GFR 08/27/2024 08/28/2023, 07/09, 07/17/2023, Additional history exists Albumin/Creatinine Ratio 03/16/2026 03/16/2023 Cologuard 08/10/2026 08/11/2023, 07/08, 08/05/2023, Additional history exists Diabetes Screening 08/27/2026 08/28/2023, 0 07/17/2023, 05/01/2023, Additional history exists Colonoscopy 10/07/2027 10/06/2017, 07/29/2007 Colorectal Cancer Screening 10/07/2027 DTaP,Tdap,and Td Vaccines (4 - Td or Tdap) 07/22/2028 07/22/2018, 07/22/2018, 09/23/2007, Additional history exists Zoster Vaccines Completed 10/17/2019, 03/30/2019 VITAMIN D LEVEL ONCE IN A LIFETIME-USE SMARTSET# [id number] Completed 05/01/2023, 04/22/2022, 04/10/2021, Additional history exists Pneumococcal Vaccine: 65+ Years Completed 09/01/2023, 02/18/2019, 07/29/2000 GARDASIL-HPV IMMUNIZATION SERIES Aged Out No longer eligible based on patient's age to complete this topic Hepatitis B Aged Out No longer eligi ble based on patient's age to complete this topic MENINGOCOCCAL (MENACTRA/MENVEO) Aged Out No longer eligible based on patient's age to complete this topic documented as of this encounter Medical Devices Not on filedocumented as of this encounter Visit Diagnoses Diagnosis Preoperative general physical examination- Primary Other specified pre-operative examination Cervical disc disease Other and unspecified disc disorder of cervical region Rheumatoid arthritis of multiple sites without rheumatoid factor (HCC) Rheumatoid arthritis 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 of minto heart without angina pectoris S/P right coronary artery (RCA) stent placement Presence of stent in left circumflex coronary artery Postsurgical percutaneous transluminal coronary angioplasty status Dyslipidemia, goal LDL below 70 Other and unspecified hyperlipidemia TRIPP-inhibitor cough Cough Iron deficiency anemia, unspecified iron deficiency anemia type Peripheral vascular disease (HCC) Peripheral vascular disease, unspecified Stenosis of subclavian artery (HCC) Stricture of artery Senile osteoporosis Intermittent asthma with reliever use up to twice per week without complication Need for pneumococcal vaccination Need for prophylactic vaccination against streptococcus pneumoniae (pneumococcus) documented in this encounter Care Teams Relays Draftsperson Relationship Specialty Start Date End Date Doron Veloz DO [address] [place] [address] PCP - General Internal Medicine 08/28/23 documented as of this encounter
--- OUTSIDE RECORDS SUMMARY | 2023-09-16 20:26 | External Medical Summary | Summary of Care ---
Author Name Unknown Organization [facility] Address [address] [place] [address] Phone [phone] Care Team Providers Care Line Construction Superintendent Name Role Phone Doron Veloz DO Primary Care Provider [phone] Encounter Details Date Type Department Care Team (Late st Contact Info) Description 08/31/2023 Orders Only Family Practice 65 [facility] [address] [place] [address] Doron Veloz DO [address] [place] [address] Allergies Active Allergy Reactions Criticality Noted Date Comments Chlorhexidine 12/24/2022 Propoxyphene N-Acetaminophen Nausea/vomiting Low 12/01/2009 "migraine" headache Adhesive Tape Hives,Itching,Rash 02/17/2011 Pulls off skin Does not tolerate any adhesive tape documented as of this encounter (statuses as of 08/31/2023) Medications Medication Sig Dispensed Refills Start Date End Date Status Denosumab 60 MG/ML Subcutaneous Solution Inject 60 mg under the skin. Every 6 months Active Aspirin 81 MG Tablet Take 1 Tablet by mouth every afternoon. 02/08/2019 Active Coenzyme Q10 (CO Q 10) 100 MG CAPS Take 1 Capsule by mouth in the morning. Active Cholecalciferol (VITAMIN D) 50 MCG (1999 UT) Tablet Take 2,000 Units by mouth every evening. Active B Complex Capsule Take 1 Capsule by mouth every evening. Active Krill Oil 500 MG Oral Capsule Take 1 Capsule by mouth every evening. Active Losartan Potassium 25 MG Oral Tablet (Cozaar)Indication s:Coronary artery disease involving qawalangin coronary artery of qawalangin heart without angina pectoris,Dyslipide edy, goal LDL [...] Oral Tablet (Lipitor)Indicatio ns:Coronary artery disease involving qawalangin coronary artery of qawalangin heart without angina pectoris,Dyslipide edy, goal LDL below 70,TRIPP-inhibitor cough TAKE ONE TABLET BY MOUTH EVERY DAY 100 Tablet 1 07/14/2023 07/13/2024 Active predniSONE 5 MG Oral Tablet (Deltasone) Take 1 tablet by mouth daily for RA as needed 90 Tablet 1 07/13/2023 Active Baclofen 10 MG Oral Tablet (Lioresal)Indicati ons:Acute midline thoracic back pain,Thoracic degenerative disc disease Take 1 Tablet by mouth in the morning and 1 Tablet before bedtime. 200 Tablet 3 07/23/2023 Active Ondansetron HCl 8 MG Oral TabletIndications: Nausea Take 1 Tablet by mouth every 8 hours as needed for Nausea. 45 Tablet 3 07/23/2023 Active Metoprolol Tartrate 25 MG Oral Tablet (Lopressor)Indicat ions:Coronary artery disease involving qawalangin coronary artery of qawalangin heart without angina pectoris,Dyslipide edy, goal LDL [...] inj 60 mgIndications:Senile osteoporosis 60 mg SC [id number] 05/04/2023 04/28/2024 Active documented as of this encounter (statuses as of 08/31/2023) Active Problems Problem Noted Date Diagnosed Date Intermittent asthma with rel iever use up to twice per week without complication 03/16/2023 Essential (primary) hypertension 12/24/2022 Senile osteoporosis 10/29/2022 Peripheral vascular disease 10/17/2019 Stenosis of subclavian artery 10/17/2019 Dyslipidemia, goal LDL below 70 05/25/2019 TRIPP-inhibitor cough 05/25/2019 Coronary artery disease invo lving qawalangin coronary artery of qawalangin heart without angina pectoris 02/11/2019 Presence of [...] as of this encounter (statuses as of 08/31/2023) Resolved Problems Problem Noted Date Diagnosed Date Resolved Date Petechial rash 06/18/2017 10/06/2017 LOC PRIM OSTEOART-SHLDER BILATERAL 10/29/2010 01/24/2019 Dyslipidemia, goal LDL below 130 04/13/2009 02/24/2017 ADVANCE DIRECTIVE INFORMATION 04/02/2005 08/25/2016 Overview: No, Advance Directive brochure given to patient at prior appointment. . Arthritis, rheumatoid 2015 Osteoporosis 11/28/2022 Anemia 05/10/2010 Pulmonary embolus 02/24/2017 documented as of this encounter (statuses as of 08/31/2023) Immunizations Name Administration Dates Next Due COVID-19 mRNA, LNP-s, No Pre serve, 2-Dose Series (Pfizer) 05/15/2020,04/17/2020 PPD 03/31/2017 Pneumococcal Conjugate Vacc, 13 Valent (Prevnar) 02/18/2019 Seasonal Influenza, PF, 6 M & above, IM , (FluLaval or Fluzone) 02/26/2021,01/04/2020,02/11/2019 TD - Tetanus/Diptheria (ADULT) 07/22/2018 TD, Preservative Free 07/22/2018 TDAP, Age 7 and older, IM (Adacel) 09/23/2007 Zoster Vaccine Recombinant (Shingrix) 10/17/2019 ,03/30/2019 documented as of this encounter Social History Tobacco Use Types Packs/Day Years Used Date Smoking Tobacco: Never Passive Smoke Exposure: Past Smokeless Tobacco: Never Alcohol Use Standard Drinks/Week Comments No 0 [...] No 04/13/2023 Does the household have a [facility] source [facility] income? (Household - for ages [...] on file documented as of this encounter Plan of Treatment Upcoming Encounters Date Type Department Care Team (Late st Contact Info) Description 09/01/2023 11:20 AM EDT Office Visit Family Practice [address] [place] [address] 293 [place] [address] Doron Veloz, DO 293 [facility], [place] [address] 10/27/2023 1:40 PM EDT Office Visit Family Practice 65 [facility] [address] [place] [address] Doron Vleoz, [address] [place] [address] 11/06/2023 11:20 AM EDT Office Visit Rheumatology [place] [id number] [facility] [place] [address] Ramón Malave MD [facility] Located [facility] [place], [place] [address] 11/13/2023 11:00 AM EDT Office Visit Cardiology, [facility] [address] [facility] [place] [address] Alley Em PA-C [facility] [place] [phone] 04/19/2024 2:00 PM EST Nurse Only Ancillary 65 [facility] 293 [place] [address] College, Nurse Annual Wellness Visit [address] [address] Health Maintenance Due Date Last Done Comments Sigmoidoscopy 2002 Fecal Occult Blood Test 05/23/2011 05/22/2010, 08/23 Pneumococcal Vaccine: 65+ Years (3 of 3 - PPSV23 or PCV20) 04/15/2019 02/18/2019, 07/29/2000 COVID-19 Vaccine (3 - Pfizer risk series) 06/12/2020 05/15/2020, 04/17/2020 *SPIROMETRY ONCE FOR ASTHMA-ADULT 03/18/2023 Mammogram 09/23/2023 09/22/2022, 09/06, 07/24/2021, Additional history exists DXA Scan 10/17/2023 10/16/2021, 10/07, 10/05/2019, Additional history exists Influenza Vaccine (FLU shot) (Season Ended) 2023 02/26/2021, 01/04/2020, 02/11/2019 Depression Screening 04/13/2024 04/13/2023 GFR 08/06/2024 08/28/2023, 07/09, 07/17/2023, Additional history exists Albumin/Creatinine Ratio 03/16/2026 03/16/2023 Diabetes Screening 07/16/2026 08/28/2023, 0 07/17/2023, 05/01/2023, Additional history exists Cologuard 08/10/2026 08/11/2023, 07/08, 08/05/2023, Additional history exists Colonoscopy 10/07/2027 10/06/2017, 07/29/2007 Colorectal Cancer Screening 10/07/2027 DTaP,Tdap,and Td Vaccines (4 - Td or Tdap) 07/22/2028 07/22/2018, 07/22/2018, 09/23/2007, Additional history exists Zoster Vaccines Completed 10/17/2019, 03/30/2019 VITAMIN D LEVEL ONCE IN A LIFETIME-USE SMARTSET# [id number] Completed 05/01/2023, 04/22/2022, 04/10/2021, Additional history exists GARDASIL-HPV IMMUNIZATION SERIES Aged Out No longer eligible based on patient's age to complete this topic Hepatitis B Aged Out No longer eligi ble based on patient's age to complete this topic MENINGOCOCCAL (MENACTRA/MENVEO) Aged Out No longer eligible based on patient's age to complete this topic documented as of this encounter Medical Devices Not on filedocumented as of this encounter Procedures Procedure Name Priority Date/Time Associated Diagnosis Comments CHEMISTRY-OUTSIDE Routine 08/28/2023 documented in this encounter Results * (ABNORMAL) CHEMISTRY-OUTSIDE (08/28/2023) Not all results display below - see scan for full detail OUTSIDE LAB (SEE SCANNED REPORT) Comment:CBCD, PT INR, PTT, B MP, UA CREATININE-OUTSID E LAB 0.57(A) 0.6 - 1.2 MG/DL OUTSIDE LAB (SEE SCANNED REPORT) EGFR-OUTSIDE LAB 112.0 OUT SIDE LAB (SEE SCANNED REPORT) POTASSIUM-OUTSIDE LAB 3.4(A) 3.5 - 5.1 MMOL/L OUTSIDE LAB (SEE SCANNED REPORT) GLUCOSE-OUTSIDE LAB 88 70 - 99 MG/DL OUTSIDE LAB (SEE SCANNED REPORT) HOURS FASTING OUTSID E LAB (SEE SCANNED REPORT) TRIGLYCERIDES-OUT SIDE LAB OUTSIDE LAB (SEE SCANNED REPORT) CHOLESTEROL-OUTSI DE LAB OUTSIDE LAB (SEE SCANNED REPORT) HDL-OUTSIDE LAB OUTS MELISSA LAB (SEE SCANNED REPORT) CHOL/HDL RATIO-OUTSIDE LAB OUTSIDE LA B (SEE SCANNED REPORT) LDL (CALCULATED)-OUTS MELISSA LAB OUTSIDE LAB (SEE SCANNED REPORT) LDL (DIRECT MEASURE)-OUTSIDE LAB OUTSIDE LAB (SEE SCANNED REPORT) HEMOGLOBIN, U8E-OHJBTXH LAB OUTSIDE LAB (SEE SCANNED REPORT) PHOSPHORUS-OUTSID E LAB OUTSIDE LAB (SEE SCANNED REPORT) PTH-OUTSIDE LAB OUTS MELISSA LAB (SEE SCANNED REPORT) MICROALBUMIN RATIO-OUTSIDE LAB OUTSIDE LA B (SEE SCANNED REPORT) PROTEIN, UA-OUTSIDE LAB NEG NEG OUTSIDE LAB (SEE SCANNED REPORT) HGB 12.9 12.0 - 16.0 G/DL OUTSIDE LAB (SEE SCANNED REPORT) 08/28/2023 David Valero DO LABORATORY OUTSIDE LAB (SEE SCANNED REPORT) documented in this encounter Care Teams Line Construction Superintendent Relationship Specialty Start Date End Date Doron Veloz DO [address] [place] [address] PCP - General Internal Medicine 08/28/23 documented as of this encounter
--- OUTSIDE RECORDS SUMMARY | 2023-09-16 20:26 | External Medical Summary | Summary of Care ---
Author Name Unknown Organization [facility] Address [address] [place] [address] Phone [phone] Care Team Providers Care Estimate Clerk Name Role Phone Doron Veloz DO Primary Care Provider [phone] Encounter Details Date Type Department Care Team (Late st Contact Info) Description 08/28/2023 Result Scan Unspecified Department <No scans attached> Allergies Active Allergy Reactions Criticality Noted Date [...] Oral Tablet (Cozaar)Indication s:Coronary artery disease involving prairie band coronary artery of prairie band heart without angina pectoris,Dyslipide edy, goal LDL [...] Oral Tablet (Lipitor)Indicatio ns:Coronary artery disease involving prairie band coronary artery of prairie band heart without angina pectoris,Dyslipide edy, goal LDL [...] Oral Tablet (Lopressor)Indicat ions:Coronary artery disease involving prairie band coronary artery of prairie band heart without angina pectoris,Dyslipide edy, goal LDL [...] inj 60 mgIndications:Senile osteoporosis 60 mg SC [id number] 05/04/2023 04/28/2024 Active documented as of this encounter (statuses as of 08/31/2023) Active Problems Problem Noted Date Diagnosed Date Intermittent asthma with rel iever use up to twice per week without complication 03/16/2023 Essential (primary) hypertension 12/24/2022 Senile osteoporosis 10/29/2022 Peripheral vascular disease 10/17/2019 Stenosis of subclavian artery 10/17/2019 Dyslipidemia, goal LDL below 70 05/25/2019 TRIPP-inhibitor cough 05/25/2019 Coronary artery disease invo lving prairie band coronary artery of prairie band heart without angina pectoris 02/11/2019 Presence of stent in left circumflex coronary ar dru 02/11/2019 History of heart attack 02/08/2019 Overview: Stent placed 02/05 per patient S/P right coronary artery (RCA) stent placement 02/07/2019 Localized osteoarthritis of left shoulder 2018 Hx of total hysterectomy wit h removal of both tubes and ovaries 12/28/2018 Overview: 2011- Cervix intact Arthritis of ankle, left 11/05/2017 [...] 04/13/2023 Does the household have a re lar source of income? (Household - for ages [...] 11:20 AM EDT Office Visit Family Practice [address] [place] [address] 293 [place] [address] Doron Veloz, 293 [facility], [place] [address] 10/27/2023 1:40 PM EDT Office Visit Family Practice 65 [facility] [address] [facility] [address] Doron Veloz, 293 [facility] [place] [address] 11/06/2023 11:20 AM EDT Office Visit Rheumatology [facility] [address] [place] [address] Ramón Malave MD [address] [facility] [place], [place] [address] 11/13/2023 11:00 AM EDT Office Visit Cardiology, [facility] [address] [facility] [place] [address] Alley Em PA-C [address] [place] [address] [address] 04/19/2024 2:00 PM EST Nurse Only Ancillary 65 [facility] [address] [place] [address] College, Nurse Annual Wellness Visit 65 [facility] [address] [place] [address] Health Maintenance Due Date Last Done Comments [...] D LEVEL ONCE IN A LIFETIME-USE SMARTSET# [id number] Completed 05/01/2023, 04/22/2022, 04/10/2021, Additional history exists [...] Procedure Name Priority Date/Time Associated Diagnosis Comments RADIOLOGY SCANNED RESULT 08/28/2023 documented in this encounter Results * RADIOLOGY SCANNED RESULT (08/28/2023) 08/28/2023 No Physician Data Unknown DIAGNOSTIC RAD IOLOGY SERVICES documented in this encounter Care Teams Estimate Clerk Relationship Specialty Start Date End Date Doron Veloz DO [address] [facility] [place] [address] PCP - General Internal Medicine 08/28/23 documented as of this encounter
[2023-09-16] MEDS: METOPROLOL TARTRATE 25 MG TAB PO SCH (21:07)
[2023-09-16] MEDS: VITAMIN B COMPLEX TAB PO SCH (21:07)
[2023-09-16] MEDS: ASPIRIN 81 MG ECTAB PO SCH (21:07)
[2023-09-16] MEDS: traMADol HCL 50 MG TABLET PO PRN (21:08)
[2023-09-16] MEDS: CHOLECALCIFEROL 25 MCG (1000 UNITS) TAB PO SCH (21:09)
[2023-09-16] MEDS: DOCUSATE SODIUM/SENNA 50/8.6MG TAB PO SCH (21:09)
[2023-09-16] MEDS: BACLOFEN 10 MG TAB PO SCH (21:09)
[2023-09-16] MEDS: FAMOTIDINE 20 MG TAB PO PRN (21:27)
[2023-09-17] MEDS: ACETAMINOPHEN 500 MG TAB PO PRN (02:54)
[2023-09-17] MEDS: POLYETHYLENE (MIRALAX) 17 GM PACK PO SCH (05:55)
[2023-09-17] MEDS: GABAPENTIN 300 MG CAP PO PRN (07:33)
[2023-09-17] MEDS: ISOSORBIDE MONO EXTENDED REL 30 MG TABCR PO SCH (07:34)
[2023-09-17] MEDS: EZETIMIBE 10 MG TAB PO SCH (07:34)
[2023-09-17] MEDS: CALCIUM CARBONATE 1250MG TAB PO SCH (07:34)
[2023-09-17] MEDS: ATORVASTATIN 40 MG TAB PO SCH (07:34)
[2023-09-17] MEDS ORDERED: NON-FORMULARY MEDICATION (Coq10 (Ubiquinol) 100 mg Capsule) PO SCH (09:00)
[2023-09-17] MEDS: LOSARTAN POTASSIUM 25 MG TAB PO SCH (09:29)
--- NOTE | 2023-09-17 10:58 | Hospitalist Progress Note ---
Date of Service September 17, 2023 Assessment & Plan (1) Myelopathy concurrent with and due to spinal stenosis of cervical region: (2) Rheumatoid arthritis: (3) Osteoporosis: (4) Dyslipidemia: (5) CAD (coronary artery disease): Plan This is a 68yr old F who has significant PMH of CAD with hx of RCA stent 02/05/19 and circumflex stent 02/07/19, Rheumatoid arthritis, subclavian artery stenosis, PVD, hx of LAUREL, hx of cervical spine fusion, osteoporosis who presents for elective neck surgery by Dr. Valero on 09/16/23. Cervical stenosis of spinal canal -Status post C3-C6 posterior decompression fusion by Dr. Valero, POD#1 -Pt having R sided neck/shoulder blade pain today, surgical team confirmed will discuss and see the pt regarding concerns today. -EBL 100ml, labs pending, follow -Pain/wound management per orthopedics Diet as per orthopedic CAD with history of coronary artery stent x2 HTN HLD -Chronic, stable, patient denies chest pain -Continue aspirin, statin, Zetia, metoprolol, Imdur and losartan (parameters placed on losartan) Rheumatoid arthritis -Follows rheumatology, chronic, stable -On orencia as OP -she has been taking prednisone consistently alternating between 5mg and 10mg, c urrently on IV decadron -pt to see Rheum in october as she feels orencia is not working Senile Osteoporosis -on Prolia, continue vit D and ca DVTppx: SCDS per primary Lines: MIKA drain Left posterior neck with 175 ml out, anderson catheter out FULL CODE PCP: Magdiel Dispo: per primary Our team will continue to follow the patient during their hospital stay. A total of 45 minutes were spent with greater than 50% of that time face to face with the patient, personally reviewing all current laboratories, imaging studies, past medication reconciliation, outpatient chart review, and discussion with specialists to collaborate care for the patient with attending. Please see attending documentation for corrections and/or additions. Admission and Anticipated Discharge Date Admission Date: September 16, 2023 Supervising Physician Co-Signing Physician Notes Patient was seen and examined at bedside as a follow-up of medical management status post C3-C6 posterior decompression fusion. Patient reports improvement in her LUE radicular signs and symptoms, reports operative pain under control. On examination: Patient on room air, cervical collar in situ, MIKA drain with moderate serosanguineous collection noted. Rest of the examination as above. I have seen and examined the patient and have discussed the case with the provider above. I agree with the assessment and plan as stated. Subjective Ms. Galvez is seen and examined this morning. She states she has significant concerns pain in her right neck down into the right shoulder blade region status post her surgery yesterday. Chronic pain since postop, only relieved with multiple pain medications. Rates pain as 8/10, vs the 9/10 on the left side prior to surgery. Previous left-sided neck pain and shoulder blade pain is completely resolved after having surgical procedure by Dr. Valero yesterday. Of note she is worried that this has exacerbated something in the right side as this pain only occurred previously whenever the left-sided pain was so bad that it transferred over onto the right. She denies any numbness or tingling. Can move her head in all directions, no swallowing difficulty, no issues with br eathing. Patient denies any lightheadedness or dizziness. She would like to discuss with Dr. Valero and his team prior to her discharge. Patient is frustrated that she has been told that this is due to lying on her right side during the operative procedure several times. She denies any issues with food consumption, abdominal pain, last bowel movement was yesterday. Pt has not urinated since anderson cath removed earlier this morning. 10 point ROS reviewed and otherwise negative. Physical Exam Physical Exam: General: awake, alert, no apparent distress, white female, c collar in place Head: Normocephalic, atraumatic ENT: PERRL, EOMI, no pharyngeal exudate, mucous membranes moist, C collar in place, dressing posteriorly is C/D/I Chest: Clear to auscultation, on room air, no adventitious breath sounds Cardiac: Regular rate and rhythm, no murmur, no JVD, normal peripheral pulses, good capillary refill Abdominal: NABS x 4 quadrants, soft, nondistended, nontender to palpation, no rebound or guarding Extremities: Normal inspection, no peripheral edema or erythema, calfs nontender to palpation : anderson catheter is removed Psych: Normal mood and affect Neuro: AAO x 3, strength intact bilaterally and rated 5/5, no motor deficits, speech is clear, no peripheral sensory deficits Results & Data Results & Data Vital Signs (Past 12 Hours) Vital Signs Temp Pulse Pulse Resp BP BP Pulse Ox 09/17/23 08:32 37.0 C 67 14 135/77 94 09/17/23 07:01 67 14 96 09/17/23 05:58 36.6 C 75 16 147/79 H 94 09/17/23 04:08 36.8 C 79 18 128/74 94 09/17/23 03:05 79 16 93 09/17/23 01:25 36.7 C 79 18 129/78 95 09/16/23 23:18 36.8 C 80 18 137/83 94 09/16/23 23:10 84 16 93 O2 Del Method 09/17/23 08:32 Room Air 09/17/23 07:01 Room Air 09/17/23 05:58 Room Air 09/17/23 04:08 Room Air 09/17/23 03:05 Room Air 09/17/23 01:25 Room Air 09/16/23 23:18 Room Air 09/16/23 23:10 Room Air
[2023-09-17 11:52] LABS: Hematocrit (blood only) 33.5 % (37.0-47.0); Hemoglobin 11.4 g/dl (12.0-16.0); Mean Corpuscular Hemoglobin 32.1 pg (25.0-34.0); Mean Corpuscular Volume 94.4 fL (80.0-100.0); Platelet Count 188 K/uL (130-400); RDW Coefficient of Variation 12.4 % (11.5-14.5); RDW Standard Deviation 43.1 fL (36.4-46.3); Red Blood Count 3.55 M/uL (4.20-5.40); White Blood Count 11.55 K/ul (4.8-10.8)
[2023-09-17 12:03] LABS: BUN Creatinine Ratio 18.6 (10-20); Calcium 9.1 mg/dl (8.6-10.3); Creatinine Clr Calc Pharmacy 68.2 ml/min; Est GFR (African American) 110.7 ml/min; Est GFR (Non-African American) 95.5 ml/min; Potassium 3.9 mmol/L (3.5-5.1)
--- NOTE | 2023-09-17 14:03 | Orthopedic Progress Note ---
Date of Service September 17, 2023 Assessment & Plan (1) Myelopathy concurrent with and due to spinal stenosis of cervical region: Plan: At this time we will continue with physical therapy. Monitor MIKA output. Hopefully discharge home tomorrow. Admission and Anticipated Discharge Date Admission Date: September 16, 2023 Subjective Patient's neck pain is controlled arm symptoms improved struggling with some right-sided neck pain. Physical Exam Physical Exam: On exam patient is able to bed patient is comfortable. Is good strength testing of her extremities. Results & Data Vital Signs (Past 12 Hours) Vital Signs Temp Pulse Pulse Resp BP BP Pulse Ox 09/17/23 11:00 75 16 97 09/17/23 08:32 37.0 C 67 14 135/77 94 09/17/23 07:01 67 14 96 09/17/23 05:58 36.6 C 75 16 147/79 H 94 09/17/23 04:08 36.8 C 79 18 128/74 94 09/17/23 03:05 79 16 93 O2 Del Method 09/17/23 11:00 Room Air 09/17/23 08:32 Room Air 09/17/23 07:01 Room Air 09/17/23 05:58 Room Air 09/17/23 04:08 Room Air 09/17/23 03:05 Room Air
[2023-09-17] MEDS: ONDANSETRON 4 MG OD TAB PO PRN (18:40)
[2023-09-18 09:00] LABS: Hemoglobin 12.2 g/dl (12.0-16.0); Mean Corpuscular Hemoglobin 32.3 pg (25.0-34.0); Mean Corpuscular Hgb Conc 33.9 g/dL (32.0-36.0); Mean Corpuscular Volume 95.2 fL (80.0-100.0); Mean Platelet Volume 9.2 fL (9.4-12.4); Platelet Count 199 K/uL (130-400); RDW Coefficient of Variation 12.8 % (11.5-14.5); RDW Standard Deviation 45.1 fL (36.4-46.3); Red Blood Count 3.78 M/uL (4.20-5.40); White Blood Count 12.58 K/ul (4.8-10.8)
[2023-09-18 09:22] LABS: BUN Creatinine Ratio 21.6 (10-20); Calcium 8.9 mg/dl (8.6-10.3); Creatinine Clr Calc Pharmacy 78.9 ml/min; Est GFR (African American) 116.1 ml/min; Est GFR (Non-African American) 100.2 ml/min
[2023-09-18 10:54] VITALS: PULSE 73; RESP 16; TEMP 97.9; O2SAT 96
--- NOTE | 2023-09-18 11:44 | Discharge Summary ---
Date of Service September 18, 2023 Admission HPI Per Admitting Provider This is a 68-year-old female well-known to me with cervical myelopathy. She is here for posterior decompression fusion. Principal Diagnosis Cervical spinal stenosis with myelopathy Discharge Data Allergies Allergy/AdvReac Type Severity Reaction Status Date / Time chlorhexidine Allergy Severe REDNESS/ITC Verified 09/16/23 08:42 ARBEN adhesive Allergy Unknown ALLERGIC Verified 09/16/23 08:42 TO TAPE, HOWEVER PAPER TAPE IS OK Consultations 09/16/23 13:38 Consult Hospitalist Routine Procedures Performed Operation Date: 09/16/23 09:35 Actual Procedures p C3-C6 Posterior Decompression and Fusion, Spinal Cord Monitoring(Not Applicable) - David Valero DO Ordered Studies 09/16/23 [place] cervical 2-3V Routine Hospital Course (1) Myelopathy concurrent with and due to spinal stenosis of cervical region: Patient underwent posterior cervical decompression collar as well as negative orthopedic for postoperative. Post ablation progressed appropriately arm symptoms improved. Tolerating physical therapy. Improved strength testing. Subsequent discharge home. Discharge orders instructions from the chart for further review. Total Time Total Time Spent Total Time Spent (In Minutes): 20 minutes Discharge Plan Discharge Items Patient Disposition: Home - Self-Care Reason For Visit: Myelopathy Concurrent with and due to Spinal Steno Discharge Diagnosis: Cervical spinal stenosis with myelopathy Activity: As commented below Non-emergency contact: Primary Care Provider Call non-emergency contact if: you have any medication questions Follow-up/Referrals: Doron Veloz DO [Primary Care Provider] - Diet: Regular Addtl Attending Provider Instructions: ACTIVITY RECOMMENDATIONS: SELF CARE INSTRUCTIONS AFTER CERVICAL FUSIONS 1. No smoking. Smoking drastically decreases the chance of a solid fusion. 2. No bending, lifting more than 5 pounds, or twisting (roll like a log when turning in bed). 3. You may shower 3 days after surgery. Thoroughly dry wound. Do not soak in the tub. 4. Cervical collar: Must be worn at all times including sleeping. You may remove the brace only to bath, eat and if you are sitting in a recliner. 5. Please walk as much as you can for exercise. Gradually increase the distance that you walk as your endurance increases. SPECIAL CARE INSTRUCTIONS: VERY IMPORTANT TO READ AND REVIEW A. Do not take any anti-inflammatory medications (i.e. Indocin, Advil, Aspirin, Naprosyn, Aleve, Motrin, etc.) as these may inhibit the chance of a solid fusion. Tylenol is okay to take. B. Your surgical incision has been closed with a cosmetic suture under the skin that will dissolve in about 6 weeks. In 14 days, you can use a pair of clean scissors and cut the suture that is left outside of the skin at the ends of your incision. C. Complications are uncommon, but please contact us if you have any signs or symptoms of: 1. wound infection (fever higher than 102.5 degrees F, redness, separation of wound, drainage, or increasing pain from the incision) 2. blood clots in legs (pain, swelling, redness and warmth in legs) 3. urinary tract infection (fever higher than 102.5 degrees, burning upon urination or increased frequency of urination) 4. nerve problems (inability to walk on your toes or heels, numbness, loss of bowel or bladder control) 5. any other symptoms that concern you. D. Please call the office at if you have any concerns or questions about your operation or recovery. MANAGING PAIN AFTER SPINAL SURGERY 1. Narcotic medication is intended for short-term use and will be provided for surgical pain. Surgical pain usually lasts for a period of 4-6 weeks. Narcotic medication includes Percocet, Vicodin, Darvocet, Tylenol #3 or Lortab. 2. Longer-term pain is more appropriately treated with non-narcotic medication such as Tylenol ES. 3. Muscle spasm is not appropriately treated with narcotics. Muscle relaxers such as Soma, Flexeril or Skelaxin can be used along with Tylenol ES. 4. Remember that we all live with some "aches and pains". This is not unusual or uncommon after an injury or as we get older. 5. We will provide appropriate medication within the normal guidelines of their prescribed use. We will also be very cautious and aware of potential abuse and extended duration of patients' medication needs. 6. Please allow 2-3 days to process refills. Prescriptions will not be mailed but must be picked up at the office. FOLLOW UP VISIT: Keep your scheduled follow-up appointment. Any questions, please call the office at . Pending Studies at Discharge: No Stand-Alone Forms: My [facility], Smoking Cessation Medications and DC Order Prescriptions: New oxycodone 5 mg tablet 5 mg PO Q6H PRN (Reason: pain) Qty: 30 0RF Continued metoprolol tartrate 25 mg tablet 25 mg PO BID Prolia 60 mg/mL Syringe 60 mg SUBCUT UD Patient Comments: every 6 months, due oct 2023 Rx Instructions: every six months aspirin [Ecotrin Low Strength] 81 mg tablet,delayed release (DR/EC) 81 mg PO HS calcium 600 mg Capsule 600 mg PO BID atorvastatin 80 mg Tablet 80 mg PO QAM prednisone 10 mg Tablet 10 mg PO UD PRN (Reason: ra flares) Rx Instructions: see taper instructions isosorbide mononitrate 30 mg Tablet Extended Release 24 Hr 30 mg PO QAM prednisone 5 mg Tablet 5 mg PO UD PRN (Reason: ra flares) tramadol 50 mg Tablet 50 - 100 mg PO UD PRN (Reason: Pain) losartan 25 mg Tablet 25 mg PO QAM vitamin B complex Tablet 1 tab PO HS ondansetron 4 mg Tablet,Disintegrating 4 mg PO UD PRN (Reason: taken with tramadol when taken) ezetimibe 10 mg Tablet 10 mg PO QAM cholecalciferol (vitamin D3) [Vitamin D3] 50 mcg (2,000 unit) Capsule 50 mcg PO HS gabapentin 300 mg Capsule 300 mg PO TID PRN (Reason: Pain) acetaminophen 500 mg Tablet 1,000 mg PO UD PRN (Reason: Pain) krill oil 500 mg Capsule 500 mg PO HS Orencia 125 mg/mL Syringe 0 mg SUBCUT WK Patient Comments: unknown mondays coQ10 (ubiquinol) 100 mg Capsule 100 mg PO QAM baclofen 10 mg Tablet 10 mg PO BID Discharge Orders: Discharge Order (Routine); Ordered 09/18/23 Ordered By: David Valero Admission Data Admit Date/Time: 09/16/23 11:50 Attending Provider: David Valero Admit Provider: David Valero Primary Care Provider: Doron Veloz Other Providers: Miryam Patricio; Cady Bray
[2023-09-18 12:09] VITALS: BP 146/79
--- NOTE | 2023-09-18 13:39 | Hospitalist Progress Note ---
Date of Service September 18, 2023 Assessment & Plan (1) Myelopathy concurrent with and due to spinal stenosis of cervical region: (2) Rheumatoid arthritis: (3) Osteoporosis: (4) Dyslipidemia: (5) CAD (coronary artery disease): Plan This is a 68yr old F who has significant PMH of CAD with hx of RCA stent 02/05/19 and circumflex stent 02/07/19, Rheumatoid arthritis, subclavian artery stenosis, PVD, hx of LAUREL, hx of cervical spine fusion, osteoporosis who presents for elective neck surgery by Dr. Valero on 09/16/23. Cervical stenosis of spinal canal -Status post C3-C6 posterior decompression fusion by Dr. Valero, POD#2 -Pt having R sided neck/shoulder blade pain today, surgical team confirmed will discuss and see the pt regarding concerns today. -EBL 100ml, labs pending, follow -Pain/wound management per orthopedics Diet as per orthopedic CAD with history of coronary artery stent x2 HTN HLD -Chronic, stable, patient denies chest pain -Continue aspirin, statin, Zetia, metoprolol, Imdur and losartan (parameters placed on losartan) Rheumatoid arthritis -Follows rheumatology, chronic, stable -On orencia as OP -she has been taking prednisone consistently alternating between 5mg and 10mg, c urrently on IV decadron -pt to see Rheum in october as she feels orencia is not working Senile Osteoporosis -on Prolia, continue vit D and ca DVTppx: SCDS per primary FULL CODE PCP: Magdiel Dispo: per primary Admission and Anticipated Discharge Date Admission Date: September 16, 2023 Subjective Patient was seen and examined at bedside. Patient reports operative site pain under control, reports upper extremity radicular signs and symptoms improvement. Patient feels better today. Reports eating okay and moving gas. Physical Exam Physical Exam: General: awake, alert, no apparent distress, white female, Head: Normocephalic, atraumatic ENT: PERRL, EOMI, no pharyngeal exudate, mucous membranes moist, dressing posteriorly is C/D/I. MIKA drain with scant serosanguineous collection noted. Chest: Clear to auscultation, on room air, no adventitious breath sounds Cardiac: Regular rate and rhythm, no murmur, no JVD, normal peripheral pulses, good capillary refill Abdominal: NABS x 4 quadrants, soft, nondistended, nontender to palpation, no rebound or guarding Extremities: Normal inspection, no peripheral edema or erythema, calfs nontender to palpation : anderson catheter is removed Psych: Normal mood and affect Neuro: AAO x 3, strength intact bilaterally and rated 5/5, no motor deficits, speech is clear, no peripheral sensory deficits Results & Data Results & Data Vital Signs (Past 12 Hours) Vital Signs Temp Pulse Pulse Resp BP BP Pulse Ox 09/18/23 12:07 36.6 C 84 73 16 142/76 H 146/79 H 96 09/18/23 10:52 36.6 C 84 73 16 142/76 H 96 09/18/23 08:55 36.8 C 86 17 142/84 H 95 09/18/23 07:23 36.5 C 100 H 18 155/85 H 97 09/18/23 07:09 76 13 96 09/18/23 03:45 145/85 H 09/18/23 03:35 36.4 C L 79 16 170/90 H 95 09/18/23 02:37 68 16 94 O2 Del Method FiO2 09/18/23 12:07 09/18/23 10:52 Room Air 09/18/23 08:55 Room Air 09/18/23 07:23 Room Air 09/18/23 07:09 Room Air 21 09/18/23 03:45 09/18/23 03:35 Room Air 09/18/23 02:37 Room Air
== END 2023-09-18 14:47 | disposition home or self-care (01) | DRG 472 ==
LOC: ASU 08:12 → 3E 11:50